=== PATIENT | female | born 1935 | race Caucasian/White ===

== ENCOUNTER 2017-01-17 13:27 | Inpatient (IN) | payer MEDICARE, BC ==
[2017-01-17] MEDS ORDERED: Levofloxacin/Dextrose 5%-Water 500 MG in Premix Bag 1 BAG IV SCH (14:00)
[2017-01-17] MEDS: Albuterol/Ipratropium 3.0-0.5 MG/3 ML Neb Soln NEB SCH ×2 (15:09→21:08)
--- NOTE | 2017-01-17 15:21 | CR ---
INDICATION: Cough. CHEST: PA and lateral views of the chest, 01/17/2017, compared with 07/24/2016 , revealed an appearance of infiltration at both lung bases, compatible with bibasilar pneumonia and left-sided pleuritis, since there is blunting of the left costophrenic angle and left posterior sulcus. These infiltrates appear new compared with the previous study. The heart is again noted to be enlarged with pacemaker leads unchanged in position from the right subclavian. Findings remain compatible with COPD, osteoporosis, and mild DJD lower thoracic spine with dextroconvex scoliosis again seen, slightly accentuated compared with the previous study. Lumpectomy and axillary node dissection noted on the left, as previously. IMPRESSION: 1. Bibasilar pneumonia and left pleuritis. 2. ASHD with cardiomegaly. No CHF. Pacemaker leads unchanged. 3. COPD. 4. Osteoporosis, scoliosis, DJD. 5. Left lumpectomy and axillary node dissection. MTDD
[2017-01-17] MEDS: Sodium Chloride 0.9% 10 ML Syringe FLUSH PRN (15:25)
[2017-01-17] MEDS: Sodium Chloride 0.9% 1,000 ML IV SCH (15:32)
[2017-01-17] MEDS ORDERED: Albuterol/Ipratropium 3.0-0.5 MG/3 ML Neb Soln NEB PRN (15:38)
--- NOTE | 2017-01-17 18:06 | PCM.HP ---
H&P History of Present Illness - General Date of Service: 01/17/17 Admit Problem/Dx: Admission Diagnosis/Problem Admission Diagnosis/Problem Pneumonia Source of Information: Patient History Limitations: Reports: No Limitations - History of Present Illness Initial Comments - Free Text/Narative: This is an 81-year-old female patient that has had cough for over a month. She' s been on several antibiotics. Including cephalexin and Omnicef. She had a chest x-ray a few weeks ago showed pneumonia. She is not getting better was seen today by Dr. Jones. He felt she should be admitted and she feels weak and has a cough that's mildly productive. She denies shortness of breath. She has some fevers and chills. No ear pain, nasal congestion or sore throat. History of asthma - Related Data Allergies/Adverse Reactions: Allergies Allergy/AdvReac Type Severity Reaction Status Date / Time ibuprofen Allergy Itching Verified 07/24/16 14:20 latex Allergy Itching Verified 07/24/16 14:20 Sulfa (Sulfonamide Allergy Stomach Verified 07/24/16 14:20 Antibiotics) Upset wheat Allergy Swelling Verified 07/24/16 14:20 codeine AdvReac Insomnia Verified 07/24/16 14:20 erythromycin base AdvReac Stomach Verified 07/24/16 14:20 Upset Home Medications: Home Meds ALPRAZolam [Xanax] 0.25 tab PO BID 06/25/14 [History] Acetaminophen 1,300 mg PO BID 06/25/14 [History] Doxepin [SINEquan] 25 mg PO BEDTIME 06/25/14 [History] FLUoxetine [PROzac] 10 mg PO DAILY 06/25/14 [History] FLUoxetine [PROzac] 20 mg PO DAILY 06/25/14 [History] Furosemide [Lasix] 20 mg PO DAILY 06/25/14 [History] Lisinopril [Prinivil] 5 mg PO BID 06/25/14 [History] Montelukast Sodium 10 mg PO DAILY 06/25/14 [History] Nitroglycerin [Nitrostat] 0.4 mg SL ASDIRECTED PRN 06/25/14 [History] Omeprazole 20 mg PO BIDAC 06/25/14 [History] Levothyroxine 75 mcg PO ACBRK 06/26/14 [History] Cyanocobalamin (Vitamin B-12) [Vitamin B-12] 500 mcg SL WITHDINNER 05/12/15 [ History] Acetaminophen [Pain Reliever] 1,000 mg PO WITHDINNER 03/10/16 [History] Clopidogrel [Plavix] 75 mg PO DAILY 03/10/16 [History] Dicyclomine [Bentyl] 20 mg PO WITHDINNER 03/10/16 [History] Fexofenadine HCl [Aller-Ease] 180 mg PO DAILY 03/10/16 [History] guaiFENesin [Mucinex] 600 mg PO BID PRN 03/10/16 [History] Albuterol [Proair HFA] 2 puff INH Q4HR PRN 03/24/16 [History] Fluticasone Propionate 2 spray JUSTEN DAILY 03/24/16 [History] Fluticasone/Salmeterol [Advair Diskus 500-50] 1 puff INH BID 03/24/16 [History] Potassium Chloride 20 meq PO BIDMEALS 03/24/16 [History] ALPRAZolam [Xanax] 0.25 mg PO DAILY PRN 07/24/16 [History] Digoxin 125 mcg PO DAILY 07/24/16 [History] Iron,Carbonyl/Ascorbic Acid [Vitron-C Tablet] 1 tab PO DAILY 07/25/16 [History] atorvaSTATin [Lipitor] 40 mg PO BEDTIME 07/25/16 [History] Ondansetron [Zofran ODT] 4 mg PO Q6H PRN #30 tab.dis 07/26/16 [Rx] Aspirin [Halfprin] 81 mg PO DAILY 01/17/17 [History] Calcium Carbonate/Vitamin D3 [Calcium 600 + Vit D Tablet] 1 tab PO WITHDINNER [History] Cholecalciferol (Vitamin D3) [Vitamin D3] 2,000 unit PO DAILY 01/17/17 [History] Dextromethorphan/guaiFENesin [Robitussin DM] 10 ml PO Q6H PRN 01/17/17 [History] Vit A/Vit C/Vit E/Selenium Yst [Antioxidant Formula Tablet] 1 tab PO BEDTIME 05/26 [History] Past Medical History HEENT History: Reports: Cataract Cardiovascular History: Reports: Automatic Implantable Cardioverter Defibrillators, Heart Failure, High Cholesterol, Hypertension, DC, SOB on Exertion, Stents Respiratory History: Reports: Asthma, SOB Gastrointestinal History: Reports: GERD 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: Musculoskeletal History: Reports: Other (See Below) Other Musculoskeletal History: chronic pain in both knees Psychiatric History: Reports: Anxiety, Depression Endocrine/Metabolic History: Reports: Hypothyroidism Oncologic (Cancer) History: Reports: Breast Dermatologic History: Reports: Eczema, Other (See Below) Other Dermatologic History: long ago - Infectious Disease History Infectious Disease History: Reports: Influenza, Measles, Mumps - Past Surgical History HEENT Surgical History: Reports: Cataract Surgery, Naso-Sinus Surgery, Other ( See Below) Cardiovascular Surgical History: Reports: Carotid Stents Female Surgical History: Reports: Mastectomy, Other (See Below) Social & Family History - Family History Family Medical History: Noncontributory - Tobacco Use Smoking Status *Q: Never Smoker Second Hand Smoke Exposure: No - Caffeine Use Caffeine Use: Reports: Coffee - Alcohol Use Days Per Week of Alcohol Use: 0 - Recreational Drug Use Recreational Drug Use: No H&P Review of Systems - Review of Systems: Review Of Systems: See Below General: Reports: Fever, Chills HEENT: Reports: No Symptoms Pulmonary: Reports: Cough, Sputum. Denies: Wheezing, Pleuritic Chest Pain, Hemoptysis Cardiovascular: Reports: No Symptoms Gastrointestinal: Reports: No Symptoms Genitourinary: Reports: No Symptoms Musculoskeletal: Reports: No Symptoms Skin: Reports: No Symptoms Psychiatric: Reports: No Symptoms Neurological: Reports: No Symptoms Hematologic/Lymphatic: Reports: No Symptoms Immunologic: Reports: No Symptoms Exam - Exam Exam: See Below - Vital Signs Vital Signs: Last Vital Signs Temp 97.9 F 01/17/17 15:45 Pulse 66 01/17/17 15:45 Resp 20 01/17/17 15:45 BP 119/51 L 01/17/17 15:45 Pulse Ox 96 01/17/17 15:45 Weight: 104 lb 1.6 oz - Exam General: Alert, Oriented, Cooperative HEENT: Mucosa Moist & [place], TMs Clear Neck: Supple, Trachea Midline Lungs: Clear to Auscultation, Normal Respiratory Effort. No: Crackles, Rales, Rhonchi, Rub Cardiovascular: Regular Rate, Regular Rhythm, Normal S1, Normal S2 Abdomen: Normal Bowel Sounds, Soft. No: Peritoneal Signs, Distention, Guarding Rectal (Female) Exam: Other Extremities: Normal Inspection Skin: Warm, Dry Neuro Extensive - Mental Status: Alert, Oriented x3, Normal Mood/Affect, Normal Cognition, Memory Intact Neuro Extensive - Motor, Sensory, Reflexes: Normal Gait Psychiatric: Alert, Normal Affect, Normal Mood - Patient Data Lab Results Last 24 hrs: Laboratory Results - last 24 hr 01/17/17 01/17/17 Range/Units 14:30 14:30 WBC 11.0 (4.5-12.0) X10-3/uL RBC 3.09 L (3.23-5.20) x10(6)uL Hgb 9.8 L (11.5-15.5) g/dL Hct 29.4 L (30.0-51.3) % MCV 95.1 (80-96) fL MCH 31.6 (27.7-33.6) pg MCHC 33.2 (32.2-35.4) g/dL RDW 12.3 (11.5-15.5) % Plt Count 308 (125-369) X10(3)uL MPV 7.6 (7.4-10.4) fL Add Manual Diff Yes Neutrophils % (Manual) 71 (46-82) % Band Neutrophils % 5 (0-6) % Lymphocytes % (Manual) 14 (13-37) % Monocytes % (Manual) 9 (4-12) % Eosinophils % (Manual) 1 (0-5) % Sodium 133 L (135-145) mmol/L Potassium 5.4 H D (3.5-5.3) mmol/L Chloride 106 D (100-110) mmol/L Carbon Dioxide 17 L (23-29) mmol/L BUN 28 H (8-23) mg/dL Creatinine 1.1 (0.6-1.3) mg/dL Est Cr Clr Drug Dosing 30.58 mL/min Estimated GFR (MDRD) 48 L (>60) BUN/Creatinine Ratio 25.5 H (9-20) Glucose 101 (80-116) mg/dL Calcium 9.5 (8.6-10.2) mg/dL Total Bilirubin 0.5 (0.1-1.3) mg/dL AST 21 D (5-27) IU/L ALT 24 D (14-26) IU/L Alkaline Phosphatase 52 L (56-112) IU/L Total Protein 7.6 (6.0-8.0) g/dL Albumin 3.2 (3.2-4.6) g/dL Globulin 4.4 g/dL Albumin/Globulin Ratio 0.7 Result Diagrams: 01/17/17 14:30 01/17/17 14:30 *Q Meaningful Use (ADM) - VTE *Q VTE Criteria *Q: - Stroke *Q Stroke Criteria *Q: - AMI *Q AMI Criteria *Q: - Problem List (1) Pneumonia of both lower lobes SNOMED Code(s): 502370791, 621640431 ICD Code: J18.9 - PNEUMONIA, UNSPECIFIED ORGANISM Status: Acute Current Visit: Yes Problem List Initiated/Reviewed/Updated: Yes Orders Last 24hrs: Active Orders 24 hr Category Date Time Status Patient Status [ADT] Routine ADT 01/17/17 13:38 Active Height and Weight [RC] DAILY Care 01/17/17 13:38 Active IS (RT) [RT Incentive Spirometry] [RC] ASDIRECTED Care 01/17/17 15:13 Active Intake and Output [RC] 06,14,22 Care 01/17/17 13:39 Active Oxygen Therapy [RC] PRN Care 01/17/17 13:38 Active RT Aerosol Therapy [RC] ASDIRECTED Care 01/17/17 13:40 Active Up With Assistance [RC] ASDIRECTED Care 01/17/17 13:38 Active VTE/DVT Education [RC] Per Unit Routine Care 01/17/17 13:38 Active Vital Signs [RC] 00,04,08,12,16,20 Care 01/17/17 13:38 Active Regular Diet [DIET] Diet 01/17/17 Breakfast Ordered CULTURE BLOOD [BC] Urgent Lab 01/17/17 14:30 Received CULTURE BLOOD [BC] Urgent Lab 01/17/17 14:35 Received CULTURE SPUTUM + SMEAR [RM] Stat Lab 01/17/17 16:00 Received Albuterol/Ipratropium [DuoNeb 3.0-0.5 MG/3 ML] Med 01/17/17 15:38 Active 3 ml NEB ASDIRECTED PRN Albuterol/Ipratropium [DuoNeb 3.0-0.5 MG/3 ML] Med 01/17/17 16:00 Active 3 ml NEB QIDRT Levofloxacin/Dextrose 5%-Water [Levaquin in D5W 250 MG/ Med 01/18/17 16:00 Active 50 ML] 250 mg Premix Bag 1 bag IV Q24H Piperacillin/Tazobactam [Zosyn] 2.25 gm Med 01/17/17 17:00 Active Sodium Chloride 0.9% [Normal Saline] 50 ml IV Q6H Sodium Chloride 0.9% [Normal Saline] 1,000 ml Med 01/17/17 13:45 Active IV ASDIRECTED Sodium Chloride 0.9% [Saline Flush] Med 01/17/17 13:38 Active 10 ml FLUSH ASDIRECTED PRN Blood Culture x2 Reflex Set [OM.PC] Urgent Oth 01/17/17 13:38 Ordered Peripheral IV Insertion Adult [OM.PC] Routine Oth 01/17/17 13:38 Ordered Resuscitation Status Routine Resus Stat 01/17/17 13:38 Ordered Medication Orders Albuterol/Ipratropium (Duoneb 3.0-0.5 Mg/3 Ml) 3 ml NEB QIDRT AMEE Last Admin: 01/17/17 15:09 Dose: 3 ml Albuterol/Ipratropium (Duoneb 3.0-0.5 Mg/3 Ml) 3 ml NEB ASDIRECTED PRN PRN Reason: SHORTNESS OF BREATH Piperacillin Sod/Tazobactam (Sod 2.25 gm/ Sodium Chloride) 50 mls @ 100 mls/hr IV Q6H AMEE Sodium Chloride (Normal Saline) 1,000 mls @ 100 mls/hr IV ASDIRECTED AMEE Last Admin: 01/17/17 15:32 Dose: 100 mls/hr Levofloxacin/Dextrose 250 mg/ (Premix) 50 mls @ 50 mls/hr IV Q24H AMEE Sodium Chloride (Saline Flush) 10 ml FLUSH ASDIRECTED PRN PRN Reason: Keep Vein Open Last Admin: 01/17/17 15:25 Dose: 10 ml Assessment/Plan Comment:: 1. Admit for pneumonia. 2. Antibodies ordered. See orders. 3. Regular diet. 4. Up ad krystal. 5. Patient wants to be a DNR. 6. Tessalon for cough. Nebulizers for cough when necessary.
[2017-01-17] MEDS ORDERED: GUAIFENESIN 100 MG/5 ML PO PRN (18:34)
[2017-01-17] MEDS ORDERED: Ondansetron 4 MG Tab.DIS PO PRN (18:40)
[2017-01-17] MEDS ORDERED: ALPRAZolam 0.25 MG Tab PO PRN (18:40)
[2017-01-17] MEDS ORDERED: guaiFENesin 600 MG Tab.ER PO PRN (18:40)
[2017-01-17] MEDS ORDERED: Nitroglycerin 0.4 MG Tab.SL SL PRN (18:40)
[2017-01-17] MEDS ORDERED: Albuterol 8 GM Inhaler INH PRN (18:40)
[2017-01-17] MEDS: Piperacillin/Tazobactam 2.25 GM in Sodium Chloride 0.9% 50 ML IV SCH ×3 (18:45)
[2017-01-17] MEDS: Levothyroxine 75 MCG Tab PO SCH (19:51)
[2017-01-17] MEDS: guaiFENesin/Dextromethorphan 100-10 MG/5 ML Soln 5 ML Cup PO PRN (19:53)
[2017-01-17] MEDS ORDERED: Acetaminophen 325 MG Tab PO SCH (21:00)
[2017-01-17] MEDS: Lisinopril 5 MG Tab PO SCH (21:09)
[2017-01-17] MEDS: Formoterol/Mometasone 200-5 MCG 8.8 GM Inhaler IH SCH (21:09)
[2017-01-17] MEDS: ALPRAZolam 0.25 MG Tab PO SCH (21:09)
[2017-01-17] MEDS: atorvaSTATin 40 MG Tab PO SCH (21:10)
[2017-01-17] MEDS: Doxepin 25 MG Cap PO SCH (21:10)
[2017-01-18] MEDS: Sodium Chloride 0.9% 1,000 ML IV SCH ×2 (03:43→14:43)
[2017-01-18] MEDS: Piperacillin/Tazobactam 2.25 GM in Sodium Chloride 0.9% 50 ML IV SCH ×4 (05:09→22:52)
[2017-01-18] MEDS: Formoterol/Mometasone 200-5 MCG 8.8 GM Inhaler IH SCH ×2 (07:04→20:05)
[2017-01-18] MEDS: Albuterol/Ipratropium 3.0-0.5 MG/3 ML Neb Soln NEB SCH ×4 (07:06→20:06)
[2017-01-18] MEDS ORDERED: Potassium Chloride 10 MEQ Tab.ER PO SCH (08:00)
[2017-01-18] MEDS ORDERED: Fluticasone Propionate Nasal Spray 16 GM Bottle NAS SCH (09:00)
[2017-01-18] MEDS: Potassium Chloride 20 MEQ Tab.ER PO SCH ×2 (09:21→18:05)
[2017-01-18] MEDS: Omeprazole 20 MG Cap.CR PO SCH ×2 (09:21→16:48)
[2017-01-18] MEDS: Levothyroxine 75 MCG Tab PO SCH (09:21)
[2017-01-18] MEDS: Aspirin 81 MG Tab.EC PO SCH (09:24)
[2017-01-18] MEDS: Furosemide 20 MG Tab PO SCH (09:24)
[2017-01-18] MEDS: Clopidogrel 75 MG Tab PO SCH (09:25)
--- NOTE | 2017-01-18 09:25 | PCM.PN ---
- General Info Date of Service: 01/18/17 Admission Dx/Problem (Free Text): Patient states she had a rough night. She normally takes Gas-X 3 times a day and did not have it so she did not sleep well. She has a little bit of cough which denies shortness of breath. She had a little fever but no chills. No nasal congestion, ear pain. - Patient Data Vitals - most recent: Last Vital Signs Temp 99.1 F 01/18/17 03:50 Pulse 74 01/18/17 07:10 Resp 20 01/18/17 03:50 BP 119/45 L 01/18/17 00:05 Pulse Ox 97 01/18/17 07:10 Weight - most recent: 104 lb 1.6 oz I&O - last 24 hours: Intake & Output 01/17/17 01/18/17 01/18/17 22:59 06:59 14:59 Intake Total 814 673 Output Total 200 850 Balance 614 -177 Lab Results last 24 hrs: Laboratory Results - last 24 hr 01/17/17 01/17/17 Range/Units 14:30 14:30 WBC 11.0 (4.5-12.0) X10-3/uL RBC 3.09 L (3.23-5.20) x10(6)uL Hgb 9.8 L (11.5-15.5) g/dL Hct 29.4 L (30.0-51.3) % MCV 95.1 (80-96) fL MCH 31.6 (27.7-33.6) pg MCHC 33.2 (32.2-35.4) g/dL RDW 12.3 (11.5-15.5) % Plt Count 308 (125-369) X10(3)uL MPV 7.6 (7.4-10.4) fL Add Manual Diff Yes Neutrophils % (Manual) 71 (46-82) % Band Neutrophils % 5 (0-6) % Lymphocytes % (Manual) 14 (13-37) % Monocytes % (Manual) 9 (4-12) % Eosinophils % (Manual) 1 (0-5) % Sodium 133 L (135-145) mmol/L Potassium 5.4 H D (3.5-5.3) mmol/L Chloride 106 D (100-110) mmol/L Carbon Dioxide 17 L (23-29) mmol/L BUN 28 H (8-23) mg/dL Creatinine 1.1 (0.6-1.3) mg/dL Est Cr Clr Drug Dosing 30.58 mL/min Estimated GFR (MDRD) 48 L (>60) BUN/Creatinine Ratio 25.5 H (9-20) Glucose 101 (80-116) mg/dL Calcium 9.5 (8.6-10.2) mg/dL Total Bilirubin 0.5 (0.1-1.3) mg/dL AST 21 D (5-27) IU/L ALT 24 D (14-26) IU/L Alkaline Phosphatase 52 L (56-112) IU/L Total Protein 7.6 (6.0-8.0) g/dL Albumin 3.2 (3.2-4.6) g/dL Globulin 4.4 g/dL Albumin/Globulin Ratio 0.7 Med Orders - Current: Current Medications Acetamin[facility] ([facility] Acetaminophen (Tylenol Arthritis Pain) 1,300 mg PO BID [facility] Albuterol (Ventolin Hfa) 0 gm INH Q4H PRN PRN Reason: Dyspnea Albuterol/Ipratropium (Duoneb 3.0-0.5 Mg/3 Ml) 3 ml NEB QIDRT [facility] Last Admin: 01/18/17 07:06 Dose: 3 ml Albuterol/Ipratropium (Duoneb 3.0-0.5 Mg/3 Ml) 3 ml NEB ASDIRECTED PRN PRN Reason: SHORTNESS OF BREATH Alprazolam (Xanax) 0.25 mg PO DAILY PRN PRN Reason: Anxiety Alprazolam (Xanax) 0.25 mg PO BID [facility] Last Admin: 01/17/17 21:09 Dose: 0.25 mg Aspirin (Halfprin) 81 mg PO DAILY [facility] Atorvastatin Calcium (Lipitor) 40 mg PO BEDTIME [facility] Last Admin: 01/17/17 21:10 Dose: 40 mg Calcium Carbonate (Calcium Carbonate/Vitamin D 1250 Mg-200 Unit) [facility] Cholecalciferol (Vitamin D3) 2,000 units PO DAILY [facility] Clopidogrel Bisulfate (Plavix) 75 mg PO DAILY [facility] Cyanocobalamin (Vitamin B12) [facility] Dicyclomine HCl (Bentyl) 20 mg PO WITHDINNER [facility] Digoxin (Lanoxin) 125 mcg PO DAILY [facility] Doxepin HCl (Sinequan) 25 mg PO BEDTIME [facility] Last Admin: 01/17/17 21:10 Dose: 25 mg Fexofenadine HCl (Chantal) 180 mg PO DAILY [facility] Fluoxetine HCl (Prozac) 10 mg PO DAILY [facility] Fluoxetine HCl (Prozac) 20 mg PO DAILY [facility] Fluticasone Propionate (Flonase) 0 gm NASBOTH BEDTIME [facility] Furosemide (Lasix) 20 mg PO DAILY [facility] Guaifenesin (Robitussin) 100 mg PO Q4H PRN PRN Reason: Cough Guaifenesin (Mucinex) 600 mg PO BID PRN PRN Reason: Cough Guaifenesin/Phenylephrine HCl (Robitussin Dm) 10 ml PO Q6H PRN PRN Reason: Cough Last Admin: 01/17/17 19:53 Dose: 10 ml Piperacillin Sod/Tazobactam (Sod 2.25 gm/ Sodium Chloride) 50 mls @ 100 mls/hr IV Q6H [facility] Last Admin: 01/18/17 05:09 Dose: 100 mls/hr Sodium Chloride (Normal Saline) 1,000 mls @ 100 mls/hr IV ASDIRECTED [facility] Last Admin: 01/18/17 03:43 Dose: 100 mls/hr Levofloxacin/Dextrose 250 mg/ (Premix) 50 mls @ 50 mls/hr IV Q24H [facility] Levothyroxine Sodium (Levothyroxine) 75 mcg PO ACBRK [facility] Last Admin: 01/18/17 09:21 Dose: 75 mcg Lisinopril (Prinivil) 5 mg PO BID [facility] Last Admin: 01/17/17 21:09 Dose: 5 mg Mometasone Furoate/Formoterol Fumar (Dulera 200-5 Mcg) 2 puff IH BIDRT [facility] Montelukast Sodium (Singulair) 10 mg PO DAILY [facility] Nitroglycerin (Nitrostat) 0.4 mg SL ASDIRECTED PRN PRN Reason: Chest Pain Non-Formulary Medication (Vit A/Vit C/Vit E/Selenium Yst [Antioxidant Formula Tablet]) 1 tab PO BEDTIME [facility] Non-Formulary Medication (Iron,Carbonyl/Ascorbic Acid [Vitron-C Tablet]) 1 tab PO DAILY [facility] Omeprazole (Omeprazole) 20 mg PO BIDAC [facility] Last Admin: 01/18/17 09:21 Dose: 20 mg Ondansetron HCl (Zofran Odt) 4 mg PO Q6H PRN PRN Reason: Nausea Potassium Chloride (Klor-Con M20) 20 meq PO BIDMEALS [facility] Last Admin: 01/18/17 09:21 Dose: 20 meq Simethicone (Simethicone) 80 mg PO TID PRN PRN Reason: Gas Sodium Chloride (Saline Flush) 10 ml FLUSH ASDIRECTED PRN PRN Reason: Keep Vein Open Last Admin: 01/17/17 15:25 Dose: 10 ml Discontinued Medications Acetaminophen (Tylenol) 1,300 mg PO BID [facility] Last Admin: 01/17/17 21:09 Dose: 1,300 mg Fluticasone Propionate (Flonase) 0 gm JUSTEN DAILY [facility] Levofloxacin/Dextrose 500 mg/ (Premix) 100 mls @ 100 mls/hr IV Q24H [facility] Stop: 01/17/17 17:00 Last Admin: 01/17/17 15:32 Dose: 100 mls/hr Mometasone Furoate/Formoterol Fumar (Dulera 200-5 Mcg) 2 puff IH BIDRT [facility] Last Admin: 01/18/17 07:04 Dose: 2 puff Potassium Chloride (Klor-Con 10) 20 meq PO BIDMEALS [facility] - Exam General: alert, oriented Neck: supple Lungs: Clear to auscultation, Normal respiratory effort. No: Crackles, Rales, Rhonchi, Rub Cardiovascular: Regular Rate, Regular Rhythm, No Murmurs - Problem List & Annotations (1) Pneumonia of both lower lobes SNOMED Code(s): 253902891, [id number] Code(s): J18.9 - PNEUMONIA, UNSPECIFIED ORGANISM Status: Acute Current Visit: Yes - Problem List Review Problem List Initiated/Reviewed/Updated: Yes - My Orders Last 24 Hours: My Active Orders 01/17/17 15:13 IS (RT) [RT Incentive Spirometry] [RC] ASDIRECTED 01/17/17 18:34 guaiFENesin [Robitussin] 100 mg PO Q4H PRN 01/17/17 18:40 ALPRAZolam [Xanax] 0.25 mg PO DAILY PRN Albuterol [Ventolin HFA] 0 gm INH Q4H PRN Dextromethorphan/guaiFENesin [Robitussin DM] 10 ml PO Q6H PRN Nitroglycerin [Nitrostat] 0.4 mg SL ASDIRECTED PRN Ondansetron [Zofran ODT] 4 mg PO Q6H PRN guaiFENesin [Mucinex] 600 mg PO BID PRN 01/17/17 18:45 Levothyroxine 75 mcg PO ACBRK 01/17/17 21:00 ALPRAZolam [Xanax] 0.25 mg PO BID Doxepin [SINEquan] 25 mg PO BEDTIME Lisinopril [Prinivil] 5 mg PO BID Vit A/Vit C/Vit E/Selenium Yst [Antioxidant Formula Tablet] 1 tab PO BEDTIME atorvaSTATin [Lipitor] 40 mg PO BEDTIME 01/18/17 07:30 Omeprazole 20 mg PO BIDAC 01/18/17 08:00 Potassium Chloride [Klor-Con M20] 20 meq PO BIDMEALS 01/18/17 08:55 Simethicone 80 mg PO TID PRN 01/18/17 09:00 Acetaminophen [Tylenol Arthritis Pain] 1,300 mg PO BID Aspirin [Halfprin] 81 mg PO DAILY Cholecalciferol (Vitamin D3) [Vitamin D3] 2,000 units PO DAILY Clopidogrel [Plavix] 75 mg PO DAILY Digoxin [Lanoxin] 125 mcg PO DAILY FLUoxetine [PROzac] 10 mg PO DAILY FLUoxetine [PROzac] 20 mg PO DAILY Fexofenadine [Chantal] 180 mg PO DAILY Furosemide [Lasix] 20 mg PO DAILY Iron,Carbonyl/Ascorbic Acid [Vitron-C Tablet] 1 tab PO DAILY Montelukast [Singulair] 10 mg PO DAILY 01/18/17 16:00 Levofloxacin/Dextrose 5%-Water [Levaquin in D5W 250 MG/50 ML] 250 mg Premix Bag 1 bag IV Q24H 01/18/17 18:00 Acetaminophen [Tylenol Extra Strength] 1,000 mg PO WITHDINNER Calcium Carbonate/Vitamin D3 [Calcium Carbonate/Vitamin D 1250 MG-200 Unit] 1 tab PO WITHDINNER Cyanocobalamin (Vitamin B12) [Vitamin B12] 500 mcg PO WITHDINNER Dicyclomine [Bentyl] 20 mg PO WITHDINNER 01/18/17 21:00 Fluticasone Propionate [Flonase] 0 gm NASBOTH BEDTIME Mometasone/Formoterol [Dulera 200-5 MCG] 2 puff IH BIDRT - Plan Plan:: 1. The head nurse called her daughter was pharmacist to find out what kind of gastric minutes and she was on. It was Gas-X 3 times a day. Will restart that. 2. Continue current care.
[2017-01-18] MEDS: Digoxin 125 MCG Tab PO SCH (09:28)
[2017-01-18] MEDS: Lisinopril 5 MG Tab PO SCH ×2 (09:28→20:07)
[2017-01-18] MEDS: Cholecalciferol (Vitamin D3) 1,000 Unit Tab PO SCH (09:29)
[2017-01-18] MEDS: FLUoxetine 10 MG Cap PO SCH (09:29)
[2017-01-18] MEDS: Montelukast 10 MG Tab PO SCH (09:29)
[2017-01-18] MEDS: FLUoxetine 20 MG Cap PO SCH (09:29)
[2017-01-18] MEDS: Acetaminophen 650 MG Tab.ER PO SCH ×2 (09:29→20:11)
[2017-01-18] MEDS: ALPRAZolam 0.25 MG Tab PO SCH ×2 (09:41→20:11)
[2017-01-18] MEDS: guaiFENesin/Dextromethorphan 100-10 MG/5 ML Soln 5 ML Cup PO PRN ×2 (09:46→15:44)
[2017-01-18] MEDS: Ferrous Sulfate 325 MG Tab PO SCH (11:09)
[2017-01-18] MEDS: Ascorbic Acid 500 MG Tab PO SCH (11:10)
[2017-01-18] MEDS: Fluticasone Propionate Nasal Spray 16 GM Bottle NASBOTH SCH ×2 (11:32→20:06)
[2017-01-18] MEDS: Trolamine Salicylate/Aloe Vera 10% Crm 85 GM Tube TOP PRN ×2 (15:55→22:58)
[2017-01-18] MEDS: Levofloxacin/Dextrose 5%-Water 250 MG in Premix Bag 1 BAG IV SCH (16:00)
[2017-01-18] MEDS: Dicyclomine 10 MG Cap PO SCH (18:04)
[2017-01-18] MEDS: Calcium Carbonate/Vitamin D3 1250 MG-200 Unit Tab PO SCH (18:04)
[2017-01-18] MEDS: Acetaminophen 500 MG Tab PO SCH (18:05)
[2017-01-18] MEDS: Cyanocobalamin (Vitamin B12) 500 MCG Tab PO SCH (18:05)
[2017-01-18] MEDS: atorvaSTATin 40 MG Tab PO SCH (20:06)
[2017-01-18] MEDS: Doxepin 25 MG Cap PO SCH (20:10)
[2017-01-18] MEDS: Benzonatate 100 MG Cap PO SCH (20:10)
[2017-01-18] MEDS: Multivitamins, Therapeutic with Minerals Tab PO SCH (20:11)
[2017-01-18] MEDS ORDERED: Fluticasone Propionate Nasal Spray 16 GM Bottle NASBOTH SCH (21:00)
[2017-01-18] MEDS: Simethicone 80 MG Tab.Chew PO PRN (23:56)
[2017-01-19] MEDS: guaiFENesin/Dextromethorphan 100-10 MG/5 ML Soln 5 ML Cup PO PRN ×3 (00:10→21:41)
[2017-01-19] MEDS: Piperacillin/Tazobactam 2.25 GM in Sodium Chloride 0.9% 50 ML IV SCH ×3 (04:55→17:04)
[2017-01-19] MEDS: Levothyroxine 75 MCG Tab PO SCH (06:45)
[2017-01-19] MEDS: Omeprazole 20 MG Cap.CR PO SCH ×2 (06:45→17:10)
[2017-01-19] MEDS: Formoterol/Mometasone 200-5 MCG 8.8 GM Inhaler IH SCH ×2 (06:45→20:51)
[2017-01-19] MEDS: Albuterol/Ipratropium 3.0-0.5 MG/3 ML Neb Soln NEB SCH ×4 (07:06→20:51)
--- NOTE | 2017-01-19 09:22 | PCM.PN ---
- General Info Date of Service: 01/19/17 Admission Dx/Problem (Free Text): Patient has less cough today. She states she's been using some Robitussin which is helping. She's also Tesnadiraon Temitope currently. She denies fevers, chills, shortness of breath. Still has some weakness and fatigue. - Patient Data Vitals - most recent: Last Vital Signs Temp 99.4 F 01/19/17 04:55 Pulse 78 01/19/17 07:10 Resp 18 01/19/17 04:55 BP 114/47 L 01/19/17 04:55 Pulse Ox 96 01/19/17 07:10 Weight - most recent: 104 lb 1.6 oz I&O - last 24 hours: Intake & Output 01/18/17 01/19/17 01/19/17 22:59 06:59 14:59 Intake Total 395 125 Output Total 600 1100 Balance -205 125 -1100 Charlie Results last 24 hrs: Microbiology 01/17/17 16:00 Gram Stain - Final Sputum - Expectorated Sputum Culture - Preliminary Gram Negative Rods 01/17/17 14:35 Aerobic Blood Culture - Preliminary Blood - Venous - Lab Draw NO GROWTH AFTER 1 DAY Anaerobic Blood Culture - Preliminary NO GROWTH AFTER 1 DAY 01/17/17 14:30 Aerobic Blood Culture - Preliminary Blood - Venous NO GROWTH AFTER 1 DAY Anaerobic Blood Culture - Preliminary NO GROWTH AFTER 1 DAY Med Orders - Current: Current Medications Acetaminophen (Tylenol Extra Strength) 1,000 mg PO WITHDINNER [facility] Last Admin: 01/18/17 18:05 Dose: 1,000 mg Acetaminophen (Tylenol Arthritis Pain) 1,300 mg PO BID [facility] Last Admin: 01/18/17 20:11 Dose: 1,300 mg Albuterol (Ventolin Hfa) 0 gm INH Q4H PRN PRN Reason: Dyspnea Albuterol/Ipratropium (Duoneb 3.0-0.5 Mg/3 Ml) 3 ml NEB QIDRT [facility] Last Admin: 01/19/17 07:06 Dose: 3 ml Albuterol/Ipratropium (Duoneb 3.0-0.5 Mg/3 Ml) 3 ml NEB ASDIRECTED PRN PRN Reason: SHORTNESS OF BREATH Alprazolam (Xanax) 0.25 mg PO DAILY PRN PRN Reason: Anxiety Alprazolam (Xanax) 0.25 mg PO BID [facility] Last Admin: 01/18/17 20:11 Dose: 0.25 mg Ascorbic Acid (Vitamin C) 500 mg PO DAILY [facility] Last Admin: 01/18/17 11:10 Dose: 500 mg Aspirin (Halfprin) 81 mg PO DAILY [facility] Last Admin: 01/18/17 09:24 Dose: 81 mg Atorvastatin Calcium (Lipitor) 40 mg PO BEDTIME [facility] Last Admin: 01/18/17 20:06 Dose: 40 mg Benzonatate (Tessalon Perles) 100 mg PO TID [facility] Last Admin: 01/18/17 20:10 Dose: 100 mg Calcium Carbonate (Calcium Carbonate/Vitamin D 1250 Mg-200 Unit) 1 tab PO WITHDINNER [facility] Last Admin: 01/18/17 18:04 Dose: 1 tab Cholecalciferol (Vitamin D3) 2,000 units PO DAILY [facility] Last Admin: 01/18/17 09:29 Dose: 2,000 units Clopidogrel Bisulfate (Plavix) 75 mg PO DAILY [facility] Last Admin: 01/18/17 09:25 Dose: 75 mg Cyanocobalamin (Vitamin B12) 500 mcg PO WITHDINNER [facility] Last Admin: 01/18/17 18:05 Dose: 500 mcg Dicyclomine HCl (Bentyl) 20 mg PO WITHDINNER [facility] Last Admin: 01/18/17 18:04 Dose: 20 mg Digoxin (Lanoxin) 125 mcg PO DAILY [facility] Last Admin: 01/18/17 09:28 Dose: 125 mcg Doxepin HCl (Sinequan) 25 mg PO BEDTIME [facility] Last Admin: 01/18/17 20:10 Dose: 25 mg Ferrous Sulfate (Ferrous Sulfate) 325 mg PO DAILY [facility] Last Admin: 01/18/17 11:09 Dose: 325 mg Fexofenadine HCl (Chantal) 180 mg PO DAILY [facility] Last Admin: 01/18/17 09:24 Dose: 180 mg Fluoxetine HCl (Prozac) 10 mg PO DAILY [facility] Last Admin: 01/18/17 09:29 Dose: 10 mg Fluoxetine HCl (Prozac) 20 mg PO DAILY [facility] Last Admin: 01/18/17 09:29 Dose: 20 mg Fluticasone Propionate (Flonase) 0 gm NASBOTH BID [facility] Last Admin: 01/18/17 20:06 Dose: 1 spray Furosemide (Lasix) 20 mg PO DAILY [facility] Last Admin: 01/18/17 09:24 Dose: 20 mg Guaifenesin (Robitussin) 100 mg PO Q4H PRN PRN Reason: Cough Guaifenesin/Phenylephrine HCl (Robitussin Dm) 10 ml PO Q6H PRN PRN Reason: Cough Last Admin: 01/19/17 00:10 Dose: 10 ml Piperacillin Sod/Tazobactam (Sod 2.25 gm/ Sodium Chloride) 50 mls @ 100 mls/hr IV Q6H [facility] Last Admin: 01/19/17 04:55 Dose: 100 mls/hr Levofloxacin/Dextrose 250 mg/ (Premix) 50 mls @ 50 mls/hr IV Q24H [facility] Last Admin: 01/18/17 16:00 Dose: 50 mls/hr Levothyroxine Sodium (Levothyroxine) 75 mcg PO ACBRK [facility] Last Admin: 01/19/17 06:45 Dose: 75 mcg Lisinopril (Prinivil) 5 mg PO BID [facility] Last Admin: 01/18/17 20:07 Dose: 5 mg Mometasone Furoate/Formoterol Fumar (Dulera 200-5 Mcg) 2 puff IH BIDRT [facility] Last Admin: 01/19/17 06:45 Dose: 2 puff Montelukast Sodium (Singulair) 10 mg PO DAILY [facility] Last Admin: 01/18/17 09:29 Dose: 10 mg Multivitamins/Minerals (Vitamins And Minerals) 1 tab PO BEDTIME [facility] Last Admin: 01/18/17 20:11 Dose: 1 tab Nitroglycerin (Nitrostat) 0.4 mg SL ASDIRECTED PRN PRN Reason: Chest Pain Omeprazole (Omeprazole) 20 mg PO BIDAC [facility] Last Admin: 01/19/17 06:45 Dose: 20 mg Ondansetron HCl (Zofran Odt) 4 mg PO Q6H PRN PRN Reason: Nausea Potassium Chloride (Klor-Con M20) 20 meq PO BIDMEALS [facility] Last Admin: 01/18/17 18:05 Dose: 20 meq Simethicone (Simethicone) 80 mg PO TID PRN PRN Reason: Gas Last Admin: 01/18/17 23:56 Dose: 80 mg Trolamine Salicylate (Aspercreme 10%) 1 gm TOP Q4H PRN PRN Reason: Pain Last Admin: 01/18/17 22:58 Dose: 1 applic Discontinued Medications Acetaminophen (Tylenol) 1,300 mg PO BID [facility] Last Admin: 01/17/17 21:09 Dose: 1,300 mg Fluticasone Propionate (Flonase) 0 gm JUSTEN DAILY [facility] Guaifenesin (Mucinex) 600 mg PO BID PRN PRN Reason: Cough Levofloxacin/Dextrose 500 mg/ (Premix) 100 mls @ 100 mls/hr IV Q24H [facility] Stop: 01/17/17 17:00 Last Admin: 01/17/17 15:32 Dose: 100 mls/hr Sodium Chloride (Normal Saline) 1,000 mls @ 100 mls/hr IV ASDIRECTED [facility] Last Admin: 01/18/17 14:43 Dose: 100 mls/hr Mometasone Furoate/Formoterol Fumar (Dulera 200-5 Mcg) 2 puff IH BIDRT [facility] Last Admin: 01/18/17 07:04 Dose: 2 puff Potassium Chloride (Klor-Con 10) 20 meq PO BIDMEALS [facility] Sodium Chloride (Saline Flush) 10 ml FLUSH ASDIRECTED PRN PRN Reason: Keep Vein Open Last Admin: 01/17/17 15:25 Dose: 10 ml - Exam General: alert, cooperative, moderate distress Lungs: Clear to auscultation, Normal respiratory effort. No: Crackles, Rales, Rhonchi Cardiovascular: Regular Rate, No Murmurs Extremities: no edema - Problem List & Annotations (1) Pneumonia of both lower lobes SNOMED Code(s): 551831962, 621057127 Code(s): J18.9 - PNEUMONIA, UNSPECIFIED ORGANISM Status: Acute Current Visit: Yes - Problem List Review Problem List Initiated/Reviewed/Updated: Yes - My Orders Last 24 Hours: My Active Orders 01/18/17 08:55 Simethicone 80 mg PO TID PRN 01/18/17 09:00 Acetaminophen [Tylenol Arthritis Pain] 1,300 mg PO BID Aspirin [Halfprin] 81 mg PO DAILY Cholecalciferol (Vitamin D3) [Vitamin D3] 2,000 units PO DAILY Clopidogrel [Plavix] 75 mg PO DAILY Digoxin [Lanoxin] 125 mcg PO DAILY FLUoxetine [PROzac] 10 mg PO DAILY FLUoxetine [PROzac] 20 mg PO DAILY Fexofenadine [Chantal] 180 mg PO DAILY Furosemide [Lasix] 20 mg PO DAILY Montelukast [Singulair] 10 mg PO DAILY 01/18/17 10:00 Fluticasone Propionate [Flonase] 0 gm NASBOTH BID 01/18/17 10:15 Ascorbic Acid [Vitamin C] 500 mg PO DAILY Ferrous Sulfate 325 mg PO DAILY 01/18/17 13:29 Trolamine Salicylate/Aloe Vera [Aspercreme 10%] 1 gm TOP Q4H PRN 01/18/17 16:00 Levofloxacin/Dextrose 5%-Water [Levaquin in D5W 250 MG/50 ML] 250 mg Premix Bag 1 bag IV Q24H 01/18/17 17:52 Up ad Valentine [RC] ASDIRECTED Convert IV to Saline Lock [OM.PC] Routine 01/18/17 18:00 Acetaminophen [Tylenol Extra Strength] 1,000 mg PO WITHDINNER Calcium Carbonate/Vitamin D3 [Calcium Carbonate/Vitamin D 1250 MG-200 Unit] 1 tab PO WITHDINNER Cyanocobalamin (Vitamin B12) [Vitamin B12] 500 mcg PO WITHDINNER Dicyclomine [Bentyl] 20 mg PO WITHDINNER 01/18/17 21:00 Benzonatate [Tessalon Perles] 100 mg PO TID Mometasone/Formoterol [Dulera 200-5 MCG] 2 puff IH BIDRT Multivitamins/Minerals [Vitamins and Minerals] 1 tab PO BEDTIME - Plan Plan:: 1. Blood cultures are negative so far. 2. Sputum culture grew gram negative rods. Discussed this with microbiology. They think they'll get identification by this afternoon. 3. Continue to ambulate the patient. Up in chair.
[2017-01-19] MEDS: Potassium Chloride 20 MEQ Tab.ER PO SCH ×2 (09:25→18:49)
[2017-01-19] MEDS: Ferrous Sulfate 325 MG Tab PO SCH (09:25)
[2017-01-19] MEDS: Fluticasone Propionate Nasal Spray 16 GM Bottle NASBOTH SCH ×2 (09:25→20:51)
[2017-01-19] MEDS: Digoxin 125 MCG Tab PO SCH (09:26)
[2017-01-19] MEDS: Aspirin 81 MG Tab.EC PO SCH (09:26)
[2017-01-19] MEDS: Furosemide 20 MG Tab PO SCH (09:26)
[2017-01-19] MEDS: Benzonatate 100 MG Cap PO SCH ×3 (09:27→21:26)
[2017-01-19] MEDS: Clopidogrel 75 MG Tab PO SCH (09:27)
[2017-01-19] MEDS: FLUoxetine 10 MG Cap PO SCH (09:27)
[2017-01-19] MEDS: Lisinopril 5 MG Tab PO SCH ×2 (09:27→21:23)
[2017-01-19] MEDS: Montelukast 10 MG Tab PO SCH (09:27)
[2017-01-19] MEDS: FLUoxetine 20 MG Cap PO SCH (09:27)
[2017-01-19] MEDS: Acetaminophen 650 MG Tab.ER PO SCH ×2 (09:28→21:27)
[2017-01-19] MEDS: ALPRAZolam 0.25 MG Tab PO SCH ×2 (09:28→21:41)
[2017-01-19] MEDS: Ascorbic Acid 500 MG Tab PO SCH (09:28)
[2017-01-19] MEDS: Cholecalciferol (Vitamin D3) 1,000 Unit Tab PO SCH (09:28)
[2017-01-19] MEDS: Simethicone 80 MG Tab.Chew PO PRN ×2 (12:55→21:41)
[2017-01-19] MEDS: Docusate Sodium 100 MG Cap PO SCH (12:55)
[2017-01-19] MEDS: Sodium Chloride 0.9% 10 ML Syringe FLUSH PRN (13:00)
[2017-01-19] MEDS ORDERED: Sodium Chloride 0.9% 250 ML IV SCH (16:00)
[2017-01-19] MEDS: Levofloxacin/Dextrose 5%-Water 250 MG in Premix Bag 1 BAG IV SCH (16:06)
--- NOTE | 2017-01-19 18:14 | PCM.SN ---
- Free Text/Narrative Note: Patient grew out pseudomonas aeruginosa sensitive to Cipro and Levaquin. Stop Zosyn and Levaquin. Start Cipro 500 mg twice a day by mouth.
[2017-01-19] MEDS: Acetaminophen 500 MG Tab PO SCH (18:49)
[2017-01-19] MEDS: Calcium Carbonate/Vitamin D3 1250 MG-200 Unit Tab PO SCH (18:49)
[2017-01-19] MEDS: Cyanocobalamin (Vitamin B12) 500 MCG Tab PO SCH (18:49)
[2017-01-19] MEDS: Dicyclomine 10 MG Cap PO SCH (18:49)
[2017-01-19] MEDS: Ciprofloxacin 500 MG Tab PO SCH (19:01)
[2017-01-19] MEDS: atorvaSTATin 40 MG Tab PO SCH (21:23)
[2017-01-19] MEDS: Doxepin 25 MG Cap PO SCH (21:26)
[2017-01-19] MEDS: Multivitamins, Therapeutic with Minerals Tab PO SCH (21:27)
[2017-01-20] MEDS: Formoterol/Mometasone 200-5 MCG 8.8 GM Inhaler IH SCH (06:35)
[2017-01-20] MEDS: Levothyroxine 75 MCG Tab PO SCH (06:36)
[2017-01-20] MEDS: Omeprazole 20 MG Cap.CR PO SCH (06:36)
[2017-01-20] MEDS: Albuterol/Ipratropium 3.0-0.5 MG/3 ML Neb Soln NEB SCH ×2 (07:24→11:20)
[2017-01-20] MEDS: Potassium Chloride 20 MEQ Tab.ER PO SCH (09:04)
[2017-01-20] MEDS: Cholecalciferol (Vitamin D3) 1,000 Unit Tab PO SCH (09:05)
[2017-01-20] MEDS: Ascorbic Acid 500 MG Tab PO SCH (09:05)
--- NOTE | 2017-01-20 09:05 | DISCH ---
DISCHARGE DATE: 01/20/2017 REASON FOR ADMISSION: 1. Community-acquired pneumonia. 2. History of congestive heart failure. 3. Generalized weakness. 4. Coronary artery disease. 5. Anxiety. DISCHARGE DIAGNOSES: 1. Community-acquired pneumonia. 2. History of congestive heart failure. 3. Generalized weakness. 4. Coronary artery disease. 5. Anxiety.. CONSULTATIONS: None. BRIEF HISTORY AND HOSPITAL COURSE: An 81-year-old female, admitted from the clinic by myself. She presented with chronic cough for more than four weeks after oral antibiotics failed. She was feeling weak, she was admitted, and treated with Zosyn/Levaquin initially. She improved progressively, was less short of breath by the 14th, and sputum grew Pseudomonas aeruginosa. She feels ready to go home and will be discharged on Levaquin. The rest of her home medications will be continued. >35 min FOLLOWUP: She will see Dr. Fuentes within 1 week of discharge. /[id number] ISHMAEL/JOVANI DELONG
[2017-01-20] MEDS: Docusate Sodium 100 MG Cap PO SCH (09:06)
[2017-01-20] MEDS: Ferrous Sulfate 325 MG Tab PO SCH (09:06)
[2017-01-20] MEDS: Furosemide 20 MG Tab PO SCH (09:07)
[2017-01-20] MEDS: Digoxin 125 MCG Tab PO SCH (09:07)
[2017-01-20] MEDS: Aspirin 81 MG Tab.EC PO SCH (09:07)
[2017-01-20] MEDS: Fluticasone Propionate Nasal Spray 16 GM Bottle NASBOTH SCH (09:07)
[2017-01-20] MEDS: FLUoxetine 20 MG Cap PO SCH (09:08)
[2017-01-20] MEDS: Montelukast 10 MG Tab PO SCH (09:08)
[2017-01-20] MEDS: Clopidogrel 75 MG Tab PO SCH (09:08)
[2017-01-20] MEDS: Lisinopril 5 MG Tab PO SCH (09:08)
[2017-01-20] MEDS: FLUoxetine 10 MG Cap PO SCH (09:08)
[2017-01-20] MEDS: Benzonatate 100 MG Cap PO SCH (09:08)
[2017-01-20 09:09] VITALS: BP 119/56
[2017-01-20] MEDS: Acetaminophen 650 MG Tab.ER PO SCH (09:09)
[2017-01-20] MEDS: Ciprofloxacin 500 MG Tab PO SCH (09:10)
[2017-01-20] MEDS: ALPRAZolam 0.25 MG Tab PO SCH (09:11)
--- NOTE | 2017-01-20 10:52 | PN ---
DATE SEEN: 01/20/2017 CHIEF COMPLAINT: Pneumonia. HISTORY OF PRESENT ILLNESS: This is an 81-year-old female, admitted a few days ago with pneumonia. She slept well. She feels better in terms of strength. No cough, wheezing, or fever. She is ready to go home today. PAST MEDICAL HISTORY: She has a long-standing history of anxiety, CHF, hypertension, and CAD. REVIEW OF SYSTEMS: All other systems negative. PHYSICAL EXAMINATION: VITAL SIGNS: Today her blood pressure is normal, pulse is 82, and temperature 97.7. EARS, NOSE, AND THROAT: Negative. HEAD: Normal size. CHEST: Clear. CARDIOVASCULAR: S1, S2 normal. EXTREMITIES: No edema. LABORATORY DATA: Microbiology showed Pseudomonas aeruginosa in the sputum. Blood cultures were negative. IMPRESSION: 1. Community-acquired pneumonia. 2. Congestive heart failure, stable. PLAN: To discharge her home today on Levaquin based on the sensitivity on the culture results. /[id number] ISHMAEL/JOVANI
== END 2017-01-20 11:30 | disposition home health service (06) | DRG 195 ==
LOC: FB.MS 14:26
PROVIDERS: ADMIT Family Medicine; ATTEND Family Medicine
DX: J18.9 Pneumonia, unspecified organism (principal); R53.1 Weakness; I11.0 Hypertensive heart disease with heart failure; I50.9 Heart failure, unspecified; I25.10 Atherosclerotic heart disease of native coronary artery without angina pectoris; G89.29 Other chronic pain; M25.562 Pain in left knee; M25.561 Pain in right knee; E03.9 Hypothyroidism, unspecified; F41.9 Anxiety disorder, unspecified; F32.9 Major depressive disorder, single episode, unspecified; K21.9 Gastro-esophageal reflux disease without esophagitis; I25.2 Old myocardial infarction; Z85.3 Personal history of malignant neoplasm of breast; Z88.6 Allergy status to analgesic agent; Z79.82 Long term (current) use of aspirin; Z88.1 Allergy status to other antibiotic agents; Z91.040 Latex allergy status; Z88.5 Allergy status to narcotic agent; Z88.2 Allergy status to sulfonamides; Z91.018 Allergy to other foods
CPT/HCPCS: 36415; 71020; 80053; 85025; 87040; 87070; 87077; 87186; 87205; 94150; 94640-76; 94664; A9270; A9270-GY; J1956; J2543; J7040; J7050; J7620

== ENCOUNTER 2017-03-02 19:25 | Observation (INO) | payer MEDICARE, BC ==
--- NOTE | 2017-03-02 20:07 | EDM.PDOC ---
ED HPI GENERAL MEDICAL PROBLEM - General Chief Complaint: Neurological Problem Stated Complaint: FALL Time Seen by Provider: 03/02/17 19:28 Source of Information: Reports: Patient, Family History Limitations: Reports: Physical Impairment - History of Present Illness INITIAL COMMENTS - FREE TEXT/NARRATIVE: 81 y.o.w.f. with h/o Pneumonia had a small dinner, walked to the bathroom passed out in the bathroom, not able to get up and ambulate due to feeling week. . Pt was brought to the ed with family by PC. She had chills while here in the ed. . Pt is a poor historian. No N/V/D. BP was 185/87 pulse was 66 Pt stated she was feeling "sick" a few days prior to that event today. She was able to elevate both upper and lower extremities for 5 sec. and had equal muscle strength. However, her tongue was deviated to the right (new. Old?) Onset: Today Onset Date: 03/02/17 Onset Time: 17:00 Duration: Minutes:, Intermittent Location: Reports: Generalized Severity: Moderate Improves with: Reports: Immobilization, Rest Worsens with: Reports: Movement Associated Symptoms: Reports: Fever/Chills - Related Data Allergies Allergy/AdvReac Type Severity Reaction Status Date / Time ibuprofen Allergy Itching Verified 03/02/17 19:45 latex Allergy Itching Verified 03/02/17 19:45 Sulfa (Sulfonamide Allergy Stomach Verified 03/02/17 19:45 Antibiotics) Upset codeine AdvReac Insomnia Verified 03/02/17 19:45 erythromycin base AdvReac Stomach Verified 03/02/17 19:45 Upset Home Meds: Home Meds ALPRAZolam [Xanax] 0.25 tab PO BID 06/25/14 [History] Doxepin [SINEquan] 25 mg PO BEDTIME 06/25/14 [History] FLUoxetine [PROzac] 10 mg PO DAILY 06/25/14 [History] FLUoxetine [PROzac] 20 mg PO DAILY 06/25/14 [History] Furosemide [Lasix] 20 mg PO DAILY 06/25/14 [History] Lisinopril [Prinivil] 5 mg PO BID 06/25/14 [History] Montelukast Sodium 10 mg PO DAILY 06/25/14 [History] Nitroglycerin [Nitrostat] 0.4 mg SL ASDIRECTED PRN 06/25/14 [History] Omeprazole 20 mg PO BIDAC 06/25/14 [History] Levothyroxine 75 mcg PO ACBRK 06/26/14 [History] Cyanocobalamin (Vitamin B-12) [Vitamin B-12] 500 mcg SL WITHDINNER 05/12/15 [ History] Acetaminophen [Pain Reliever] 1,000 mg PO WITHDINNER 03/10/16 [History] Clopidogrel [Plavix] 75 mg PO DAILY 03/10/16 [History] Dicyclomine [Bentyl] 20 mg PO WITHDINNER 03/10/16 [History] Fexofenadine HCl [Aller-Ease] 180 mg PO DAILY 03/10/16 [History] Albuterol [Proair HFA] 2 puff INH Q4HR PRN 03/24/16 [History] Fluticasone Propionate 1 spray JUSTEN BID 03/24/16 [History] Fluticasone/Salmeterol [Advair Diskus 500-50] 1 puff INH BID 03/24/16 [History] Potassium Chloride 20 meq PO BIDMEALS 03/24/16 [History] ALPRAZolam [Xanax] 0.25 mg PO DAILY PRN 07/24/16 [History] Digoxin 125 mcg PO DAILY 07/24/16 [History] Iron,Carbonyl/Ascorbic Acid [Vitron-C Tablet] 1 tab PO DAILY 07/25/16 [History] atorvaSTATin [Lipitor] 40 mg PO BEDTIME 07/25/16 [History] Ondansetron [Zofran ODT] 4 mg PO Q6H PRN #30 tab.dis 07/26/16 [Rx] Aspirin [Halfprin] 81 mg PO DAILY 01/17/17 [History] Calcium Carbonate/Vitamin D3 [Calcium 600 + Vit D Tablet] 1 tab PO WITHDINNER [History] Cholecalciferol (Vitamin D3) [Vitamin D3] 2,000 unit PO DAILY 01/17/17 [History] Vit A/Vit C/Vit E/Selenium Yst [Antioxidant Formula Tablet] 1 tab PO BEDTIME 05/26 [History] Acetaminophen [Tylenol Arthritis Pain] 1,300 mg PO BID 01/18/17 [History] Past Medical History HEENT History: Reports: Cataract Cardiovascular History: Reports: Automatic Implantable Cardioverter Defibrillators, Heart Failure, High Cholesterol, Hypertension, CO, SOB on Exertion, Stents Respiratory History: Reports: Asthma, SOB Gastrointestinal History: Reports: G[employer] History: Reports: Musculoskeletal History: Reports: Other (See Below) Other Musculoskeletal History: chronic pain in both knees Psychiatric History: Reports: Anxiety, Depression Endocrine/Metabolic History: Reports: Hypothyroidism Oncologic (Cancer) History: Reports: Breast Dermatologic History: Reports: Eczema, Other (See Below) Other Dermatologic History: long ago - Infectious Disease History Infectious Disease History: Reports: Influenza, Measles, Mumps - Past Surgical History HEENT Surgical History: Reports: Cataract Surgery, Naso-Sinus Surgery, Other ( See Below) Cardiovascular Surgical History: Reports: Carotid Stents Female Surgical History: Reports: Mastectomy, Other (See Below) Social & Family History - Family History Family Medical History: Noncontributory - Tobacco Use Smoking Status *Q: Never Smoker Second Hand Smoke Exposure: No - Caffeine Use Caffeine Use: Reports: Coffee - Alcohol Use Days Per Week of Alcohol Use: 0 - Recreational Drug Use Recreational Drug Use: No ED ROS GENERAL - Review of Systems Review Of Systems: Unable To Obtain ED EXAM, NEURO - Physical Exam Exam: See Below Exam Limited By: Physical Impairment General Appearance: Alert, Mild Distress, Thin Eye Exam: Bilateral Eye: Normal Inspection Ears: Normal External Exam, Normal Canal Nose: Normal Inspection, Normal Mucosa Throat/Mouth: Normal Lips, Normal Gums, Normal Oropharynx, Normal Voice, No Airway Compromise, Other (dry mucosal membrane) Head Exam: Normocephalic, Facial Tenderness (from a prev injury) Neck: Normal Inspection, Supple Respiratory/Chest: No Respiratory Distress, Normal Breath Sounds, No Accessory Muscle Use Cardiovascular: Normal Peripheral Pulses, Regular Rate, Rhythm, No Edema GI/Abdominal: Normal Bowel Sounds, Soft, Non-Tender, No Organomegaly (Female) Exam: Deferred Rectal (Female) Exam: Deferred Neurological: Alert, Normal Mood/Affect, Oriented x 3, Abnormal Gait, Ataxia, Abnormal Finger to Nose, Difficulty Walking Back Exam: Normal Inspection, Full Range of Motion Extremities: Normal Inspection, Normal Range of Motion, Non-Tender Psychiatric: Normal Affect, Normal Mood Skin Exam: Warm, Dry, Intact, Normal Color, No Rash EKG INTERPRETATION EKG Date: 03/02/17 Time: 21:15 Rhythm: NSR Rate (Beats/Min): 79 [place]: Normal P-Wave: Present QRS: Normal ST-T: Normal QT: Normal Comparison: NA - No Prior EKG Course - Vital Signs Text/Narrative:: . 81 y.o.w.f. with h/o Pneumonia had a small dinner, walked to the bathroom passed out in the bathroom, not able to get up and ambulate due to "feeling week ". . Pt was brought to the ed with family by PC. She had chills while here in the ed. . Pt is a poor historian. No N/V/D. BP was 185/87 pulse was 66 Pt stated she was feeling "sick" a few days prior to that event today. She was able to elevate both upper and lower extremities for 5 sec. and had equal muscle strength. However, her tongue was deviated to the right (new. Old?) PE: unsteady gate, Pos FNT, Tongue deviated to the right, unable to ambulate. Bilat MS 5/5, Labs: WBC nl Na 133, K nl, BUN/Cr ration is elevated UA pos for UTI Imaging: CT head and Neck: NAD, CXR: defibrilator, NAD. MRI of brain and neck were ordered, results are pending Impression: Syncopal episode with collapse (vasovagal) , UTI, Dehydration, H/O Pneumonia, CVA vs TIA (tongue deviation to the right (new, old?), Ataxia, unsteady gate, Hypotension. Tx: NS. [place] Plan: Admit to tele. Last Recorded V/S: Last Vital Signs Temp 36.9 C 03/03/17 00:00 Pulse 78 03/03/17 05:15 Resp 16 03/03/17 05:15 BP 103/39 L 03/03/17 05:15 Pulse Ox 99 03/03/17 05:15 - Orders/Labs/Meds Orders: Active Orders 24 hr Category Date Time Status Patient Status [ADT] Routine ADT 03/02/17 22:24 Active Cardiac Monitoring [RC] CONTINUOUS Care 03/02/17 22:26 Active Oxygen Therapy [RC] 00,08,16 Care 03/02/17 22:24 Active Up With Assistance [RC] ASDIRECTED Care 03/02/17 22:23 Active Vital Signs [RC] 00,04,08,12,16,20 Care 03/02/17 22:24 Active Full Liquid Diet [DIET] Diet 03/02/17 Breakfast Active CXR [Chest 1V Frontal] [CR] Stat Exams 03/02/17 21:48 Taken Cervical Spine wo Cont [CT] Stat Exams 03/02/17 20:02 Taken Head wo Cont [CT] Stat Exams 03/02/17 20:02 Ordered CULTURE BLOOD [BC] Urgent Lab 03/02/17 21:55 Received CULTURE BLOOD [BC] Urgent Lab 03/02/17 22:01 Received Levofloxacin/Dextrose 5%-Water [Levaquin in D5W 750 MG/ Med 03/02/17 22:00 Active 150 ML] 750 mg Premix Bag 1 bag IV Q24H Ondansetron [Zofran] Med 03/02/17 22:23 Active 4 mg IV Q4H PRN Sodium Chloride 0.9% [Saline Flush] Med 03/02/17 22:23 Active 10 ml FLUSH ASDIRECTED PRN Blood Culture x2 Reflex Set [OM.PC] Urgent Oth 03/02/17 21:45 Ordered Peripheral IV Insertion Adult [OM.PC] Routine Oth 03/02/17 22:23 Ordered EKG 12 Lead [EK] Routine Ther 03/02/17 20:21 Ordered Medication Orders Acetaminophen (Tylenol Arthritis Pain) 1,300 mg PO BID AMEE Albuterol (Ventolin Hfa) 0 gm INH Q2H PRN PRN Reason: Shortness of Breath Last Admin: 03/03/17 01:35 Dose: 2 puff Alprazolam (Xanax) 0.25 mg PO BID AMEE Last Admin: 03/03/17 01:36 Dose: 0.25 mg Levofloxacin/Dextrose 750 mg/ (Premix) 150 mls @ 100 mls/hr IV Q24H AMEE Last Admin: 03/02/17 22:52 Dose: 100 mls/hr Sodium Chloride (Normal Saline) 250 mls @ 100 mls/hr IV ASDIRECTED AMEE Last Admin: 03/02/17 22:50 Dose: 100 mls/hr Ondansetron HCl (Zofran) 4 mg IV Q4H PRN PRN Reason: Nausea/Vomiting Last Admin: 03/03/17 01:40 Dose: 4 mg Advair 500/50 Inhaler Own Med* * 1 each INH BID AMEE Last Admin: 03/03/17 01:36 Dose: 1 each Sodium Chloride (Saline Flush) 10 ml FLUSH ASDIRECTED PRN PRN Reason: Keep Vein Open Labs: Laboratory Tests 03/02/17 03/02/17 03/02/17 Range/Units 20:35 20:35 20:35 WBC 11.5 (4.5-12.0) X10-3/uL RBC 3.38 (3.23-5.20) x10(6)uL Hgb 10.8 L (11.5-15.5) g/dL Hct 32.4 (30.0-51.3) % MCV 95.8 (80-96) fL MCH 31.9 (27.7-33.6) pg MCHC 33.3 (32.2-35.4) g/dL RDW 13.3 (11.5-15.5) % Plt Count 247 (125-369) X10(3)uL MPV 7.5 (7.4-10.4) fL Neut % (Auto) 82.0 (46-82) % Lymph % (Auto) 9.8 L (13-37) % [place] % (Auto) 5.4 (4-12) % Eos % (Auto) 2 (1.0-5.0) % Baso % (Auto) 1 (0-2) % Neut # (Auto) 9.5 H (1.6-8.3) # Lymph # (Auto) 1.1 (0.6-5.0) # [place] # (Auto) 0.6 (0.0-1.3) # Eos # (Auto) 0.2 (0.0-0.8) # Baso # (Auto) 0.1 (0.0-0.2) # PT 9.8 (8.7-11.1) INR 0.97 (0.89-1.13) Sodium 133 L (135-145) mmol/L Potassium 4.5 (3.5-5.3) mmol/L Chloride 103 (100-110) mmol/L Carbon Dioxide 20 L (23-29) mmol/L BUN 28 H (8-23) mg/dL Creatinine 1.0 (0.6-1.3) mg/dL Est Cr Clr Drug Dosing 40.38 mL/min Estimated GFR (MDRD) 53 L (>60) BUN/Creatinine Ratio 28.0 H (9-20) Glucose 122 H (80-116) mg/dL Lactic Acid (0.5-2.2) mmol/L Calcium 9.6 (8.6-10.2) mg/dL C-Reactive Protein (0.0-1.0) mg/dL B-Natriuretic Peptide (0-100) pg/mL Urine Color (YELLOW) Urine Appearance (CLEAR) Urine pH (5.0-6.5) Ur Specific [place] (1.010-1.025) Urine Protein (NEGATIVE) mg/dL Urine Glucose (UA) (NEGATIVE) mg/dL Urine Ketones (NEGATIVE) mg/dL Urine Occult Blood (NEGATIVE) Urine Nitrite (NEGATIVE) Urine Bilirubin (NEGATIVE) Urine Urobilinogen (NEGATIVE) mg/dL Ur Leukocyte Esterase (NEGATIVE) Urine RBC (0) Urine WBC (0) Ur Squamous Epith Cells (NS,R,O) Urine Bacteria (NS) 03/02/17 03/02/17 03/02/17 Range/Units 20:35 20:35 20:35 WBC (4.5-12.0) X10-3/uL RBC (3.23-5.20) x10(6)uL Hgb (11.5-15.5) g/dL Hct (30.0-51.3) % MCV (80-96) fL MCH (27.7-33.6) pg MCHC (32.2-35.4) g/dL RDW (11.5-15.5) % Plt Count (125-369) X10(3)uL MPV (7.4-10.4) fL Neut % (Auto) (46-82) % Lymph % (Auto) (13-37) % [place] % (Auto) (4-12) % Eos % (Auto) (1.0-5.0) % Baso % (Auto) (0-2) % Neut # (Auto) (1.6-8.3) # Lymph # (Auto) (0.6-5.0) # [place] # (Auto) (0.0-1.3) # Eos # (Auto) (0.0-0.8) # Baso # (Auto) (0.0-0.2) # PT (8.7-11.1) INR (0.89-1.13) Sodium (135-145) mmol/L Potassium (3.5-5.3) mmol/L Chloride (100-110) mmol/L Carbon Dioxide (23-29) mmol/L BUN (8-23) mg/dL Creatinine (0.6-1.3) mg/dL Est Cr Clr Drug Dosing mL/min Estimated GFR (MDRD) (>60) BUN/Creatinine Ratio (9-20) Glucose (80-116) mg/dL Lactic Acid 2.7 H (0.5-2.2) mmol/L Calcium (8.6-10.2) mg/dL C-Reactive Protein 0.7 (0.0-1.0) mg/dL B-Natriuretic Peptide 132 H (0-100) pg/mL Urine Color (YELLOW) Urine Appearance (CLEAR) Urine pH (5.0-6.5) Ur Specific [place] (1.010-1.025) Urine Protein (NEGATIVE) mg/dL Urine Glucose (UA) (NEGATIVE) mg/dL Urine Ketones (NEGATIVE) mg/dL Urine Occult Blood (NEGATIVE) Urine Nitrite (NEGATIVE) Urine Bilirubin (NEGATIVE) Urine Urobilinogen (NEGATIVE) mg/dL Ur Leukocyte Esterase (NEGATIVE) Urine RBC (0) Urine WBC (0) Ur Squamous Epith Cells (NS,R,O) Urine Bacteria (NS) 03/02/17 Range/Units 20:45 WBC (4.5-12.0) X10-3/uL RBC (3.23-5.20) x10(6)uL Hgb (11.5-15.5) g/dL Hct (30.0-51.3) % MCV (80-96) fL MCH (27.7-33.6) pg MCHC (32.2-35.4) g/dL RDW (11.5-15.5) % Plt Count (125-369) X10(3)uL MPV (7.4-10.4) fL Neut % (Auto) (46-82) % Lymph % (Auto) (13-37) % [place] % (Auto) (4-12) % Eos % (Auto) (1.0-5.0) % Baso % (Auto) (0-2) % Neut # (Auto) (1.6-8.3) # Lymph # (Auto) (0.6-5.0) # [place] # (Auto) (0.0-1.3) # Eos # (Auto) (0.0-0.8) # Baso # (Auto) (0.0-0.2) # PT (8.7-11.1) INR (0.89-1.13) Sodium (135-145) mmol/L Potassium (3.5-5.3) mmol/L Chloride (100-110) mmol/L Carbon Dioxide (23-29) mmol/L BUN (8-23) mg/dL Creatinine (0.6-1.3) mg/dL Est Cr Clr Drug Dosing mL/min Estimated GFR (MDRD) (>60) BUN/Creatinine Ratio (9-20) Glucose (80-116) mg/dL Lactic Acid (0.5-2.2) mmol/L Calcium (8.6-10.2) mg/dL C-Reactive Protein (0.0-1.0) mg/dL B-Natriuretic Peptide (0-100) pg/mL Urine Color Yellow (YELLOW) Urine Appearance Clear (CLEAR) Urine pH 5.0 (5.0-6.5) Ur Specific [place] 1.015 (1.010-1.025) Urine Protein Negative (NEGATIVE) mg/dL Urine Glucose (UA) Normal (NEGATIVE) mg/dL Urine Ketones Negative (NEGATIVE) mg/dL Urine Occult Blood Negative (NEGATIVE) Urine Nitrite Negative (NEGATIVE) Urine Bilirubin Negative (NEGATIVE) Urine Urobilinogen Normal (NEGATIVE) mg/dL Ur Leukocyte Esterase Small H (NEGATIVE) Urine RBC 0-5 (0) Urine WBC 0-5 (0) Ur Squamous Epith Cells Moderate H (NS,R,O) Urine Bacteria Few H (NS) Meds: Medications Generic Name Dose Route Start Last Admin Trade Name Freq PRN Reason Stop Dose Admin Acetaminophen 1,300 mg 03/03/17 01:00 Tylenol Arthritis Pain PO BID AMEE Albuterol 0 gm 03/03/17 01:05 03/03/17 01:35 Ventolin Hfa INH 2 puff Q2H PRN Administration Shortness of Breath Alprazolam 0.25 mg 03/03/17 01:00 03/03/17 01:36 Xanax PO 0.25 mg BID AMEE Administration Levofloxacin/Dextrose 750 mg/ 150 mls @ 100 mls/hr 03/02/17 22:00 03/02/17 22 :52 Premix IV 100 mls/hr Q24H AMEE Administration Sodium Chloride 250 mls @ 100 mls/hr 03/02/17 22:45 03/02/17 22:50 Normal Saline IV 100 mls/hr ASDIRECTED AMEE Administration Ondansetron HCl 4 mg 03/02/17 22:23 03/03/17 01:40 Zofran IV 4 mg Q4H PRN Administration Nausea/Vomiting Advair 500/50 1 each 03/03/17 01:00 03/03/17 01:36 Inhaler Own Med* INH 1 each * BID AMEE Administration Sodium Chloride 10 ml 03/02/17 22:23 Saline Flush FLUSH ASDIRECTED PRN Keep Vein Open Discontinued Medications Generic Name Dose Route Start Last Admin Trade Name Freq PRN Reason Stop Dose Admin Acetaminophen 1,300 mg 03/03/17 01:00 03/03/17 01:35 Tylenol Arthritis Pain PO 03/03/17 01:01 1,300 mg ONETIME ONE Administration Departure - Departure Time of Disposition: 22:29 Disposition: Refer to Observation Condition: Fair Clinical Impression: Syncope and collapse, Dehydration UTI (urinary tract infection) Qualifiers: Urinary tract infection type: acute cystitis - Discharge Information - My Orders Last 24 Hours: My Active Orders 03/02/17 20:02 Cervical Spine wo Cont [CT] Stat Head wo Cont [CT] Stat 03/02/17 20:21 EKG 12 Lead [EK] Routine 03/02/17 21:45 Blood Culture x2 Reflex Set [OM.PC] Urgent 03/02/17 21:48 CXR [Chest 1V Frontal] [CR] Stat 03/02/17 21:55 CULTURE BLOOD [BC] Urgent 03/02/17 22:00 Levofloxacin/Dextrose 5%-Water [Levaquin in D5W 750 MG/150 ML] 750 mg Premix Bag 1 bag IV Q24H 03/02/17 22:01 CULTURE BLOOD [BC] Urgent 03/02/17 22:23 Up With Assistance [RC] ASDIRECTED Ondansetron [Zofran] 4 mg IV Q4H PRN Sodium Chloride 0.9% [Saline Flush] 10 ml FLUSH ASDIRECTED PRN Peripheral IV Insertion Adult [OM.PC] Routine 03/02/17 22:24 Patient Status [ADT] Routine Oxygen Therapy [RC] 00,08,16 Vital Signs [RC] 00,04,08,12,16,20 03/02/17 22:26 Cardiac Monitoring [RC] CONTINUOUS 03/02/17 Breakfast Full Liquid Diet [DIET] - Assessment/Plan Last 24 Hours: My Active Orders 03/02/17 20:02 Cervical Spine wo Cont [CT] Stat Head wo Cont [CT] Stat 03/02/17 20:21 EKG 12 Lead [EK] Routine 03/02/17 21:45 Blood Culture x2 Reflex Set [OM.PC] Urgent 03/02/17 21:48 CXR [Chest 1V Frontal] [CR] Stat 03/02/17 21:55 CULTURE BLOOD [BC] Urgent 03/02/17 22:00 Levofloxacin/Dextrose 5%-Water [Levaquin in D5W 750 MG/150 ML] 750 mg Premix Bag 1 bag IV Q24H 03/02/17 22:01 CULTURE BLOOD [BC] Urgent 03/02/17 22:23 Up With Assistance [RC] ASDIRECTED Ondansetron [Zofran] 4 mg IV Q4H PRN Sodium Chloride 0.9% [Saline Flush] 10 ml FLUSH ASDIRECTED PRN Peripheral IV Insertion Adult [OM.PC] Routine 03/02/17 22:24 Patient Status [ADT] Routine Oxygen Therapy [RC] 00,08,16 Vital Signs [RC] 00,04,08,12,16,20 03/02/17 22:26 Cardiac Monitoring [RC] CONTINUOUS 03/02/17 Breakfast Full Liquid Diet [DIET]
[2017-03-02] MEDS ORDERED: Levofloxacin/Dextrose 5%-Water 750 MG in Premix Bag 1 BAG IV SCH (22:00)
[2017-03-02] MEDS ORDERED: Sodium Chloride 0.9% 10 ML Syringe FLUSH PRN (22:23)
[2017-03-02] MEDS ORDERED: Ondansetron 4 MG/2 ML SDV IV PRN (22:23)
[2017-03-02] MEDS ORDERED: Sodium Chloride 0.9% 250 ML IV SCH (22:45)
[2017-03-03] MEDS ORDERED: Acetaminophen 650 MG Tab.ER PO SCH (01:00)
[2017-03-03] MEDS ORDERED: ADVAIR INH SCH ×2 (01:00→09:00)
[2017-03-03] MEDS ORDERED: Acetaminophen 650 MG Tab.ER PO ONE (01:00)
[2017-03-03] MEDS ORDERED: Albuterol Inhaler **OWN MED INH PRN (01:05)
[2017-03-03] MEDS: ALPRAZolam 0.25 MG Tab PO SCH ×2 (01:36→10:32)
[2017-03-03] MEDS ORDERED: Nitroglycerin 0.4 MG Tab.SL SL PRN (08:26)
[2017-03-03] MEDS ORDERED: Albuterol 8 GM Inhaler *PTOM INH PRN (08:26)
[2017-03-03] MEDS ORDERED: Ondansetron 4 MG Tab.DIS *PTOM PO PRN (08:26)
--- NOTE | 2017-03-03 08:38 | PCM.HP ---
H&P History of Present Illness - General Date of Service: 03/03/17 Admit Problem/Dx: Admission Diagnosis/Problem Admission Diagnosis/Problem Syncope and collapse Source of Information: Patient, Old Records History Limitations: Reports: No Limitations - History of Present Illness Initial Comments - Free Text/Narative: 81-year-old female brought in yesterday after fall. She had had dinner and the later was found on bathroom floor,having possibly fainted. She feels weak and unable to ambulate independently. She lives in an independent living facility. She denies headache fever or chills but has been feeling sick for a few days.No urinary symptoms or cough.She is chronically short short of breath due to history of CHF and history of pneumonia shows of a history of COPD that has been stable. - Related Data Allergies/Adverse Reactions: Allergies Allergy/AdvReac Type Severity Reaction Status Date / Time ibuprofen Allergy Itching Verified 03/02/17 19:45 latex Allergy Itching Verified 03/02/17 19:45 Sulfa (Sulfonamide Allergy Stomach Verified 03/02/17 19:45 Antibiotics) Upset codeine AdvReac Insomnia Verified 03/02/17 19:45 erythromycin base AdvReac Stomach Verified 03/02/17 19:45 Upset Home Medications: Home Meds ALPRAZolam [Xanax] 0.25 tab PO BID 06/25/14 [History] Doxepin [SINEquan] 25 mg PO BEDTIME 06/25/14 [History] FLUoxetine [PROzac] 10 mg PO DAILY 06/25/14 [History] FLUoxetine [PROzac] 20 mg PO DAILY 06/25/14 [History] Furosemide [Lasix] 20 mg PO DAILY 06/25/14 [History] Lisinopril [Prinivil] 5 mg PO BID 06/25/14 [History] Montelukast Sodium 10 mg PO DAILY 06/25/14 [History] Nitroglycerin [Nitrostat] 0.4 mg SL ASDIRECTED PRN 06/25/14 [History] Omeprazole 20 mg PO BIDAC 06/25/14 [History] Levothyroxine 75 mcg PO ACBRK 06/26/14 [History] Cyanocobalamin (Vitamin B-12) [Vitamin B-12] 500 mcg SL WITHDINNER 05/12/15 [ History] Acetaminophen [Pain Reliever] 1,000 mg PO WITHDINNER 03/10/16 [History] Clopidogrel [Plavix] 75 mg PO DAILY 03/10/16 [History] Dicyclomine [Bentyl] 20 mg PO WITHDINNER 03/10/16 [History] Fexofenadine HCl [Aller-Ease] 180 mg PO DAILY 03/10/16 [History] Albuterol [Proair HFA] 2 puff INH Q4HR PRN 03/24/16 [History] Fluticasone Propionate 1 spray JUSTEN BID 03/24/16 [History] Fluticasone/Salmeterol [Advair Diskus 500-50] 1 puff INH BID 03/24/16 [History] Potassium Chloride 20 meq PO BIDMEALS 03/24/16 [History] ALPRAZolam [Xanax] 0.25 mg PO DAILY PRN 07/24/16 [History] Digoxin 125 mcg PO DAILY 07/24/16 [History] Iron,Carbonyl/Ascorbic Acid [Vitron-C Tablet] 1 tab PO DAILY 07/25/16 [History] atorvaSTATin [Lipitor] 40 mg PO BEDTIME 07/25/16 [History] Ondansetron [Zofran ODT] 4 mg PO Q6H PRN #30 tab.dis 07/26/16 [Rx] Aspirin [Halfprin] 81 mg PO DAILY 01/17/17 [History] Calcium Carbonate/Vitamin D3 [Calcium 600 + Vit D Tablet] 1 tab PO WITHDINNER [History] Cholecalciferol (Vitamin D3) [Vitamin D3] 2,000 unit PO DAILY 01/17/17 [History] Vit A/Vit C/Vit E/Selenium Yst [Antioxidant Formula Tablet] 1 tab PO BEDTIME 05/26 [History] Acetaminophen [Tylenol Arthritis Pain] 1,300 mg PO BID 01/18/17 [History] Past Medical History HEENT History: Reports: Cataract Other HEENT History: Experiences sinus headaches. Cardiovascular History: Reports: Automatic Implantable Cardioverter Defibrillators, Heart Failure, High Cholesterol, Hypertension, ID, SOB on Exertion, Stents Respiratory History: Reports: Asthma, SOB Gastrointestinal History: Reports: [employer] History: Reports: Musculoskeletal History: Reports: Other (See Below) Other Musculoskeletal History: chronic pain in both knees Psychiatric History: Reports: Anxiety, Depression Endocrine/Metabolic History: Reports: Hypothyroidism Oncologic (Cancer) History: Reports: Breast Other Oncologic History: Left breast. Dermatologic History: Reports: Eczema, Other (See Below) Other Dermatologic History: long ago - Infectious Disease History Infectious Disease History: Reports: Influenza, Measles, Mumps - Past Surgical History HEENT Surgical History: Reports: Cataract Surgery, Naso-Sinus Surgery, Other ( See Below) Cardiovascular Surgical History: Reports: Carotid Stents Female Surgical History: Reports: Mastectomy, Other (See Below) Social & Family History - Family History Family Medical History: Noncontributory - Tobacco Use Smoking Status *Q: Never Smoker Second Hand Smoke Exposure: No - Caffeine Use Caffeine Use: Reports: Coffee Other Caffeine Use: Drinks decaf coffee and green tea. - Alcohol Use Days Per Week of Alcohol Use: 0 Number of Drinks Per Day: 1 Total Drinks Per Week: 0 - Recreational Drug Use Recreational Drug Use: No H&P Review of Systems - Review of Systems: Review Of Systems: ROS reveals no pertinent complaints other than HPI. Exam - Exam Exam: See Below - Vital Signs Vital Signs: Last Vital Signs Temp 98.5 F 03/03/17 00:00 Pulse 78 03/03/17 05:15 Resp 16 03/03/17 05:15 BP 103/39 L 03/03/17 05:15 Pulse Ox 99 03/03/17 05:15 Weight: 49.759 kg - Exam Quality Assessment: Supplemental Oxygen General: Alert, Oriented, 4 HEENT: PERRLA, Hearing Intact, Mucosa Moist & [place], Nares Patent, Normal Nasal Septum, Posterior Pharynx Clear, Conjunctiva Clear, EOMI, EACs Clear, TMs Clear Neck: Supple, Trachea Midline, 2 Lungs: Clear to Auscultation, Normal Respiratory Effort Cardiovascular: Regular Rate, Regular Rhythm GI/Abdominal Exam: Normal Bowel Sounds, Soft, Non-Tender, No Organomegaly, No Distention, No Abnormal Bruit, No Mass, Pelvis Stable (Female) Exam: Deferred Rectal (Female) Exam: Deferred Back Exam: Normal Inspection, Full Range of Motion, NT Extremities: Normal Inspection, Normal Range of Motion, Non-Tender, No Pedal Edema, Normal Capillary Refill Skin: Warm, Dry, Intact Neurological: Cranial Nerves Intact, Reflexes Equal Bilateral Neuro Extensive - Mental Status: Alert, Oriented x3, Normal Mood/Affect, Normal Cognition Neuro Extensive - Motor, Sensory, Reflexes: CN II-XII Intact, Normal Gait, Normal Reflexes Psychiatric: Alert, Normal Affect, Normal Mood - Patient Data Result Diagrams: 03/02/17 20:35 03/02/17 20:35 EKG INTERPRETATION Rhythm: NSR *Q Meaningful Use (ADM) - VTE *Q VTE Criteria *Q: - Stroke *Q Stroke Criteria *Q: - AMI *Q AMI Criteria *Q: - Problem List (1) CHF (congestive heart failure) SNOMED Code(s): 06548848 ICD Code: I50.9 - HEART FAILURE, UNSPECIFIED Status: Chronic Current Visit: Yes Qualifiers: Congestive heart failure type: unspecified congestive heart failure type Congestive heart failure chronicity: chronic Qualified Code(s): I50.9 - Heart failure, unspecified (2) CAD (coronary artery disease) SNOMED Code(s): 62416522 ICD Code: I25.10 - ATHSCL HEART DISEASE OF [place] CORONARY ARTERY W/O ANG PCTRS Status: Chronic Priority: Low Current Visit: Yes Qualifiers: Coronary Disease-Associated Artery/Lesion type: [place] artery (3) Weakness SNOMED Code(s): 39489223 ICD Code: R53.1 - WEAKNESS Status: Acute Current Visit: Yes (4) Syncope and collapse SNOMED Code(s): 779350337 ICD Code: R55 - SYNCOPE AND COLLAPSE Status: Acute Current Visit: Yes Problem List Initiated/Reviewed/Updated: Yes Orders Last 24hrs: Active Orders 24 hr Category Date Time Status Discontinue Telemetry Monitoring [Cardiac Monitoring Care 03/03/17 08:33 Ordered Discontinue] [RC] Click to Edit RT Post Treatment Assessment [RC] Click to Edit Care 03/03/17 01:06 Active OT Evaluation and Treatment [CONS] Routine Cons 03/03/17 08:26 Ordered PT Evaluation and Treatment [CONS] Routine Cons 03/03/17 08:26 Ordered Ang Neck w wo Cont [MR] Routine Exams 03/03/17 07:00 Ordered Brain w Cont [MR] Routine Exams 03/03/17 07:00 Ordered DIGOXIN [CHEM] Routine Lab 03/03/17 08:31 Ordered TSH ULTRASENSITIVE [CHEM] Routine Lab 03/03/17 08:31 Ordered ALPRAZolam [Xanax] Med 03/03/17 01:00 Active 0.25 mg PO BID Acetaminophen [Tylenol Arthritis Pain] Med 03/03/17 01:00 Pending 1,300 mg PO BID Acetaminophen [Tylenol Arthritis Pain] Med 03/03/17 09:00 Ordered 1,300 mg PO BID Acetaminophen [Tylenol Extra Strength] Med 03/03/17 18:00 Ordered 1,000 mg PO WITHDINNER Albuterol [Ventolin HFA] Med 03/03/17 01:05 Active 0 gm INH Q2H PRN Albuterol [Ventolin HFA] Med 03/03/17 08:26 Ordered 2 puff INH Q4HR PRN Aspirin [Halfprin] Med 03/03/17 09:00 Ordered 81 mg PO DAILY Calcium Carbonate/Vitamin D3 [Calcium 600 + Vit D Med 03/03/17 18:00 Ordered Tablet] 1 tab PO WITHDINNER Cholecalciferol (Vitamin D3) [Vitamin D3] Med 03/03/17 09:00 Ordered 2,000 unit PO DAILY Clopidogrel [Plavix] Med 03/03/17 09:00 Ordered 75 mg PO DAILY Cyanocobalamin (Vitamin B-12) [Vitamin B-12] Med 03/03/17 18:00 Ordered 500 mcg SL WITHDINNER Dicyclomine [Bentyl] Med 03/03/17 18:00 Ordered 20 mg PO WITHDINNER Digoxin [Lanoxin] Med 03/03/17 09:00 Ordered 125 mcg PO DAILY Doxepin [SINEquan] Med 03/03/17 21:00 Ordered 25 mg PO BEDTIME FLUoxetine [PROzac] Med 03/03/17 09:00 Ordered 10 mg PO DAILY FLUoxetine [PROzac] Med 03/03/17 09:00 Ordered 20 mg PO DAILY Fexofenadine [Chantal] Med 03/03/17 09:00 Ordered 180 mg PO DAILY Fluticasone Propionate [Flonase] Med 03/03/17 09:00 Ordered 1 spray JUSTEN BID Fluticasone/Salmeterol [Advair Diskus 500-50] Med 03/03/17 09:00 Ordered 1 puff INH BID Furosemide [Lasix] Med 03/03/17 09:00 Ordered 20 mg PO DAILY Iron,Carbonyl/Ascorbic Acid [Vitron-C Tablet] Med 03/03/17 09:00 Ordered 1 tab PO DAILY Levothyroxine Med 03/04/17 07:30 Ordered 75 mcg PO ACBRK Montelukast [Singulair] Med 03/03/17 09:00 Ordered 10 mg PO DAILY Nitroglycerin [Nitrostat] Med 03/03/17 08:26 Ordered 0.4 mg SL ASDIRECTED PRN Omeprazole Med 03/03/17 17:30 Ordered 20 mg PO BIDAC Ondansetron [Zofran ODT] Med 03/03/17 08:26 Ordered 4 mg PO Q6H PRN Patient's Own Medication [Ptom] Med 03/03/17 01:00 Active 1 each INH BID Potassium Chloride [Klor-Con 10] Med 03/03/17 18:00 Ordered 20 meq PO BIDMEALS Sodium Chloride 0.9% [Normal Saline] 250 ml Med 03/02/17 22:45 Active IV ASDIRECTED Vit A/Vit C/Vit E/Selenium Yst [Antioxidant Formula Med 03/03/17 21:00 Ordered Tablet] 1 tab PO BEDTIME atorvaSTATin [Lipitor] Med 03/03/17 21:00 Ordered 40 mg PO BEDTIME Code Status [Resuscitation Status] Stat Resus Stat 03/02/17 22:36 Ordered Medication Orders Acetaminophen (Tylenol Arthritis Pain) 1,300 mg PO BID [facility] Acetaminophen (Tylenol Extra Strength) 1,000 mg PO WITHDINNER [facility] Acetaminophen (Tylenol Arthritis Pain) 1,300 mg PO BID [facility] Albuterol (Ventolin Hfa) 0 gm INH Q2H PRN PRN Reason: Shortness of Breath Last Admin: 03/03/17 01:35 Dose: 2 puff Albuterol (Ventolin Hfa) gm INH Q4HR PRN PRN Reason: Dyspnea Alprazolam (Xanax) 0.25 mg PO BID [facility] Last Admin: 03/03/17 01:36 Dose: 0.25 mg Aspirin (Halfprin) 81 mg PO DAILY [facility] Atorvastatin Calcium (Lipitor) 40 mg PO BEDTIME [facility] Clopidogrel Bisulfate (Plavix) 75 mg PO DAILY [facility] Digoxin (Lanoxin) 125 mcg PO DAILY [facility] Doxepin HCl (Sinequan) 25 mg PO BEDTIME [facility] Fexofenadine HCl (Chantal) 180 mg PO DAILY [facility] Fluoxetine HCl (Prozac) 20 mg PO DAILY [facility] Fluticasone Propionate (Flonase) gm JUSTEN BID [facility] Furosemide (Lasix) 20 mg PO DAILY [facility] Sodium Chloride (Normal Saline) 250 mls @ 100 mls/hr IV ASDIRECTED [facility] Last Admin: 03/02/17 22:50 Dose: 100 mls/hr Levothyroxine Sodium (Levothyroxine) 75 mcg PO ACBRK [facility] Montelukast Sodium (Singulair) 10 mg PO DAILY [facility] Nitroglycerin (Nitrostat) 0.4 mg SL ASDIRECTED PRN PRN Reason: Chest Pain Non-Formulary Medication (Calcium Carbonate/Vitamin D3 [Calcium 600 + Vit D Tablet]) 1 tab PO WITHDINNER [facility] Non-Formulary Medication (Cholecalciferol (Vitamin D3) [Vitamin D3]) 2,000 unit PO DAILY [facility] Non-Formulary Medication (Cyanocobalamin (Vitamin B-12) [Vitamin B-12]) 500 mcg SL WITHDINNER [facility] Non-Formulary Medication (Dicyclomine [Bentyl]) 20 mg PO WITHDINNER [facility] Non-Formulary Medication (Fluoxetine [Prozac]) 10 mg PO DAILY [facility] Non-Formulary Medication (Fluticasone/Salmeterol [Advair Diskus 500-50]) 1 puff INH BID [facility] Non-Formulary Medication (Iron,Carbonyl/Ascorbic Acid [Vitron-C Tablet]) 1 tab PO DAILY [facility] Non-Formulary Medication (Vit A/Vit C/Vit E/Selenium Yst [Antioxidant Formula Tablet]) 1 tab PO BEDTIME [facility] Omeprazole (Omeprazole) 20 mg PO BIDAC [facility] Ondansetron HCl (Zofran) 4 mg IV Q4H PRN PRN Reason: Nausea/Vomiting Last Admin: 03/03/17 01:40 Dose: 4 mg Ondansetron HCl (Zofran Odt) 4 mg PO Q6H PRN PRN Reason: Nausea Advair 500/50 Inhaler Own Med* * 1 each INH BID [facility] Last Admin: 03/03/17 01:36 Dose: 1 each Potassium Chloride (Klor-Con 10) 20 meq PO BIDMEALS [facility] Sodium Chloride (Saline Flush) 10 ml FLUSH ASDIRECTED PRN PRN Reason: Keep Vein Open Assessment/Plan Comment:: I have personally reviewed the chest x-ray and did not find anything acute. Also reviewed EKG that was negative for any ST changes or arrhythmias. She has been on the monitor overnight with no arrhythmias. She still feels weak and unable to ambulate independently. I've suggested physical and occupational therapy. I would discontinue Levaquin because I did not find any evidence of a unit tract infection a then the urine or in the symptomatology. I'll resume her home medications,keep her on observation care with anticipation of discharge tomorrow or later today.
[2017-03-03] MEDS ORDERED: Digoxin 125 MCG Tab *PTOM PO SCH (09:00)
[2017-03-03] MEDS ORDERED: FLUOXETINE 10 MG PO SCH (09:00)
[2017-03-03] MEDS ORDERED: Clopidogrel 75 MG Tab *PTOM PO SCH (09:00)
[2017-03-03] MEDS ORDERED: Aspirin 81 MG Tab.EC *PTOM PO SCH (09:00)
[2017-03-03] MEDS ORDERED: Fluticasone Propionate Nasal Spray 16 GM Bottle NAS SCH (09:00)
[2017-03-03] MEDS ORDERED: Acetaminophen 650 MG Tab.ER *PTOM PO SCH (09:00)
[2017-03-03] MEDS ORDERED: FEXOFENADINE 180 MG PO SCH (09:00)
[2017-03-03] MEDS ORDERED: FLUoxetine 20 MG Cap *PTOM PO SCH (09:00)
[2017-03-03] MEDS ORDERED: Non-Formulary Medication 1 Each (Cholecalciferol (Vitamin D3) [Vitamin D3] 2,000 UNIT) PO SCH (09:00)
--- NOTE | 2017-03-03 10:48 | CR ---
INDICATION: Chills. CHEST: A single AP upright view of the chest was obtained 03/02/2017 and compared with 01/17/2017 and 07/24/2016, again revealing the heart to be enlarged with pacemaker leads unchanged in position. The infiltration seen in the right lower lobe has resolved without a definite new acute process identified. There remain heavy markings, however, at the left lung base, which may represent residual pneumonia in that area. Findings of lumpectomy and axillary node dissection on the left again noted. Calcifications are noted in the arch of the aorta. IMPRESSION: 1. Resolving or resolved infiltrate at the right lung base with continued heavy markings, although less so, at the left lung base, which may represent residual pneumonia. Findings should be correlated clinically. 2. COPD. 3. ASHD with cardiomegaly and pacemaker leads unchanged in position. 4. Lumpectomy and axillary node dissection on the left. MTDD
[2017-03-03] MEDS ORDERED: Levothyroxine 75 MCG Tab *PTOM PO SCH (11:00)
[2017-03-03] MEDS ORDERED: Potassium Chloride 10 MEQ Tab.ER *PTOM PO SCH (11:00)
[2017-03-03] MEDS ORDERED: Montelukast 10 MG Tab *PTOM PO SCH (11:00)
[2017-03-03] MEDS ORDERED: Omeprazole 20 MG Cap.CR *PTOM PO SCH (11:00)
[2017-03-03] MEDS ORDERED: Furosemide 20 MG Tab *PTOM PO SCH (11:00)
[2017-03-03 15:31] VITALS: BP 116/46
[2017-03-03] MEDS ORDERED: CALCIUM PO SCH (18:00)
[2017-03-03] MEDS ORDERED: CYANOCOBALAMIN 500 MCG SL SCH (18:00)
[2017-03-03] MEDS ORDERED: VIT D PO SCH (18:00)
[2017-03-03] MEDS ORDERED: Acetaminophen 500 MG Tab *PTOM PO SCH (18:00)
[2017-03-03] MEDS ORDERED: DICYCLOMINE 20 MG PO SCH (18:00)
[2017-03-03] MEDS ORDERED: ANTIOXIDANT FORMULA PO SCH (21:00)
[2017-03-03] MEDS ORDERED: atorvaSTATin 40 MG Tab *PTOM PO SCH (21:00)
[2017-03-03] MEDS ORDERED: DOXEPIN 25 MG PO SCH (21:00)
== END 2017-03-03 12:50 | disposition home or self-care (01) ==
LOC: FB.ED 19:25 → FB.MS 22:24
PROVIDERS: ADMIT Emergency Medicine; ATTEND Family Medicine
DX: R55 Syncope and collapse (principal); I11.0 Hypertensive heart disease with heart failure; I50.9 Heart failure, unspecified; I25.10 Atherosclerotic heart disease of native coronary artery without angina pectoris; R53.1 Weakness; J44.9 Chronic obstructive pulmonary disease, unspecified; I25.2 Old myocardial infarction; E78.00 Pure hypercholesterolemia, unspecified; K21.9 Gastro-esophageal reflux disease without esophagitis; G89.29 Other chronic pain; M25.562 Pain in left knee; M25.561 Pain in right knee; F41.9 Anxiety disorder, unspecified; F32.9 Major depressive disorder, single episode, unspecified; E03.9 Hypothyroidism, unspecified; Z87.01 Personal history of pneumonia (recurrent); Z85.3 Personal history of malignant neoplasm of breast; Z88.1 Allergy status to other antibiotic agents; Z88.2 Allergy status to sulfonamides; Z88.5 Allergy status to narcotic agent; Z88.6 Allergy status to analgesic agent; Z91.040 Latex allergy status; Z79.02 Long term (current) use of antithrombotics/antiplatelets; Z79.82 Long term (current) use of aspirin; Z79.51 Long term (current) use of inhaled steroids; Z79.899 Other long term (current) drug therapy; Z95.810 Presence of automatic (implantable) cardiac defibrillator; Z90.10 Acquired absence of unspecified breast and nipple; Z98.890 Other specified postprocedural states
CPT/HCPCS: 36415; 70450; 71010; 72125; 80048; 80162; 81001; 83605; 83880; 84443; 85025; 85610; 86140; 87040; 93005; 96365; 96375; 97165; 99285; A9270; G0378; J1956; J2405; J7050; 99219

== ENCOUNTER 2017-07-23 11:00 | Observation (INO) | payer MEDICARE, BC ==
[2017-07-23] MEDS ORDERED: Sodium Chloride 0.9% 10 ML Syringe FLUSH PRN (14:57)
[2017-07-23] MEDS ORDERED: Morphine 2 MG/ML Syringe IVPUSH PRN (14:57)
[2017-07-23] MEDS ORDERED: Ondansetron 4 MG Tab.DIS PO PRN (14:57)
[2017-07-23] MEDS ORDERED: Nitroglycerin 0.3 MG Tab.SL SL PRN (15:07)
[2017-07-23] MEDS ORDERED: Albuterol 8 GM Inhaler INH PRN (15:37)
[2017-07-23] MEDS ORDERED: ALPRAZolam 0.25 MG Tab PO PRN (15:37)
--- NOTE | 2017-07-23 15:55 | PCM.HP ---
H&P History of Present Illness - General Date of Service: 07/23/17 Admit Problem/Dx: Admission Diagnosis/Problem Admission Diagnosis/Problem Chest pain History Limitations: Reports: No Limitations - History of Present Illness Initial Comments - Free Text/Narative: Patient is an 81-year-old female with an extensive history of coronary artery disease, myocardial infarctions in the remote past requiring stent placement, last stent patient believes in 2013, defibrillator placement for systolic congestive heart failure with ejection fraction less than 25%, who presents with an episode of atypical chest pain this morning. She was curling her hair at 9:30 this morning and getting dressed when she felt a sharp pain develop in the right shoulder radiating to the sternal area and into the left lower chest and abdomen. She also had pain in the left shoulder which then went down into her hand. She took a sublingual nitroglycerin and called her daughter who came and brought her to the emergency department. By the time her daughter arrived the pain had resolved. It lasted less than 15 minutes. She had no accompanying symptoms with it of sweatiness, dizziness, nausea, vomiting or diarrhea and had not had any breakfast this morning. She was not short of breath with the pain. She has had pain like this before when she took her pills about 2 weeks ago and had it "get stuck" in the esophagus. This caused a similar severe pain. She also had a bad coughing spell last night while drinking water which caused a similar severe pain. She's had no further chest pain but continues to have some discomfort in the epigastrium and abdomen. She's had nothing to eat since the episode this morning. Has been under increased stress the last week or 2 with significant anxiety because her has been ill. Past medical history: #1 coronary artery disease status post anterior wall myocardial infarction in 2003 treated with a drug-eluting stent. Cardiac catheter in 2008 unchanged with patent stent. In May 2015 patient had chest pain, was diverted to [facility], and angiogram there showed proximal LAD stenosis with stent placed in left main LAD. Had chronic total occlusion of distal circumflex and nonobstructive right coronary plaques. At that time ejection fraction was 35%. Patient was hospitalized again in January 2016 with NSTEMI at [facility] and was also found to have a new onset arrhythmia with junctional AV disassociation and frequent premature ventricular beats. Patient had a pacemaker and decreased EF ultimately led to defibrillator placement. Echo on 03/30/16 showed trans- esophageal ejection fraction 25%, moderate mitral regurgitation, significant left atrial dilation. [facility] at that time [facility] and has been following with cardiology there. Those records are not available at this time. 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 She is also continued on 81 mg aspirin daily. This change was made for improved stroke prevention given her low ejection fraction, atrial fibrillation history, and age increased risk of stroke. #2 history of breast cancer in the remote past. Treated with lumpectomy, lymph node biopsy, chemotherapy and radiation. She believes this was 2001. #3 asthma, currently well controlled. #4 hypothyroidism. #5 anxiety and depression currently well-controlled. #6 history of cholecystectomy #7 history of irritable bowel syndrome. Social history: The patient lives at [facility] with her . She is a nonsmoker, 1 drink every 2 weeks. 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 [place] Daughter is here with her today. Family history: Noncontributory. - Related Data Allergies/Adverse Reactions: Allergies Allergy/AdvReac Type Severity Reaction Status Date / Time ibuprofen Allergy Itching Verified 07/23/17 11:16 latex Allergy Itching Verified 07/23/17 11:16 Sulfa (Sulfonamide Allergy Stomach Verified 07/23/17 11:16 Antibiotics) Upset codeine AdvReac Insomnia Verified 07/23/17 11:16 erythromycin base AdvReac Stomach Verified 07/23/17 11:16 Upset Home Medications: Home Meds ALPRAZolam [Xanax] 0.25 tab PO BID 06/25/14 [History] Doxepin [SINEquan] 25 mg PO BEDTIME 06/25/14 [History] FLUoxetine [PROzac] 10 mg PO DAILY 06/25/14 [History] FLUoxetine [PROzac] 20 mg PO DAILY 06/25/14 [History] Furosemide [Lasix] 20 mg PO DAILY 06/25/14 [History] Lisinopril [Prinivil] 5 mg PO BID 06/25/14 [History] Montelukast Sodium 10 mg PO DAILY 06/25/14 [History] Nitroglycerin [Nitrostat] 0.4 mg SL ASDIRECTED PRN 06/25/14 [History] Omeprazole 20 mg PO BIDAC 06/25/14 [History] Levothyroxine 75 mcg PO ACBRK 06/26/14 [History] Cyanocobalamin (Vitamin B-12) [Vitamin B-12] 500 mcg SL WITHDINNER 05/12/15 [ History] Acetaminophen [Pain Reliever] 1,000 mg PO WITHDINNER 03/10/16 [History] Dicyclomine [Bentyl] 20 mg PO WITHDINNER 03/10/16 [History] Fexofenadine HCl [Aller-Ease] 180 mg PO DAILY 03/10/16 [History] Fluticasone Propionate 2 spray JUSTEN BID 03/24/16 [History] Fluticasone/Salmeterol [Advair Diskus 500-50] 1 puff INH BID 03/24/16 [History] Potassium Chloride 20 meq PO BIDMEALS 03/24/16 [History] ALPRAZolam [Xanax] 0.25 mg PO DAILY PRN 07/24/16 [History] Digoxin 125 mcg PO DAILY 07/24/16 [History] Iron,Carbonyl/Ascorbic Acid [Vitron-C Tablet] 1 tab PO DAILY 07/25/16 [History] atorvaSTATin [Lipitor] 40 mg PO BEDTIME 07/25/16 [History] Aspirin [Halfprin] 81 mg PO DAILY 01/17/17 [History] Calcium Carbonate/Vitamin D3 [Calcium 600 + Vit D Tablet] 1 tab PO 18,21 [History] Cholecalciferol (Vitamin D3) [Vitamin D3] 2,000 unit PO DAILY 01/17/17 [History] Vit A/Vit C/Vit E/Selenium Yst [Antioxidant Formula Tablet] 1 tab PO BEDTIME 05/26 [History] Acetaminophen [Tylenol Arthritis Pain] 1,300 mg PO BID 01/18/17 [History] Metolazone 2.5 mg PO ASDIRECTED PRN 03/03/17 [History] Albuterol [Ventolin HFA] 2 puff INH Q2H PRN 07/23/17 [History] Apixaban [Eliquis] 2.5 mg PO BID 07/23/17 [History] Multivitamin [Multi-Vitamin Daily] 1 tab PO WITHDINNER 07/23/17 [History] Past Medical History HEENT History: Reports: Cataract Other HEENT History: Experiences sinus headaches. Cardiovascular History: Reports: Automatic Implantable Cardioverter Defibrillators, Heart Failure, High Cholesterol, Hypertension, MS, SOB on Exertion, Stents Other Cardiovascular History: 3 stents Respiratory History: Reports: Asthma, SOB Gastrointestinal History: Reports: GERD, Hiatal Hernia INSPECTOR History: Reports: Musculoskeletal History: Reports: Fracture, Other (See Below) Other Musculoskeletal History: chronic pain in both knees; fx of below right hip Psychiatric History: Reports: Anxiety, Depression Endocrine/Metabolic History: Reports: Hypothyroidism Oncologic (Cancer) History: Reports: Breast Other Oncologic History: Left breast, lumpectomy and node removal Dermatologic History: Reports: Eczema, Other (See Below) Other Dermatologic History: long ago; itching rash - Infectious Disease History Infectious Disease History: Reports: Chicken Pox, Measles, Mumps - Past Surgical History HEENT Surgical History: Reports: Cataract Surgery, Naso-Sinus Surgery, Other ( See Below) Cardiovascular Surgical History: Reports: Carotid Stents Respiratory Surgical History: Reports: None GI Surgical History: Reports: Appendectomy, Cholecystectomy Female Surgical History: Reports: Hysterectomy, Mastectomy, Other (See Below) Social & Family History - Family History Family Medical History: Noncontributory - Tobacco Use Smoking Status *Q: Never Smoker Second Hand Smoke Exposure: No - Caffeine Use Caffeine Use: Reports: Tea Other Caffeine Use: Drinks decaf coffee and green tea. - Alcohol Use Days Per Week of Alcohol Use: 0 Number of Drinks Per Day: 1 Total Drinks Per Week: 0 - Recreational Drug Use Recreational Drug Use: No H&P Review of Systems - Review of Systems: Review Of Systems: See Below General: Reports: No Symptoms HEENT: Reports: No Symptoms Pulmonary: Reports: Other (Occasional cough with eating or drinking although it sounds more like feeling a sensation of pills getting stuck. She doesn't eat certain foods because they tend to get stuck.) Cardiovascular: Reports: No Symptoms (Currently symptom free. Otherwise as above.) Gastrointestinal: Reports: No Symptoms Genitourinary: Reports: No Symptoms Musculoskeletal: Reports: No Symptoms Skin: Reports: No Symptoms Psychiatric: Reports: No Symptoms Exam - Exam Exam: See Below - Vital Signs Vital Signs: Last Vital Signs Temp 36.4 C 07/23/17 11:07 Pulse 82 07/23/17 11:07 Resp 18 07/23/17 11:07 BP 140/75 07/23/17 11:07 Pulse Ox 100 07/23/17 11:07 Weight: 50.802 kg - Exam General: Alert, Oriented, Cooperative HEENT: PERRLA, Conjunctiva Clear, Mucosa Moist & Ballplay, Posterior Pharynx Clear Neck: Supple, Trachea Midline, Full Range of Motion Lungs: Clear to Auscultation, Normal Respiratory Effort Cardiovascular: Regular Rate, Regular Rhythm, Normal S1, Normal S2 GI/Abdominal Exam: Normal Bowel Sounds, Soft, No Organomegaly, No Distention, No Mass, Tender (Abdomen is tender in the epigastrium, the left lower quadrant, and periumbilically. Normal bowel sounds.) (Female) Exam: Deferred Rectal (Female) Exam: Deferred Back Exam: Normal Inspection Extremities: Normal Inspection, No Pedal Edema - Patient Data Result Diagrams: 07/23/17 11:55 07/23/17 11:55 Imaging Impressions Last 24 hrs: Chest x-ray to my reading shows no signs of fluid overload. No pulmonary congestion, no effusions. EKG INTERPRETATION EKG Date: 07/23/17 (NSR with rate 70s, no ST elevation or depression, no T wave inversion, no change from prior 05/12/15.) Rhythm: NSR *Q Meaningful Use (ADM) - VTE *Q VTE Criteria *Q: - Stroke *Q Stroke Criteria *Q: - AMI *Q AMI Criteria *Q: - Problem List (1) Atypical chest pain SNOMED Code(s): 435991635 ICD Code: R07.89 - OTHER CHEST PAIN Status: Acute Current Visit: No Problem Details: Initial troponin was 0.317, follow-up troponin 0.312. We will do another troponin in 8 hours and again in the morning. If this trend up significantly, could consider transferring the patient tomorrow for cardiac catheterization. As long as she remains stable clinically, we could also consider this as an outpatient. Continue Eliquis and aspirin. Repeat echo in a.m. Oxygen saturations drop below 90%, nitroglycerin and morphine if pain recurs. (2) Systolic congestive heart failure SNOMED Code(s): 287581061 ICD Code: I50.20 - UNSPECIFIED SYSTOLIC (CONGESTIVE) HEART FAILURE Status: Acute Current Visit: Yes Problem Details: Currently appears stable but ejection fraction at last check was 25% which was over a year ago. We'll repeat echocardiogram at this time. Continue home medications. (3) Atrial fibrillation with controlled ventricular rate SNOMED Code(s): 95730224 ICD Code: I48.91 - UNSPECIFIED ATRIAL FIBRILLATION Status: Acute Current Visit: Yes Problem Details: I spoke with cardiology at [facility] regarding the patient's current medications. Dr. Boyce did not feel there would be any advantage to restarting Plavix as an antiplatelet agent. He felt Eliquis for stroke prevention gives enough blood thinner benefit that the Plavix would only increase her risk of bleeding at this point as compared to eliquis and aspirin therapy. I ran the patient's stroke risk through [employer] and her risk based on her current factors is 10% per year without anticoagulation, 5.6% with aspirin and plavix alone, and 2.6% with eliquis. Unable to calculate benefit with eliquis and aspirin as not an option. (4) Anxiety with depression SNOMED Code(s): 294487191 ICD Code: F41.8 - OTHER SPECIFIED ANXIETY DISORDERS Status: Acute Current Visit: Yes Problem Details: Continue home medications. (5) Asthma SNOMED Code(s): 986556400 ICD Code: J45.909 - UNSPECIFIED ASTHMA, UNCOMPLICATED Status: Acute Current Visit: Yes Problem Details: Continue home medications. (6) Hypothyroidism SNOMED Code(s): 35071906 ICD Code: E03.9 - HYPOTHYROIDISM, UNSPECIFIED Status: Acute Current Visit : Yes Problem Details: Continue home medications. (7) CKD (chronic kidney disease), stage III SNOMED Code(s): 058131172 ICD Code: N18.3 - CHRONIC KIDNEY DISEASE, STAGE 3 (MODERATE) Status: Acute Current Visit: Yes Problem Details: Monitor renal function. Avoid renal toxic drugs. Problem List Initiated/Reviewed/Updated: Yes Orders Last 24hrs: Active Orders 24 hr Category Date Time Status Cardiac Monitoring [RC] CONTINUOUS Care 07/23/17 14:59 Active Intake and Output [RC] QSHIFT Care 07/23/17 14:58 Active Oxygen Therapy [RC] PRN Care 07/23/17 14:57 Active Up With Assistance [RC] ASDIRECTED Care 07/23/17 14:57 Active VTE/DVT Education [RC] Per Unit Routine Care 07/23/17 14:57 Active Vital Signs [RC] Q4H Care 07/23/17 14:57 Active 2 Gram Sodium Diet [DIET] Diet 07/23/17 Lunch Ordered BASIC METABOLIC PANEL,BMP [CHEM] AM Lab 07/24/17 05:11 Ordered CBC WITH AUTO DIFF [HEME] AM Lab 07/24/17 05:11 Ordered TROPONIN I [CHEM] Q8H Lab 07/23/17 20:00 Ordered TROPONIN I [CHEM] Q8H Lab 07/24/17 04:00 Ordered ALPRAZolam [Xanax] Med 07/23/17 15:37 Ordered 0.25 mg PO DAILY PRN ALPRAZolam [Xanax] Med 07/23/17 21:00 Ordered 0.25 tab PO BID Acetaminophen [Tylenol] Med 07/23/17 14:57 Active 650 mg PO Q4H PRN Albuterol [Ventolin HFA] Med 07/23/17 15:37 Ordered 2 puff INH Q2H PRN Apixaban [Eliquis] Med 07/23/17 21:00 Ordered 2.5 mg PO BID Aspirin [Halfprin] Med 07/24/17 09:00 Ordered 81 mg PO DAILY Dicyclomine [Bentyl] Med 07/23/17 18:00 Ordered 20 mg PO WITHDINNER Digoxin [Lanoxin] Med 07/24/17 09:00 Ordered 125 mcg PO DAILY Doxepin [SINEquan] Med 07/23/17 21:00 Ordered 25 mg PO BEDTIME FLUoxetine [PROzac] Med 07/24/17 09:00 Ordered 10 mg PO DAILY FLUoxetine [PROzac] Med 07/24/17 09:00 Ordered 20 mg PO DAILY Fexofenadine [Chantal] Med 07/24/17 09:00 Ordered 180 mg PO DAILY Fluticasone Propionate [Fluticasone Propionate] Med 07/23/17 21:00 Ordered 2 spray JUSTEN BID Fluticasone/Salmeterol [Advair Diskus 500-50] Med 07/23/17 21:00 Ordered 1 puff INH BID Furosemide [Lasix] Med 07/24/17 09:00 Ordered 20 mg PO DAILY Levothyroxine Med 07/24/17 07:30 Ordered 75 mcg PO ACBRK Lisinopril [Prinivil] Med 07/23/17 21:00 Ordered 5 mg PO BID Montelukast [Singulair] Med 07/24/17 09:00 Ordered 10 mg PO DAILY Morphine Med 07/23/17 14:57 Active 2 mg IVPUSH Q2H PRN Nitroglycerin [Nitrostat] Med 07/23/17 15:07 Active 0.3 mg SL Q5M PRN Omeprazole [Omeprazole] Med 07/23/17 17:30 Ordered 20 mg PO BIDAC Ondansetron [Zofran ODT] Med 07/23/17 14:57 Active 4 mg PO Q4H PRN Potassium Chloride [Klor-Con 10] Med 07/23/17 18:00 Ordered 20 meq PO BIDMEALS Sodium Chloride 0.9% [Saline Flush] Med 07/23/17 14:57 Active 10 ml FLUSH ASDIRECTED PRN atorvaSTATin [Lipitor] Med 07/23/17 21:00 Ordered 40 mg PO BEDTIME Peripheral IV Insertion Adult [OM.PC] Routine Oth 07/23/17 14:57 Ordered Sequential Compression Device [OM.PC] Per Unit Routine Oth 07/23/17 14:59 Ordered Resuscitation Status Routine Resus Stat 07/23/17 14:57 Ordered Medication Orders Acetaminophen (Tylenol) 650 mg PO Q4H PRN PRN Reason: Pain (Mild 1-3)/fever Albuterol (Ventolin Hfa) gm INH Q2H PRN PRN Reason: Shortness of Breath Alprazolam (Xanax) 0.25 mg PO DAILY PRN PRN Reason: Anxiety Alprazolam (Xanax) mg PO BID [facility] Apixaban (Eliquis) 2.5 mg PO BID [facility] Aspirin (Halfprin) 81 mg PO DAILY [facility] Atorvastatin Calcium (Lipitor) 40 mg PO BEDTIME [facility] Digoxin (Lanoxin) 125 mcg PO DAILY [facility] Doxepin HCl (Sinequan) 25 mg PO BEDTIME [facility] Fexofenadine HCl (Chantal) 180 mg PO DAILY [facility] Fluoxetine HCl (Prozac) 20 mg PO DAILY [facility] Furosemide (Lasix) 20 mg PO DAILY [facility] Levothyroxine Sodium (Levothyroxine) 75 mcg PO ACBRK [facility] Lisinopril (Prinivil) 5 mg PO BID [facility] Montelukast Sodium (Singulair) 10 mg PO DAILY [facility] Morphine Sulfate (Morphine) 2 mg IVPUSH Q2H PRN PRN Reason: Pain (severe 7-10) Nitroglycerin (Nitrostat) 0.3 mg SL Q5M PRN PRN Reason: Chest Pain Non-Formulary Medication (Dicyclomine [Bentyl]) 20 mg PO WITHDINNER [facility]EE Non-Formulary Medication (Fluoxetine [Prozac]) 10 mg PO DAILY [facility] Non-Formulary Medication (Fluticasone Propionate [Fluticasone Propionate]) 2 spray JUSTEN BID [facility]EE Non-Formulary Medication (Fluticasone/Salmeterol [Advair Diskus 500-50]) 1 puff INH BID [facility]EE Non-Formulary Medication (Omeprazole [Omeprazole]) 20 mg PO BIDAC [facility]EE Ondansetron HCl (Zofran Odt) 4 mg PO Q4H PRN PRN Reason: nausea, able to take PO Potassium Chloride (Klor-Con 10) 20 meq PO BIDMEALS [facility]EE Sodium Chloride (Saline Flush) 10 ml FLUSH ASDIRECTED PRN PRN Reason: Keep Vein Open Assessment/Plan Comment:: CODE STATUS discussed with the patient and her daughter. Patient is a DNR/DNI. Would not want heroics to try to bring her back to life if she were to pass away. Would not want to be put on a breathing machine if we thought her breathing was so bad that she might if we didn't intervene. She would want to be allowed to pass peacefully. She is aware that the defibrillator will defibrillate her heart without CPR.
[2017-07-23] MEDS ORDERED: Aspirin 81 MG Tab.Chew PO STA (17:04)
[2017-07-23] MEDS: Potassium Chloride 10 MEQ Tab.ER ** OWN MED PO SCH (17:56)
[2017-07-23] MEDS: OMEPRAZOLE 20 MG PO SCH (17:56)
[2017-07-23] MEDS ORDERED: DICYCLOMINE 20 MG PO SCH (18:00)
[2017-07-23] MEDS ORDERED: ALBUTEROL INH PRN (18:10)
[2017-07-23] MEDS ORDERED: FLUTICASONE PROPIONATE NAS SCH (21:00)
[2017-07-23] MEDS ORDERED: ATORVASTATIN 40 MG PO SCH (21:00)
[2017-07-23] MEDS ORDERED: DOXEPIN 25 MG PO SCH (21:00)
[2017-07-23] MEDS: APIXABAN 2.5 MG PO SCH (22:07)
[2017-07-23] MEDS: SALMETEROL INH SCH (22:09)
[2017-07-23] MEDS: FLUTICASONE INH SCH (22:09)
[2017-07-23] MEDS: LISINOPRIL 5 MG PO SCH (22:09)
[2017-07-23] MEDS: Acetaminophen 325 MG Tab PO PRN (22:10)
[2017-07-23] MEDS: ALPRAZolam 0.25 MG Tab PO SCH (22:10)
[2017-07-23] MEDS ORDERED: Sodium Chloride 0.65% Nasal Spray 45 ML Bottle NAS PRN (22:19)
[2017-07-24] MEDS ORDERED: Aluminum Hydroxide/Magnesium Hydroxide Susp 30 ML Cup PO PRN (01:19)
[2017-07-24] MEDS: Acetaminophen 325 MG Tab PO PRN (04:20)
[2017-07-24] MEDS ORDERED: Levothyroxine 75 MCG Tab *PTOM PO SCH (07:30)
[2017-07-24] MEDS: OMEPRAZOLE 20 MG PO SCH (08:40)
[2017-07-24] MEDS ORDERED: Furosemide 20 MG Tab ** OWN MED PO SCH (09:00)
[2017-07-24] MEDS ORDERED: Aspirin 81 MG Tab.EC *PTOM PO SCH (09:00)
[2017-07-24] MEDS ORDERED: FLUoxetine 10 MG Cap *PTOM PO SCH (09:00)
[2017-07-24] MEDS ORDERED: Digoxin 125 MCG Tab *PTOM PO SCH (09:00)
[2017-07-24] MEDS ORDERED: FEXOFENADINE 180 MG PO SCH (09:00)
[2017-07-24] MEDS ORDERED: Montelukast 10 MG Tab *PTOM PO SCH (09:00)
[2017-07-24] MEDS ORDERED: FLUoxetine 20 MG Cap *PTOM PO SCH (09:00)
--- NOTE | 2017-07-24 09:10 | PCM.DCSUM1 ---
Discharge Summary - Hospital Course Free Text/Narrative:: Date of admission: 07/23/2017 Date of discharge: 07/24/2017 Admission diagnosis: Atypical chest pain. Rule out myocardial infarction. Discharge diagnosis: Atypical chest pain. No evidence of acute myocardial infarction. Patient has chronic troponin leak per registered physical therapist and records at [facility]. Consults: None. Did visit with cardiology at [place] regarding whether or not the patient would benefit more from being on Plavix versus Eliquis and Dr. Padilla's opinion was Eliquis was a better choice. Discussed the patient's care with Dr. Bailey Guardado at the [facility] who is the patient's registered physical therapist and she recommended no new heart catheterization at this time, instead routine care. Procedures: None History of present illness: Patient is an 81-year-old female with extensive known coronary disease and heart history with pacemaker/defibrillator in place who presented with atypical chest pain lasting less than 15 minutes. Troponin 2 hours after the onset of pain was 0.317. Subsequent troponins were 0.312, 0.353, 0.343. Patient had no further pain. She was admitted for monitoring and did well throughout hospitalization. - Discharge Data Discharge Date: 07/24/17 Discharge Disposition: Home, Self-Care 01 Condition: Good - Discharge Diagnosis/Problem(s) (1) Atypical chest pain SNOMED Code(s): 397642404 ICD Code: R07.89 - OTHER CHEST PAIN Status: Acute Current Visit: No Problem Details: Troponin peaked at 0.353. I visited with the patient's registered physical therapist from the [facility], Dr. Bailey Guardado, who in reviewing the patient's previous numbers at their facility said this was probably baseline numbers for her. She felt the patient could continue to follow -up per previously agreed schedule but she and her nurse will be reaching out to the patient later this week to make sure things are still going well. The patient can continue her same medications and see her primary care provider on Monday for follow-up. (2) Systolic congestive heart failure SNOMED Code(s): 968723856 ICD Code: I50.20 - UNSPECIFIED SYSTOLIC (CONGESTIVE) HEART FAILURE Status: Acute Current Visit: Yes Problem Details: Echocardiogram not available till tomorrow. This could be scheduled as an outpatient. Follow-up with primary care provider on Monday. (3) Atrial fibrillation with controlled ventricular rate SNOMED Code(s): 97999737 ICD Code: I48.91 - UNSPECIFIED ATRIAL FIBRILLATION Status: Acute Current Visit: Yes Problem Details: Continue on current medications. (4) Anxiety with depression SNOMED Code(s): 702081984 ICD Code: F41.8 - OTHER SPECIFIED ANXIETY DISORDERS Status: Acute Current Visit: Yes Problem Details: Continue home medications. (5) Asthma SNOMED Code(s): 765875129 ICD Code: J45.909 - UNSPECIFIED ASTHMA, UNCOMPLICATED Status: Acute Current Visit: Yes Problem Details: Continue home medications. (6) Hypothyroidism SNOMED Code(s): 92464514 ICD Code: E03.9 - HYPOTHYROIDISM, UNSPECIFIED Status: Acute Current Visit : Yes Problem Details: Continue home medications. (7) CKD (chronic kidney disease), stage III SNOMED Code(s): 048088644 ICD Code: N18.3 - CHRONIC KIDNEY DISEASE, STAGE 3 (MODERATE) Status: Acute Current Visit: Yes Problem Details: Monitor renal function. Avoid renal toxic drugs. (8) Leukocytosis SNOMED Code(s): 909156631 ICD Code: D72.829 - ELEVATED WHITE BLOOD CELL COUNT, UNSPECIFIED Status: Acute Current Visit: Yes Problem Details: Unclear etiology, may be stress response. Follow-up with primary care provider on Monday. If any symptoms of infection develop, recheck sooner. - Patient Instructions Diet: Heart Healthy Diet, Low Sodium Activity: As Tolerated - Discharge Plan Home Medications: Home Meds ALPRAZolam [Xanax] 0.25 tab PO BID 06/25/14 [History] Doxepin [SINEquan] 25 mg PO BEDTIME 06/25/14 [History] FLUoxetine [PROzac] 10 mg PO DAILY 06/25/14 [History] FLUoxetine [PROzac] 20 mg PO DAILY 06/25/14 [History] Furosemide [Lasix] 20 mg PO DAILY 06/25/14 [History] Lisinopril [Prinivil] 5 mg PO BID 06/25/14 [History] Montelukast Sodium 10 mg PO DAILY 06/25/14 [History] Nitroglycerin [Nitrostat] 0.4 mg SL ASDIRECTED PRN 06/25/14 [History] Omeprazole 20 mg PO BIDAC 06/25/14 [History] Levothyroxine 75 mcg PO ACBRK 06/26/14 [History] Cyanocobalamin (Vitamin B-12) [Vitamin B-12] 500 mcg SL WITHDINNER 05/12/15 [ History] Acetaminophen [Pain Reliever] 1,000 mg PO WITHDINNER 03/10/16 [History] Dicyclomine [Bentyl] 20 mg PO WITHDINNER 03/10/16 [History] Fexofenadine HCl [Aller-Ease] 180 mg PO DAILY 03/10/16 [History] Fluticasone Propionate 2 spray JUSTEN BID 03/24/16 [History] Fluticasone/Salmeterol [Advair Diskus 500-50] 1 puff INH BID 03/24/16 [History] Potassium Chloride 20 meq PO BIDMEALS 03/24/16 [History] ALPRAZolam [Xanax] 0.25 mg PO DAILY PRN 07/24/16 [History] Iron,Carbonyl/Ascorbic Acid [Vitron-C Tablet] 1 tab PO DAILY 07/25/16 [History] atorvaSTATin [Lipitor] 40 mg PO BEDTIME 07/25/16 [History] Aspirin [Halfprin] 81 mg PO DAILY 01/17/17 [History] Calcium Carbonate/Vitamin D3 [Calcium 600 + Vit D Tablet] 1 tab PO , [History] Cholecalciferol (Vitamin D3) [Vitamin D3] 2,000 unit PO DAILY 01/17/17 [History] Vit A/Vit C/Vit E/Selenium Yst [Antioxidant Formula Tablet] 1 tab PO BEDTIME 05/26 [History] Acetaminophen [Tylenol Arthritis Pain] 1,300 mg PO BID 01/18/17 [History] Metolazone 2.5 mg PO ASDIRECTED PRN 03/03/17 [History] Albuterol [Ventolin HFA] 2 puff INH Q2H PRN 07/23/17 [History] Apixaban [Eliquis] 2.5 mg PO BID 07/23/17 [History] Multivitamin [Multi-Vitamin Daily] 1 tab PO WITHDINNER 07/23/17 [History] Digoxin [Digox] 125 mcg PO DAILY 07/24/17 [History] Patient Handouts: Sequential Compression Device, Deep Vein Thrombosis Forms: ED Department Discharge Referrals: Brandon Ramsey MD [Primary Care Provider] - - Discharge Summary/Plan Comment DC Time >30 min.: Yes - General Info Date of Service: 07/24/17 Subjective Update: Patient did not sleep well because of being in the hospital but otherwise is feeling well this morning. No chest pain. No shortness of breath. Did have indigestion after eating spaghetti for supper which resolved with Mylanta. Feels ready to go home. - Patient Data Vitals - Most Recent: Last Vital Signs Temp 36.5 C 07/24/17 04:00 Pulse 76 07/24/17 04:00 Resp 18 07/24/17 04:00 BP 107/50 L 07/24/17 04:00 Pulse Ox 99 07/24/17 07:00 Weight - Most Recent: 45.019 kg I&O - Last 24 hours: Intake & Output 07/23/17 07/24/17 07/24/17 22:59 06:59 14:59 Intake Total 120 Output Total 1225 100 Balance -1105 -100 Lab Results - Last 24 hrs: Laboratory Results - last 24 hr 07/23/17 07/24/17 07/24/17 Range/Units 20:05 04:00 04:00 WBC 13.6 H (4.5-12.0) X10-3/uL RBC 3.41 (3.23-5.20) x10(6)uL Hgb 10.4 L (11.5-15.5) g/dL Hct 32.0 (30.0-51.3) % MCV 93.9 (80-96) fL MCH 30.4 (27.7-33.6) pg MCHC 32.4 (32.2-35.4) g/dL RDW 13.3 (11.5-15.5) % Plt Count 264 (125-369) X10(3)uL MPV 7.3 L (7.4-10.4) fL Add Manual Diff Yes Neutrophils % (Manual) 78 (46-82) % Band Neutrophils % 1 (0-6) % Lymphocytes % (Manual) 18 (13-37) % Monocytes % (Manual) 2 L (4-12) % Eosinophils % (Manual) 1 (0-5) % Sodium (135-145) mmol/L Potassium (3.5-5.3) mmol/L Chloride (100-110) mmol/L Carbon Dioxide (21-32) mmol/L BUN (7-18) mg/dL Creatinine (0.55-1.02) mg/dL Est Cr Clr Drug Dosing mL/min Estimated GFR (MDRD) (>60) BUN/Creatinine Ratio (9-20) Glucose (80-116) mg/dL Calcium (8.6-10.2) mg/dL Troponin I 0.353 H* 0.343 H* (<0.017-0.056) ng/mL 07/24/17 Range/Units 04:00 WBC (4.5-12.0) X10-3/uL RBC (3.23-5.20) x10(6)uL Hgb (11.5-15.5) g/dL Hct (30.0-51.3) % MCV (80-96) fL MCH (27.7-33.6) pg MCHC (32.2-35.4) g/dL RDW (11.5-15.5) % Plt Count (125-369) X10(3)uL MPV (7.4-10.4) fL Add Manual Diff Neutrophils % (Manual) (46-82) % Band Neutrophils % (0-6) % Lymphocytes % (Manual) (13-37) % Monocytes % (Manual) (4-12) % Eosinophils % (Manual) (0-5) % Sodium 136 (135-145) mmol/L Potassium 4.4 (3.5-5.3) mmol/L Chloride 101 (100-110) mmol/L Carbon Dioxide 28 (21-32) mmol/L BUN 25 H (7-18) mg/dL Creatinine 1.1 H (0.55-1.02) mg/dL Est Cr Clr Drug Dosing 28.99 mL/min Estimated GFR (MDRD) 48 L (>60) BUN/Creatinine Ratio 22.7 H (9-20) Glucose 120 H (80-116) mg/dL Calcium 9.4 (8.6-10.2) mg/dL Troponin I (<0.017-0.056) ng/mL Med Orders - Current: Current Medications Acetaminophen (Tylenol) 650 mg PO Q4H PRN PRN Reason: Pain (Mild 1-3)/fever Last Admin: 07/24/17 04:20 Dose: 650 mg Al Hydroxide/Mg Hydroxide (Mag-Al Susp) 30 ml PO Q4H PRN PRN Reason: Heartburn Last Admin: 07/24/17 01:34 Dose: 30 ml Albuterol (Ventolin Hfa) 0 gm INH Q2H PRN PRN Reason: Shortness of Breath Last Admin: 07/23/17 18:31 Dose: 2 puff Alprazolam (Xanax) 0.25 mg PO DAILY PRN PRN Reason: Anxiety Alprazolam (Xanax) 0.25 mg PO BID [facility] Last Admin: 07/23/17 22:10 Dose: 0.25 mg Apixaban (Eliquis) 2.5 mg PO BID [facility] Last Admin: 07/23/17 22:07 Dose: 2.5 mg Aspirin (Halfprin) 81 mg PO DAILY [facility] Atorvastatin Calcium (Lipitor) 40 mg PO BEDTIME [facility] Last Admin: 07/23/17 22:09 Dose: 40 mg Digoxin (Lanoxin) 125 mcg PO DAILY [facility] Doxepin HCl (Sinequan) 25 mg PO BEDTIME [facility] Last Admin: 07/23/17 22:10 Dose: 25 mg Fexofenadine HCl (Chantal) 180 mg PO DAILY [facility] Fluoxetine HCl (Prozac) 20 mg PO DAILY [facility] Fluoxetine HCl (Prozac) 10 mg PO DAILY [facility] Furosemide (Lasix) 20 mg PO DAILY [facility] Levothyroxine Sodium (Levothyroxine) 75 mcg PO ACBRK [facility] Last Admin: 07/24/17 08:40 Dose: 75 mcg Lisinopril (Prinivil) 5 mg PO BID [facility] Last Admin: 07/23/17 22:09 Dose: 5 mg Montelukast Sodium (Singulair) 10 mg PO DAILY [facility] Morphine Sulfate (Morphine) 2 mg IVPUSH Q2H PRN PRN Reason: Pain (severe 7-10) Nitroglycerin (Nitrostat) 0.3 mg SL Q5M PRN PRN Reason: Chest Pain Dicyclomine [Bentyl] (20mg Own Med ) 20 mg PO WITHDINNER [facility] Last Admin: 07/23/17 17:57 Dose: 20 mg Non-Formulary Medication (Fluticasone Propionate [Fluticasone Propionate]) 2 spray JUSTEN BID [facility] Fluticasone/Salmeterol [Advair Diskus 500-50] Inhaler Own Med * * 1 puff INH BID [facility] Last Admin: 07/23/17 22:09 Dose: Not Given Omeprazole 20mg (Own Med ) 20 mg PO BIDAC [facility] Last Admin: 07/24/17 08:40 Dose: 20 mg Ondansetron HCl (Zofran Odt) 4 mg PO Q4H PRN PRN Reason: nausea, able to take PO Potassium Chloride (Klor-Con 10) 20 meq PO BIDMEALS [facility] Last Admin: 07/23/17 17:56 Dose: 20 meq Sodium Chloride (Saline Flush) 10 ml FLUSH ASDIRECTED PRN PRN Reason: Keep Vein Open Sodium Chloride (Clare Nasal [place]) 0 ml JUSTEN Q2H PRN PRN Reason: Dryness Last Admin: 07/24/17 00:56 Dose: 2 sprays Discontinued Medications Albuterol (Ventolin Hfa) gm INH Q2H PRN PRN Reason: Shortness of Breath Aspirin (Aspirin) 324 mg PO NOW STA Stop: 07/23/17 17:05 Last Admin: 07/23/17 17:09 Dose: 324 mg - Exam General: Reports: Alert, Oriented, Cooperative HEENT: Reports: Pupils Equal, Pupils Reactive Neck: Reports: Supple Lungs: Reports: Clear to Auscultation, Normal Respiratory Effort Cardiovascular: Reports: Regular Rate, Regular Rhythm (Distant heart sounds.) GI/Abdominal Exam: Normal Bowel Sounds, Soft, Non-Tender Extremities: No Pedal Edema Skin: Reports: Warm, Dry *Q Meaningful Use (DIS) - VTE *Q VTE Criteria *Q: - Stroke *Q Stroke Criteria *Q: - AMI *Q AMI Criteria *Q:
[2017-07-24 09:18] VITALS: BP 112/46
[2017-07-24] MEDS: FLUTICASONE INH SCH (10:11)
[2017-07-24] MEDS: SALMETEROL INH SCH (10:11)
[2017-07-24] MEDS: APIXABAN 2.5 MG PO SCH (10:11)
[2017-07-24] MEDS: LISINOPRIL 5 MG PO SCH (10:13)
[2017-07-24] MEDS: ALPRAZolam 0.25 MG Tab PO SCH (10:21)
[2017-07-24] MEDS: Potassium Chloride 10 MEQ Tab.ER ** OWN MED PO SCH (10:23)
--- NOTE | 2017-07-24 11:10 | CR ---
INDICATION: Chest pain. CHEST: Portable AP upright view of the chest 07/23/2017, compared with 2016 and 01/17/2017, revealed post lumpectomy and axillary node dissection on the left, as previously. The heart appears enlarged or perhaps slightly increased in size, compared with the previous study. Pacemaker leads are unchanged in position. Calcification is again noted in the arch of the aorta. Findings suggesting COPD are noted. An active infiltrate or effusion was not identified. IMPRESSION: 1. Possible slight increase in heart size with ASHD and mild cardiomegaly. 2. Pacemaker leads unchanged. 3. Probable COPD. MTDD
--- NOTE | 2017-07-25 10:17 | ER ---
DATE SEEN: 07/23/2017 TIME SEEN: The patient was seen at 1115 hours on Monday. CHIEF COMPLAINT: At 0900 hours, onset of 9/10 chest pain, associated sore hand left side. HISTORY OF PRESENT ILLNESS: The pain started in the right, veers to the midline and to the left chest and then down the left arm. No associated fevers, chills, dyspnea, palpitations, syncope, diaphoresis, or near syncope. She did have a mild cough for the last 3 days. PAST MEDICAL HISTORY: Significant for congestive heart failure, PR x1, three stents, atrial flutter. She was recently changed to Eliquis at the [facility] to decrease the risk of CVA, instead of using any other anticoagulant. Hypertension-treated, hiatus hernia, hypothyroidism-treated, optic nerve atrophy, etiology indeterminate, asthma since youth, which she treats with Advair inhaler and albuterol MDI, GERD, depression, anxiety. The patient denies diabetes. SOCIAL HISTORY: The patient denies smoking, use of alcohol-rarely. She is , lives in [facility] [place]. REVIEW OF SYSTEMS: Negative, except for left hallux pain, 3+ days. It has been going on and off for several weeks. Plans to be seen by a physician to have that managed. There is a turning and twisting of her nail in her foot, it is thickened more than the other foot (onychogryphosis). Remainder of the review of systems is otherwise negative. PHYSICAL EXAMINATION: VITAL SIGNS: Blood pressure 140/75, heart rate 82, respirations 18, oxygen saturation 100%, and temperature is 36.4 degrees centigrade. Weight is 50.8 kilos. BMI 20.5 kg/sq m. ALLERGIES: Ibuprofen, latex, sulfa, codeine, and erythromycin. CURRENT MEDICATIONS: 1. Apixaban 2.5 mg b.i.d. 2. Bentyl 20 mg with dinner. 3. Albuterol and Advair. 4. Calcium carbonate with vitamin D. 5. Tylenol p.r.n. 6. Vitamin A-antioxidant formula. 7. Vitamin B12. 8. Potassium chloride. 9. Metolazone 2.5 mg p.r.n. 10.Omeprazole 20 b.i.d. 11.Nitroglycerin 0.4 mg. 12.Iron. 13.Digoxin 125 mcg daily. 14.Atorvastatin 40 at bedtime-dyslipidemia. 15.Doxepin 25 at bedtime, anxiety depression. 16.Lisinopril 5 b.i.d. 17.Levothyroxine 75 mcg daily. 18.Fluticasone propionate (allergic rhinitis). 19.Fexofenadine 180 daily. 20.Lasix 20 mg daily (congestive heart failure). 21.Montelukast 10 mg daily (asthma). 22.Aspirin 81 mg. 23.Prozac 20 mg daily. 24.Xanax 0.25 mg for anxiety b.i.d. PHYSICAL EXAMINATION: CONSTITUTIONAL: Alert, slightly anxious woman. She has intermittent tremors that move her chin, and she acknowledges she is anxious. Impressive slight thinning of her skin on her forehead resulting in slight prominence of venous structures. HEENT: PERRLA intact. Hearing is good. TMs normal. Pharynx without abnormality. NECK: Supple. No bruits in neck. HEART: S1 and S2. S2 is slightly louder than S1. No irregularities and no murmur noted. CHEST: No chest wall tenderness. ABDOMEN: Soft. No guarding and no abdominal discomfort. EXTREMITIES: Without edema. NEURO: Deep tendon reflexes in upper and lower extremities intact. Cranial nerves 2 through 12 intact. Oriented x3. Gait appropriate. Romberg negative. No past pointing. No pronator drift. Muscle strength in the lower extremities normal. LABORATORY FINDINGS: Hemoglobin low at 10.5, white count 8,600, PMNs 78, lymphocytes 15, monos 5, platelets 267,000. INR 1.03. D-dimer 558. Complete metabolic panel is normal, except for BUN 22, creatinine 1.1, GFR 48. Troponin 0.317, repeat 2 hours later 0.312. BNP 1,674. EKG normal sinus rhythm at 76, left axis low amplitude, poor R-wave progression across the anterior precordial leads, suggests old anterior septal myocardial infarction (not noted by the computer read out). ASSESSMENT: 1. Myocardial infarction. The patient does not want to go to [place], wants to stay here. The patient will be treated conservatively. This is associated with the following underlying cardiac history: a. History of PVCs, atrial flutter, congestive heart failure, three stents, recent [facility] change of medicine to [facility] from previous anticoagulant. 2. Hiatus hernia. 3. Hypothyroidism. 4. Optic atrophy. 5. Asthma since childhood. 6. Gastroesophageal reflux disease. 7. Depression and anxiety. 8. Left hallux pain, onychogryphosis, thickened induration with mechanical pressure pulling nail away from the subungual surface. 9. Treated hypothyroidism. 10.The patient has ICD in place, right chest. 11.Osteoporosis. 12.Chest x-ray with moderate cardiomegaly. No infiltrate noted. Trace increased cephalization of vessels consistent with the patient's congestive heart failure. The patient is status post consult with Dr. Lyles, and patient will be admitted for observation. The patient did not want to go to [place] for further cardiovascular intervention. /[id number] HUMBERTO/JOVANI
== END 2017-07-24 11:15 | disposition home or self-care (01) ==
LOC: FB.ED 11:00 → FB.MS 14:50
PROVIDERS: ADMIT Family Medicine; ATTEND Family Medicine
DX: R07.89 Other chest pain (principal); I50.20 Unspecified systolic (congestive) heart failure; I48.91 Unspecified atrial fibrillation; F41.8 Other specified anxiety disorders; J45.909 Unspecified asthma, uncomplicated; E03.9 Hypothyroidism, unspecified; N18.3 Chronic kidney disease, stage 3 (moderate); D72.829 Elevated white blood cell count, unspecified; K21.9 Gastro-esophageal reflux disease without esophagitis; Z79.82 Long term (current) use of aspirin; Z79.899 Other long term (current) drug therapy; Z88.1 Allergy status to other antibiotic agents; Z88.2 Allergy status to sulfonamides; Z91.040 Latex allergy status; Z88.8 Allergy status to other drugs, medicaments and biological substances
CPT/HCPCS: 36415; 71045; 80048; 80053; 81001; 83880; 84443; 84484; 85025; 85379; 85610; 93005; 99285; A9270; G0378

== ENCOUNTER 2017-11-16 18:43 | Observation (INO) | payer MEDICARE, BC ==
[2017-11-16] MEDS ORDERED: Aluminum Hydroxide/Magnesium Hydroxide Susp 30 ML Cup PO ONE (20:00)
--- NOTE | 2017-11-16 20:10 | EDM.PDOC ---
ED HPI GENERAL MEDICAL PROBLEM - General Chief Complaint: Abdominal Pain Stated Complaint: STOMACH PAIN Time Seen by Provider: 11/16/17 19:00 Source of Information: Reports: Patient, Family History Limitations: Reports: No Limitations - History of Present Illness INITIAL COMMENTS - FREE TEXT/NARRATIVE: c/o confusion when asked why she was here, pt launched into a long discussion about her dyspepsia, which is chronic daughter however said that she brought pt here because she had inc'd confusion tamara, another daughter and her member had gone to worm picker pt from [facility] and she was confused, dizzy. They were concerned that pt would not be able to walk back to her apt. Pt lives in [facility] in [place], has lunch and supper, did not remember what she ate for supper, is O x 3 here, pt did not seem to know what her dtr was talking about re the confusion pt on O2 at night for yrs, never smoked, no clear pul dx, did seem to sleep better with O2 at night after being in the hospital 3-4y ago. Pt says she sleeps poorly, to bed at 10:30p last night, slept until 4a today, then could not sleep more. This is a usual pattern for her. 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, has an ACID mid upper abdominal pain Pain Score (Numeric/FACES): 6 - Related Data Allergies Allergy/AdvReac Type Severity Reaction Status Date / Time ibuprofen Allergy Itching Verified 11/16/17 19:16 latex Allergy Itching Verified 11/16/17 19:16 Sulfa (Sulfonamide Allergy Stomach Verified 11/16/17 19:16 Antibiotics) Upset codeine AdvReac Insomnia Verified 11/16/17 19:16 erythromycin base AdvReac Stomach Verified 11/16/17 19:16 Upset Home Meds: Home Meds ALPRAZolam [Xanax] 0.25 tab PO BID 06/25/14 [History] Doxepin [SINEquan] 25 mg PO BEDTIME 06/25/14 [History] FLUoxetine [PROzac] 40 mg PO DAILY 06/25/14 [History] Furosemide [Lasix] 20 mg PO DAILY 06/25/14 [History] Lisinopril [Prinivil] 5 mg PO BID 06/25/14 [History] Montelukast Sodium 10 mg PO DAILY 06/25/14 [History] Omeprazole 20 mg PO BIDAC 06/25/14 [History] Levothyroxine 75 mcg PO ACBRK 06/26/14 [History] Cyanocobalamin (Vitamin B-12) [Vitamin B-12] 500 mcg SL WITHDINNER 05/12/15 [ History] Acetaminophen [Pain Reliever] 1,000 mg PO WITHDINNER 03/10/16 [History] Dicyclomine [Bentyl] 20 mg PO WITHDINNER 03/10/16 [History] Fexofenadine HCl [Aller-Ease] 180 mg PO DAILY 03/10/16 [History] Fluticasone Propionate 2 spray JUSTEN BID 03/24/16 [History] Fluticasone/Salmeterol [Advair Diskus 500-50] 1 puff INH BID 03/24/16 [History] Potassium Chloride 20 meq PO BIDMEALS 03/24/16 [History] ALPRAZolam [Xanax] 0.25 mg PO DAILY PRN 07/24/16 [History] Iron,Carbonyl/Ascorbic Acid [Vitron-C Tablet] 1 tab PO DAILY 07/25/16 [History] atorvaSTATin [Lipitor] 40 mg PO BEDTIME 07/25/16 [History] Aspirin [Halfprin] 81 mg PO DAILY 01/17/17 [History] Calcium Carbonate/Vitamin D3 [Calcium 600 + Vit D Tablet] 1 tab PO 18, [History] Cholecalciferol (Vitamin D3) [Vitamin D3] 2,000 unit PO DAILY 01/17/17 [History] Vit A/Vit C/Vit E/Selenium Yst [Antioxidant Formula Tablet] 1 tab PO BEDTIME 05/26 [History] Acetaminophen [Tylenol Arthritis Pain] 1,300 mg PO BID 01/18/17 [History] Metolazone 2.5 mg PO ASDIRECTED PRN 03/03/17 [History] Albuterol [Ventolin HFA] 2 puff INH Q2H PRN 07/23/17 [History] Apixaban [Eliquis] 2.5 mg PO BID 07/23/17 [History] Multivitamin [Multi-Vitamin Daily] 1 tab PO WITHDINNER 07/23/17 [History] Digoxin [Digox] 125 mcg PO DAILY 07/24/17 [History] Olopatadine [Pataday 0.2% Ophth Soln] 1 drop EYEBOTH DAILY 11/16/17 [History] Ranitidine HCl [Zantac] 150 mg PO BID 11/16/17 [History] Past Medical History HEENT History: Reports: Cataract Other HEENT History: Experiences sinus headaches. 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: Musculoskeletal History: Reports: Fracture, Other (See Below) Other Musculoskeletal History: chronic pain in both knees; fx of below right hip Psychiatric History: Reports: Anxiety, Depression Endocrine/Metabolic History: Reports: Hypothyroidism Oncologic (Cancer) History: Reports: Breast Other Oncologic History: Left breast, lumpectomy and node removal Dermatologic History: Reports: Eczema, Other (See Below) Other Dermatologic History: long ago; itching rash - Infectious Disease History Infectious Disease History: Reports: Chicken Pox, Measles, Mumps - Past Surgical History HEENT Surgical History: Reports: Cataract Surgery, Naso-Sinus Surgery, Other ( See Below) Cardiovascular Surgical History: Reports: Carotid Stents Respiratory Surgical History: Reports: None GI Surgical History: Reports: Appendectomy, Cholecystectomy Female Surgical History: Reports: Hysterectomy, Mastectomy, Other (See Below) Social & Family History - Family History Family Medical History: Noncontributory - Tobacco Use Smoking Status *Q: Never Smoker - Caffeine Use Caffeine Use: Reports: Coffee, Tea Other Caffeine Use: Drinks decaf coffee and green tea. - Recreational Drug Use Recreational Drug Use: No ED ROS GENERAL - Review of Systems Review Of Systems: See Below Constitutional: Reports: No Symptoms, Weakness, Fatigue. Denies: Fever, Chills , Malaise HEENT: Reports: No Symptoms Respiratory: Reports: No Symptoms. Denies: Shortness of Breath Cardiovascular: Reports: No Symptoms. Denies: Chest Pain Endocrine: Reports: No Symptoms GI/Abdominal: Reports: Abdominal Pain. Denies: Nausea, Vomiting : Reports: No Symptoms Musculoskeletal: Reports: No Symptoms Skin: Reports: No Symptoms Neurological: Reports: No Symptoms Psychiatric: Reports: No Symptoms Hematologic/Lymphatic: Reports: No Symptoms Immunologic: Reports: No Symptoms ED EXAM, GENERAL - Physical Exam Exam: See Below Exam Limited By: No Limitations General Appearance: Alert, WD/WN, No Apparent Distress, Thin, Other (neatly addressed, alert, pleasant, little insight into family's concerns, interactive altho seemed somewhat apathetic, nl speech pattern, would think awhile before answering simple questions) Eye Exam: Bilateral Eye: Normal Inspection, PERRL Ears: Normal External Exam, Hearing Grossly Normal Nose: Normal Inspection, Normal Mucosa, No Blood Throat/Mouth: Normal Inspection, Normal Lips, Normal Gums, Normal Oropharynx, Normal Voice, No Airway Compromise Head: Atraumatic, Normocephalic Neck: Normal Inspection, Supple, Non-Tender, Full Range of Motion. No: Lymphadenopathy (R), Lymphadenopathy (L), Thyromegaly Respiratory/Chest: No Respiratory Distress, Lungs Clear, Normal Breath Sounds, No Accessory Muscle Use, Chest Non-Tender Cardiovascular: No Edema, No Gallop, No Rub, Other (irreg irreg, 2/6 GRABIEL at LSB , quiet precordium). No: Gallop/S3, Gallop/S4 GI/Abdominal: Normal Bowel Sounds, Soft, No Organomegaly, No Distention, No Mass , Other (1+ epigastric tender) Back Exam: Normal Inspection, Full Range of Motion, NT Extremities: Normal Inspection, Normal Range of Motion, Non-Tender, No Pedal Edema Neurological: Alert, Oriented, CN II-XII Intact, No Motor/Sensory Deficits Psychiatric: Depressed Mood, Flat Affect Skin Exam: Warm, Dry, Intact, Normal Color, No Rash Lymphatic: No Adenopathy Course - Vital Signs Last Recorded V/S: Last Vital Signs Temp 36.3 C 11/16/17 19:15 Pulse 70 11/16/17 19:15 Resp 16 11/16/17 19:15 BP 124/59 L 11/16/17 19:15 Pulse Ox 100 11/16/17 19:15 Orthostatic Blood Pressure [ 141/55 Standing] Orthostatic Blood Pressure [ 124/74 Sitting] Orthostatic Blood Pressure [ 145/58 Supine] - Orders/Labs/Meds Orders: Active Orders 24 hr Category Date Time Status Admission Status [Patient Status] [ADT] Routine ADT 11/16/17 21:33 Ordered Orthostatic Vital Signs [RC] ASDIRECTED Care 11/16/17 19:59 Active Abdomen Series w Chest 1V [CR] Stat Exams 11/16/17 19:17 Taken Head wo Cont [CT] Stat Exams 11/16/17 19:57 Taken UA W/MICROSCOPIC [URIN] Stat Lab 11/16/17 20:40 Ordered EKG 12 Lead [EK] Routine Ther 11/16/17 19:57 Ordered Labs: Laboratory Tests 11/16/17 11/16/17 11/16/17 Range/Units 20:10 20:10 20:10 WBC 9.8 (4.5-12.0) X10-3/uL RBC 3.70 (3.23-5.20) x10(6)uL Hgb 11.7 (11.5-15.5) g/dL Hct 35.4 (30.0-51.3) % MCV 95.6 (80-96) fL MCH 31.7 (27.7-33.6) pg MCHC 33.2 (32.2-35.4) g/dL RDW 15.4 (11.5-15.5) % Plt Count 219 (125-369) X10(3)uL MPV 8.1 (7.4-10.4) fL Neut % (Auto) 80.3 (46-82) % Lymph % (Auto) 12.9 L (13-37) % [place] % (Auto) 4.8 (4-12) % Eos % (Auto) 2 (1.0-5.0) % Baso % (Auto) 0 (0-2) % Neut # (Auto) 7.8 (1.6-8.3) # Lymph # (Auto) 1.3 (0.6-5.0) # [place] # (Auto) 0.5 (0.0-1.3) # Eos # (Auto) 0.2 (0.0-0.8) # Baso # (Auto) 0.0 (0.0-0.2) # Sodium 136 (135-145) mmol/L Potassium 5.5 H D (3.5-5.3) mmol/L Chloride 101 (100-110) mmol/L Carbon Dioxide 26 (21-32) mmol/L BUN 22 H (7-18) mg/dL Creatinine 1.4 H (0.55-1.02) mg/dL Est Cr Clr Drug Dosing 24.93 mL/min Estimated GFR (MDRD) 36 L (>60) BUN/Creatinine Ratio 15.7 (9-20) Glucose 96 (80-116) mg/dL Calcium 9.9 (8.6-10.2) mg/dL Magnesium 1.5 L (1.8-2.5) mg/dL Total Bilirubin 0.5 (0.1-1.3) mg/dL AST 25 D (5-25) IU/L ALT 41 H D (12-36) U/L Alkaline Phosphatase 48 L (56-112) IU/L Troponin I 0.343 H* (<0.017-0.056) ng/mL C-Reactive Protein 2.9 H* (0.5-0.9) mg/dL NT-Pro-B Natriuret Pep 8236 H* (<=450) pg/mL Total Protein 7.4 (6.0-8.0) g/dL Albumin 3.5 (3.2-4.6) g/dL Globulin 3.9 g/dL Albumin/Globulin Ratio 0.9 TSH, Ultra Sensitive (0.36-3.74) IU/mL Urine Color (YELLOW) Urine Appearance (CLEAR) Urine pH (5.0-6.5) Ur Specific [place] (1.010-1.025) Urine Protein (NEGATIVE) mg/dL Urine Glucose (UA) (NEGATIVE) mg/dL Urine Ketones (NEGATIVE) mg/dL Urine Occult Blood (NEGATIVE) Urine Nitrite (NEGATIVE) Urine Bilirubin (NEGATIVE) Urine Urobilinogen (NEGATIVE) mg/dL Ur Leukocyte Esterase (NEGATIVE) Urine RBC (0) Urine WBC (0) Ur Squamous Epith Cells (NS,R,O) Urine Bacteria (NS) Digoxin (0.9-2.0) ng/mL 11/16/17 11/16/17 Range/Units 20:10 20:40 WBC (4.5-12.0) X10-3/uL RBC (3.23-5.20) x10(6)uL Hgb (11.5-15.5) g/dL Hct (30.0-51.3) % MCV (80-96) fL MCH (27.7-33.6) pg MCHC (32.2-35.4) g/dL RDW (11.5-15.5) % Plt Count (125-369) X10(3)uL MPV (7.4-10.4) fL Neut % (Auto) (46-82) % Lymph % (Auto) (13-37) % [place] % (Auto) (4-12) % Eos % (Auto) (1.0-5.0) % Baso % (Auto) (0-2) % Neut # (Auto) (1.6-8.3) # Lymph # (Auto) (0.6-5.0) # [place] # (Auto) (0.0-1.3) # Eos # (Auto) (0.0-0.8) # Baso # (Auto) (0.0-0.2) # Sodium (135-145) mmol/L Potassium (3.5-5.3) mmol/L Chloride (100-110) mmol/L Carbon Dioxide (21-32) mmol/L BUN (7-18) mg/dL Creatinine (0.55-1.02) mg/dL Est Cr Clr Drug Dosing mL/min Estimated GFR (MDRD) (>60) BUN/Creatinine Ratio (9-20) Glucose (80-116) mg/dL Calcium (8.6-10.2) mg/dL Magnesium (1.8-2.5) mg/dL Total Bilirubin (0.1-1.3) mg/dL AST (5-25) IU/L ALT (12-36) U/L Alkaline Phosphatase (56-112) IU/L Troponin I (<0.017-0.056) ng/mL C-Reactive Protein (0.5-0.9) mg/dL NT-Pro-B Natriuret Pep (<=450) pg/mL Total Protein (6.0-8.0) g/dL Albumin (3.2-4.6) g/dL Globulin g/dL Albumin/Globulin Ratio TSH, Ultra Sensitive 3.04 (0.36-3.74) IU/mL Urine Color Yellow (YELLOW) Urine Appearance Cloudy (CLEAR) Urine pH 5.0 (5.0-6.5) Ur Specific [place] 1.015 (1.010-1.025) Urine Protein Negative (NEGATIVE) mg/dL Urine Glucose (UA) Normal (NEGATIVE) mg/dL Urine Ketones Negative (NEGATIVE) mg/dL Urine Occult Blood Large H (NEGATIVE) Urine Nitrite Negative (NEGATIVE) Urine Bilirubin Negative (NEGATIVE) Urine Urobilinogen Normal (NEGATIVE) mg/dL Ur Leukocyte Esterase Large H (NEGATIVE) Urine RBC 5-10 (0) Urine WBC >100 H (0) Ur Squamous Epith Cells Few H (NS,R,O) Urine Bacteria Moderate H (NS) Digoxin 2.2 H (0.9-2.0) ng/mL Meds: Medications Discontinued Medications Generic Name Dose Route Start Last Admin Trade Name Freq PRN Reason Stop Dose Admin Al Hydroxide/Mg Hydroxide 30 ml 11/16/17 20:00 11/16/17 20:20 Mag-Al Susp PO 11/16/17 20:01 30 ml Q4H ONE Administration - Re-Assessments/Exams Free Text/Narrative Re-Assessment/Exam: 11/16/17 21:34 labs reviewed with pt head neg for acute change, does show extensive vascular disease KUB, 2v, no stool in vault, does have new small b/l pleural effusions with cephalization and peribronchial cuffing that is new c/w 07/27 HF worse with BNP 8236 now and up form 1674 froim 4m ago trop 0.343 now and unchanged from 4m ago, unclear if this is d/t chronic HF and where she may have some ongoing ischemia, of note is that WBC was inc'd 4m ago indicating possible adrenergic stress and is WNL now Mg a little low at 1.5 creat inc'd 1.1 to 1.4, c/w worsening HF not orthostatic with BP 145/58 and HR 42 supine, BP 141/55 and HR 80, daughter says pt's ACID/pacer is set to activate at 40 dig a little high at 2.2 altho may nomalize with mild diuresis pt does some depressed which is worrisome in the context of her worsening HF, daughters told that the heart may be failing because the pt is losing the will to live u/a does show UTI with > 100 wbc and moderate bacteria, UC pending will admit for r/o AL, IV antbxs, telemetry and possible adjustment of her cardiac meds prognosis is guarded pt does have marked cardiomegaly on CxR despite new pul edema she does not have peripheral edema inc'd CRP 2.9 is c/w UTI no prior positive UC in [facility] Departure - Departure Time of Disposition: 21:40 Disposition: Refer to Observation Condition: Fair Clinical Impression: Confusion, Acute exacerbation of congestive heart failure, Elevated troponin, Acute on chronic renal insufficiency, Hypomagnesemia, Depression Urinary tract infection Qualifiers: Urinary tract infection type: acute cystitis - Discharge Information Referrals: Florentin Jones MD [Primary Care Provider] - Forms: ED Department Discharge - My Orders Last 24 Hours: My Active Orders 11/16/17 19:17 Abdomen Series w Chest 1V [CR] Stat 11/16/17 19:57 Head wo Cont [CT] Stat EKG 12 Lead [EK] Routine 11/16/17 19:59 Orthostatic Vital Signs [RC] ASDIRECTED 11/16/17 20:40 UA W/MICROSCOPIC [URIN] Stat 11/16/17 21:33 Admission Status [Patient Status] [ADT] Routine - Assessment/Plan Last 24 Hours: My Active Orders 11/16/17 19:17 Abdomen Series w Chest 1V [CR] Stat 11/16/17 19:57 Head wo Cont [CT] Stat EKG 12 Lead [EK] Routine 11/16/17 19:59 Orthostatic Vital Signs [RC] ASDIRECTED 11/16/17 20:40 UA W/MICROSCOPIC [URIN] Stat 11/16/17 21:33 Admission Status [Patient Status] [ADT] Routine
[2017-11-16] MEDS ORDERED: cefTRIAXone 1,000 MG VIAL ONE (22:00)
[2017-11-16] MEDS ORDERED: cefTRIAXone 1,000 MG in Sodium Chloride 0.9% 50 ML IV SCH (22:00)
[2017-11-16] MEDS ORDERED: Magnesium Sulfate/Water 2 GM in Premix Bag 1 BAG IV ONE (22:30)
[2017-11-16] MEDS: cefTRIAXone 1,000 MG VIAL IV SCH (22:39)
[2017-11-16] MEDS: Sodium Chloride 0.9% 10 ML Syringe FLUSH PRN (22:40)
[2017-11-16] MEDS ORDERED: APIXABAN 2.5 MG PO ONE (23:00)
[2017-11-16] MEDS ORDERED: DOXEPIN 25 MG PO ONE (23:00)
[2017-11-16] MEDS ORDERED: ACETAMINOPHEN 650 MG PO ONE (23:00)
[2017-11-16] MEDS ORDERED: LISINOPRIL 5 MG PO ONE (23:00)
[2017-11-16] MEDS ORDERED: atorvaSTATin 40 MG Tab***OWN MED PO ONE (23:00)
[2017-11-16] MEDS ORDERED: RANITIDINE 150 MG PO ONE (23:00)
[2017-11-17] MEDS: Sodium Chloride 0.9% 10 ML Syringe FLUSH PRN ×2 (00:27→22:44)
[2017-11-17] MEDS: OMEPRAZOLE 20 MG PO SCH ×2 (06:48→17:37)
[2017-11-17] MEDS: Levothyroxine 75 MCG Tab***OWN MED PO SCH (06:48)
--- NOTE | 2017-11-17 08:44 | PCM.HP ---
H&P History of Present Illness - General Date of Service: 11/17/17 Admit Problem/Dx: Admission Diagnosis/Problem Admission Diagnosis/Problem Heart failure Source of Information: Patient, Family History Limitations: Reports: Altered Mental Status - History of Present Illness Initial Comments - Free Text/Narative: This is an 82-year-old female that is a resident of [facility]. Her daughters came to pick her up last night and found her to be weak, dizzy and confused. She states she lost her appetite about 2 days prior to being seen. She was brought to the ER and had a positive UTI. She denies dysuria, pyuria, hematuria, back pain or fevers. She's had a little bit of abdominal pain but no nausea, vomiting or diarrhea. She's been constipated mildly. She's had a cough for 3 weeks is nonproductive and that's improving. She denies shortness of breath or wheezing. She denies chest pain although she's had 3 heart attacks in the past. mid upper abdominal pain Pain Score (Numeric/FACES): 4 - Related Data Allergies/Adverse Reactions: Allergies Allergy/AdvReac Type Severity Reaction Status Date / Time ibuprofen Allergy Itching Verified 11/16/17 19:16 latex Allergy Itching Verified 11/16/17 19:16 Sulfa (Sulfonamide Allergy Stomach Verified 11/16/17 19:16 Antibiotics) Upset codeine AdvReac Insomnia Verified 11/16/17 19:16 erythromycin base AdvReac Stomach Verified 11/16/17 19:16 Upset Home Medications: Home Meds ALPRAZolam [Xanax] 0.25 tab PO BID 06/25/14 [History] Doxepin [SINEquan] 25 mg PO BEDTIME 06/25/14 [History] FLUoxetine [PROzac] 40 mg PO DAILY 06/25/14 [History] Furosemide [Lasix] 20 mg PO DAILY 06/25/14 [History] Lisinopril [Prinivil] 5 mg PO BID 06/25/14 [History] Montelukast Sodium 10 mg PO DAILY 06/25/14 [History] Omeprazole 20 mg PO BIDAC 06/25/14 [History] Levothyroxine 75 mcg PO ACBRK 06/26/14 [History] Cyanocobalamin (Vitamin B-12) [Vitamin B-12] 500 mcg SL WITHDINNER 05/12/15 [ History] Acetaminophen [Pain Reliever] 1,000 mg PO WITHDINNER 03/10/16 [History] Dicyclomine [Bentyl] 20 mg PO WITHDINNER 03/10/16 [History] Fexofenadine HCl [Aller-Ease] 180 mg PO DAILY 03/10/16 [History] Fluticasone Propionate 2 spray JUSTEN BID 03/24/16 [History] Fluticasone/Salmeterol [Advair Diskus 500-50] 1 puff INH BID 03/24/16 [History] Potassium Chloride 20 meq PO BIDMEALS 03/24/16 [History] ALPRAZolam [Xanax] 0.25 mg PO DAILY PRN 07/24/16 [History] Iron,Carbonyl/Ascorbic Acid [Vitron-C Tablet] 1 tab PO DAILY 07/25/16 [History] atorvaSTATin [Lipitor] 40 mg PO BEDTIME 07/25/16 [History] Aspirin [Halfprin] 81 mg PO DAILY 01/17/17 [History] Calcium Carbonate/Vitamin D3 [Calcium 600 + Vit D Tablet] 1 tab PO 18, [History] Cholecalciferol (Vitamin D3) [Vitamin D3] 2,000 unit PO DAILY 01/17/17 [History] Vit A/Vit C/Vit E/Selenium Yst [Antioxidant Formula Tablet] 1 tab PO BEDTIME 05/26 [History] Acetaminophen [Tylenol Arthritis Pain] 1,300 mg PO BID 01/18/17 [History] Metolazone 2.5 mg PO ASDIRECTED PRN 03/03/17 [History] Albuterol [Ventolin HFA] 2 puff INH Q2H PRN 07/23/17 [History] Apixaban [Eliquis] 2.5 mg PO BID 07/23/17 [History] Multivitamin [Multi-Vitamin Daily] 1 tab PO WITHDINNER 07/23/17 [History] Digoxin [Digox] 125 mcg PO DAILY 07/24/17 [History] Olopatadine [Pataday 0.2% Ophth Soln] 1 drop EYEBOTH DAILY 11/16/17 [History] Ranitidine HCl [Zantac] 150 mg PO BID 11/16/17 [History] Past Medical History HEENT History: Reports: Cataract Other HEENT History: Experiences sinus headaches. Cardiovascular History: Reports: Automatic Implantable Cardioverter Defibrillators, Heart Failure, High Cholesterol, Hypertension, [place], SOB on Exertion, Stents Other Cardiovascular History: 3 stents mitral valve failure Respiratory History: Reports: Asthma, SOB Gastrointestinal History: Reports: GERD, Hiatal Hernia Genitourinary History: Reports: UTI, Recurrent WALL MAN History: Reports: Musculoskeletal History: Reports: Fracture, Other (See Below) Other Musculoskeletal History: chronic pain in both knees; fx of below right hip Psychiatric History: Reports: Anxiety, Depression Endocrine/Metabolic History: Reports: Hypothyroidism Oncologic (Cancer) History: Reports: Breast Other Oncologic History: Left breast, lumpectomy and node removal Dermatologic History: Reports: Eczema, Other (See Below) Other Dermatologic History: long ago; itching rash - Infectious Disease History Infectious Disease History: Reports: Chicken Pox, Measles, Mumps - Past Surgical History HEENT Surgical History: Reports: Cataract Surgery, Naso-Sinus Surgery, Oral Surgery, Other (See Below) Cardiovascular Surgical History: Reports: Carotid Stents Respiratory Surgical History: Reports: None GI Surgical History: Reports: Appendectomy, Cholecystectomy, Colonoscopy Female Surgical History: Reports: Hysterectomy, Mastectomy, Other (See Below) Oncologic Surgical History: Reports: Mastectomy Social & Family History - Family History Family Medical History: Noncontributory - Tobacco Use Smoking Status *Q: Never Smoker Second Hand Smoke Exposure: No - Caffeine Use Caffeine Use: Reports: Tea Other Caffeine Use: Drinks decaf coffee and green tea. - Recreational Drug Use Recreational Drug Use: No H&P Review of Systems - Review of Systems: Review Of Systems: See Below General: Reports: Weakness HEENT: Reports: No Symptoms Pulmonary: Reports: Cough. Denies: Shortness of Breath, Wheezing Cardiovascular: Reports: No Symptoms Gastrointestinal: Reports: Abdominal Pain, Constipation Genitourinary: Reports: No Symptoms Musculoskeletal: Reports: No Symptoms Skin: Reports: No Symptoms Psychiatric: Reports: Confusion Neurological: Reports: Confusion, Dizziness Hematologic/Lymphatic: Reports: No Symptoms Immunologic: Reports: No Symptoms Exam - Exam Exam: See Below - Vital Signs Vital Signs: Last Vital Signs Temp 98.6 F 11/17/17 04:00 Pulse 76 11/17/17 04:00 Resp 18 11/17/17 04:00 BP 126/67 11/17/17 04:00 Pulse Ox 94 L 11/17/17 04:00 Orthostatic Blood Pressure [ 141/55 Standing] Orthostatic Blood Pressure [ 124/74 Sitting] Orthostatic Blood Pressure [ 145/58 Supine] Weight: 118 lb 4 oz - Exam General: Alert, Oriented, Cooperative, Other (This is after 12 hours of antibiotics) HEENT: PERRLA, Hearing Intact, Mucosa Moist & [place], Posterior Pharynx Clear, TMs Clear Neck: Supple, Trachea Midline, Other. No: Lymphadenopathy, JVD Lungs: Clear to Auscultation, Normal Respiratory Effort, Rub. No: Crackles, Rales, Rhonchi, Wheezing Cardiovascular: Regular Rate, Regular Rhythm. No: Systolic Murmur, Diastolic Murmur GI/Abdominal Exam: Normal Bowel Sounds, Soft, Non-Tender, No Organomegaly, No Distention, No Abnormal Bruit, No Mass Back Exam: Normal Inspection, Full Range of Motion Extremities: Normal Inspection, Normal Range of Motion, Non-Tender, No Pedal Edema Skin: Warm, Dry, Intact Neurological: Normal Speech, Normal Tone Neuro Extensive - Mental Status: Alert, Oriented x3, Normal Mood/Affect, Memory Intact. No: Normal Cognition Neuro Extensive - Motor, Sensory, Reflexes: Other (Not tested this a.m.) Psychiatric: Alert, Normal Affect, Normal Mood - Patient Data Lab Results Last 24 hrs: Laboratory Results - last 24 hr 11/16/17 11/16/17 11/16/17 Range/Units 20:10 20:10 20:10 WBC 9.8 (4.5-12.0) X10-3/uL RBC 3.70 (3.23-5.20) x10(6)uL Hgb 11.7 (11.5-15.5) g/dL Hct 35.4 (30.0-51.3) % MCV 95.6 (80-96) fL MCH 31.7 (27.7-33.6) pg MCHC 33.2 (32.2-35.4) g/dL RDW 15.4 (11.5-15.5) % Plt Count 219 (125-369) X10(3)uL MPV 8.1 (7.4-10.4) fL Neut % (Auto) 80.3 (46-82) % Lymph % (Auto) 12.9 L (13-37) % [place] % (Auto) 4.8 (4-12) % Eos % (Auto) 2 (1.0-5.0) % Baso % (Auto) 0 (0-2) % Neut # (Auto) 7.8 (1.6-8.3) # Lymph # (Auto) 1.3 (0.6-5.0) # [place] # (Auto) 0.5 (0.0-1.3) # Eos # (Auto) 0.2 (0.0-0.8) # Baso # (Auto) 0.0 (0.0-0.2) # Sodium 136 (135-145) mmol/L Potassium 5.5 H D (3.5-5.3) mmol/L Chloride 101 (100-110) mmol/L Carbon Dioxide 26 (21-32) mmol/L BUN 22 H (7-18) mg/dL Creatinine 1.4 H (0.55-1.02) mg/dL Est Cr Clr Drug Dosing 24.93 mL/min Estimated GFR (MDRD) 36 L (>60) BUN/Creatinine Ratio 15.7 (9-20) Glucose 96 (80-116) mg/dL Calcium 9.9 (8.6-10.2) mg/dL Magnesium 1.5 L (1.8-2.5) mg/dL Total Bilirubin 0.5 (0.1-1.3) mg/dL AST 25 D (5-25) IU/L ALT 41 H D (12-36) U/L Alkaline Phosphatase 48 L (56-112) IU/L Troponin I 0.343 H* (<0.017-0.056) ng/mL C-Reactive Protein 2.9 H* (0.5-0.9) mg/dL NT-Pro-B Natriuret Pep 8236 H* (<=450) pg/mL Total Protein 7.4 (6.0-8.0) g/dL Albumin 3.5 (3.2-4.6) g/dL Globulin 3.9 g/dL Albumin/Globulin Ratio 0.9 TSH, Ultra Sensitive (0.36-3.74) IU/mL Urine Color (YELLOW) Urine Appearance (CLEAR) Urine pH (5.0-6.5) Ur Specific [place] (1.010-1.025) Urine Protein (NEGATIVE) mg/dL Urine Glucose (UA) (NEGATIVE) mg/dL Urine Ketones (NEGATIVE) mg/dL Urine Occult Blood (NEGATIVE) Urine Nitrite (NEGATIVE) Urine Bilirubin (NEGATIVE) Urine Urobilinogen (NEGATIVE) mg/dL Ur Leukocyte Esterase (NEGATIVE) Urine RBC (0) Urine WBC (0) Ur Squamous Epith Cells (NS,R,O) Urine Bacteria (NS) Digoxin (0.9-2.0) ng/mL 11/16/17 11/16/17 11/17/17 Range/Units 20:10 20:40 06:13 WBC (4.5-12.0) X10-3/uL RBC (3.23-5.20) x10(6)uL Hgb (11.5-15.5) g/dL Hct (30.0-51.3) % MCV (80-96) fL MCH (27.7-33.6) pg MCHC (32.2-35.4) g/dL RDW (11.5-15.5) % Plt Count (125-369) X10(3)uL MPV (7.4-10.4) fL Neut % (Auto) (46-82) % Lymph % (Auto) (13-37) % [place] % (Auto) (4-12) % Eos % (Auto) (1.0-5.0) % Baso % (Auto) (0-2) % Neut # (Auto) (1.6-8.3) # Lymph # (Auto) (0.6-5.0) # [place] # (Auto) (0.0-1.3) # Eos # (Auto) (0.0-0.8) # Baso # (Auto) (0.0-0.2) # Sodium (135-145) mmol/L Potassium (3.5-5.3) mmol/L Chloride (100-110) mmol/L Carbon Dioxide (21-32) mmol/L BUN (7-18) mg/dL Creatinine (0.55-1.02) mg/dL Est Cr Clr Drug Dosing mL/min Estimated GFR (MDRD) (>60) BUN/Creatinine Ratio (9-20) Glucose (80-116) mg/dL Calcium (8.6-10.2) mg/dL Magnesium (1.8-2.5) mg/dL Total Bilirubin (0.1-1.3) mg/dL AST (5-25) IU/L ALT (12-36) U/L Alkaline Phosphatase (56-112) IU/L Troponin I 0.316 H* (<0.017-0.056) ng/mL C-Reactive Protein (0.5-0.9) mg/dL NT-Pro-B Natriuret Pep (<=450) pg/mL Total Protein (6.0-8.0) g/dL Albumin (3.2-4.6) g/dL Globulin g/dL Albumin/Globulin Ratio TSH, Ultra Sensitive 3.04 (0.36-3.74) IU/mL Urine Color Yellow (YELLOW) Urine Appearance Cloudy (CLEAR) Urine pH 5.0 (5.0-6.5) Ur Specific [place] 1.015 (1.010-1.025) Urine Protein Negative (NEGATIVE) mg/dL Urine Glucose (UA) Normal (NEGATIVE) mg/dL Urine Ketones Negative (NEGATIVE) mg/dL Urine Occult Blood Large H (NEGATIVE) Urine Nitrite Negative (NEGATIVE) Urine Bilirubin Negative (NEGATIVE) Urine Urobilinogen Normal (NEGATIVE) mg/dL Ur Leukocyte Esterase Large H (NEGATIVE) Urine RBC 5-10 (0) Urine WBC >100 H (0) Ur Squamous Epith Cells Few H (NS,R,O) Urine Bacteria Moderate H (NS) Digoxin 2.2 H (0.9-2.0) ng/mL 11/17/17 Range/Units 06:13 WBC (4.5-12.0) X10-3/uL RBC (3.23-5.20) x10(6)uL Hgb (11.5-15.5) g/dL Hct (30.0-51.3) % MCV (80-96) fL MCH (27.7-33.6) pg MCHC (32.2-35.4) g/dL RDW (11.5-15.5) % Plt Count (125-369) X10(3)uL MPV (7.4-10.4) fL Neut % (Auto) (46-82) % Lymph % (Auto) (13-37) % [place] % (Auto) (4-12) % Eos % (Auto) (1.0-5.0) % Baso % (Auto) (0-2) % Neut # (Auto) (1.6-8.3) # Lymph # (Auto) (0.6-5.0) # [place] # (Auto) (0.0-1.3) # Eos # (Auto) (0.0-0.8) # Baso # (Auto) (0.0-0.2) # Sodium 137 (135-145) mmol/L Potassium 4.9 (3.5-5.3) mmol/L Chloride 103 (100-110) mmol/L Carbon Dioxide 26 (21-32) mmol/L BUN 21 H (7-18) mg/dL Creatinine 1.2 H (0.55-1.02) mg/dL Est Cr Clr Drug Dosing 29.08 mL/min Estimated GFR (MDRD) 43 L (>60) BUN/Creatinine Ratio 17.5 (9-20) Glucose 94 (80-116) mg/dL Calcium 9.2 (8.6-10.2) mg/dL Magnesium (1.8-2.5) mg/dL Total Bilirubin (0.1-1.3) mg/dL AST (5-25) IU/L ALT (12-36) U/L Alkaline Phosphatase (56-112) IU/L Troponin I (<0.017-0.056) ng/mL C-Reactive Protein (0.5-0.9) mg/dL NT-Pro-B Natriuret Pep (<=450) pg/mL Total Protein (6.0-8.0) g/dL Albumin (3.2-4.6) g/dL Globulin g/dL Albumin/Globulin Ratio TSH, Ultra Sensitive (0.36-3.74) IU/mL Urine Color (YELLOW) Urine Appearance (CLEAR) Urine pH (5.0-6.5) Ur Specific [place] (1.010-1.025) Urine Protein (NEGATIVE) mg/dL Urine Glucose (UA) (NEGATIVE) mg/dL Urine Ketones (NEGATIVE) mg/dL Urine Occult Blood (NEGATIVE) Urine Nitrite (NEGATIVE) Urine Bilirubin (NEGATIVE) Urine Urobilinogen (NEGATIVE) mg/dL Ur Leukocyte Esterase (NEGATIVE) Urine RBC (0) Urine WBC (0) Ur Squamous Epith Cells (NS,R,O) Urine Bacteria (NS) Digoxin (0.9-2.0) ng/mL Result Diagrams: 11/16/17 20:10 11/17/17 06:13 - Problem List (1) Hyperlipidemia SNOMED Code(s): 18597943 ICD Code: E78.5 - HYPERLIPIDEMIA, UNSPECIFIED Status: Acute Current Visit : Yes (2) Palliative care status SNOMED Code(s): 369450051 ICD Code: Z51.5 - ENCOUNTER FOR PALLIATIVE CARE Status: Acute Current Visit: Yes (3) Acute on chronic renal insufficiency SNOMED Code(s): 737260548 ICD Code: N28.9 - DISORDER OF KIDNEY AND URETER, UNSPECIFIED; N18.9 - CHRONIC KIDNEY DISEASE, UNSPECIFIED Status: Acute Current Visit: Yes (4) Confusion SNOMED Code(s): 530760168 ICD Code: R41.0 - DISORIENTATION, UNSPECIFIED Status: Acute Current Visit : Yes (5) Elevated troponin SNOMED Code(s): 592980837, 706456699, 161412542 ICD Code: R74.8 - ABNORMAL LEVELS OF OTHER SERUM ENZYMES Status: Acute Current Visit: Yes (6) UTI (urinary tract infection) SNOMED Code(s): 44366067 ICD Code: N39.0 - URINARY TRACT INFECTION, SITE NOT SPECIFIED Status: Acute Current Visit: Yes Qualifiers: Urinary tract infection type: acute cystitis Problem List Initiated/Reviewed/Updated: Yes Orders Last 24hrs: Active Orders 24 hr Category Date Time Status Admission Status [Patient Status] [ADT] Routine ADT 11/16/17 21:33 Active Ambulate [RC] PER UNIT ROUTINE Care 11/17/17 07:50 Active Oxygen Therapy [RC] PRN Care 11/16/17 21:45 Active Telemetry Monitoring [Cardiac Monitoring] [RC] .As Care 11/16/17 21:33 Active Directed Up With Assistance [RC] 09,13,17,21 Care 11/16/17 21:45 Active VTE/DVT Education [RC] Per Unit Routine Care 11/16/17 21:45 Active Vital Signs [RC] 04,08,12,16,20,00 Care 11/16/17 21:45 Active 2 Gram Sodium Diet [DIET] Diet 11/17/17 Breakfast Active Heart Healthy Diet [DIET] Diet 11/17/17 Breakfast Active Abdomen Series w Chest 1V [CR] Stat Exams 11/16/17 19:17 Taken Head wo Cont [CT] Stat Exams 11/16/17 19:57 Taken CULTURE URINE [RM] Routine Lab 11/16/17 20:40 Received UA W/MICROSCOPIC [URIN] Stat Lab 11/16/17 20:40 Ordered ALPRAZolam [Xanax] Med 11/17/17 09:00 Active 0.25 mg PO BID Acetaminophen [Tylenol Arthritis Pain] Med 11/17/17 09:00 Active 1,300 mg PO BID Acetaminophen [Tylenol Extra Strength] Med 11/17/17 18:00 Active 1,000 mg PO WITHDINNER Apixaban [Eliquis] Med 11/17/17 09:00 Active 2.5 mg PO BID Aspirin [Halfprin] Med 11/17/17 09:00 Active 81 mg PO DAILY Doxepin [SINEquan] Med 11/17/17 21:00 Active 25 mg PO BEDTIME Fexofenadine [Chantal] Med 11/17/17 09:00 Active 180 mg PO DAILY Furosemide [Lasix] Med 11/17/17 09:00 Active 20 mg PO DAILY Levothyroxine Med 11/17/17 07:30 Active 75 mcg PO ACBRK Lisinopril [Prinivil] Med 11/17/17 09:00 Active 5 mg PO BID Montelukast [Singulair] Med 11/17/17 09:00 Active 10 mg PO DAILY Non-Formulary Medication [NF Drug] Med 11/17/17 09:00 Active 1 each EYEBOTH DAILY Non-Formulary Medication [NF Drug] Med 11/17/17 09:00 Active 1 each INH BID Non-Formulary Medication [NF Drug] Med 11/17/17 09:00 Active 1 each PO BID Non-Formulary Medication [NF Drug] Med 11/17/17 07:30 Active 1 each PO BIDAC Non-Formulary Medication [NF Drug] Med 11/17/17 18:00 Active 20 each PO WITHDINNER Non-Formulary Medication [NF Drug] Med 11/17/17 09:00 Active 40 each PO ACBREAKFAST Sodium Chloride 0.9% [Saline Flush] Med 11/16/17 21:45 Active 10 ml FLUSH ASDIRECTED PRN atorvaSTATin [Lipitor] Med 11/17/17 21:00 Active 40 mg PO BEDTIME cefTRIAXone [Rocephin] Med 11/16/17 23:00 Active 1,000 mg IV Q24H Saline Lock Insert [OM.PC] Routine Oth 11/16/17 21:45 Ordered Resuscitation Status Routine Resus Stat 11/16/17 21:45 Ordered EKG 12 Lead [EK] AM Ther 11/17/17 05:11 Ordered EKG 12 Lead [EK] Routine Ther 11/16/17 19:57 Ordered Medication Orders Acetaminophen (Tylenol Extra Strength) 1,000 mg PO WITHDINNER [facility] Acetaminophen (Tylenol Arthritis Pain) 1,300 mg PO BID [facility] Alprazolam (Xanax) 0.25 mg PO BID [facility] Apixaban (Eliquis) 2.5 mg PO BID [facility] Aspirin (Halfprin) 81 mg PO DAILY [facility] Atorvastatin Calcium (Lipitor) 40 mg PO BEDTIME [facility] Ceftriaxone Sodium (Rocephin) 1,000 mg IV Q24H [facility] Last Admin: 11/16/17 22:39 Dose: 1,000 mg Doxepin HCl (Sinequan) 25 mg PO BEDTIME [facility] Fexofenadine HCl (Chantal) 180 mg PO DAILY [facility] Furosemide (Lasix) 20 mg PO DAILY [facility] Levothyroxine Sodium (Levothyroxine) 75 mcg PO ACBRK [facility] Last Admin: 11/17/17 06:48 Dose: 75 mcg Lisinopril (Prinivil) 5 mg PO BID [facility] Montelukast Sodium (Singulair) 10 mg PO DAILY [facility] Dicyclomine 20mg Tab (Ptom) 20 each PO WITHDINNER [facility] Fluoxetine 40mg Cap (Ptom) 40 each PO ACBREAKFAST [facility] Advair 500/50 Own (Med) 1 each INH BID [facility] Olopatadine 0.2% (Ophth Own Med) 1 each EYEBOTH DAILY [facility] Omeprazole 20mg (Own Med) 1 each PO BIDAC [facility] Last Admin: 11/17/17 06:48 Dose: 1 each Ranitidine 150mg (Own Med) 1 each PO BID [facility] Sodium Chloride (Saline Flush) 10 ml FLUSH ASDIRECTED PRN PRN Reason: Keep Vein Open Last Admin: 11/17/17 00:27 Dose: 10 ml Admin: 11/16/17 22:40 Dose: 10 ml Assessment/Plan Comment:: 1. Admit the patient for observation with telemetry. 2. Start Rocephin for antibiotics. 3. For VTE prophylaxis she is on Eliquis. 4. She is a DNR and DNI which was discussed. 5. Up in chair and frequent ambulation. 6. Regular diet. 7. Continue most of her home medications and she can use her home meds because she is on observation care. 8. EKG and trend troponins.
[2017-11-17] MEDS: ACETAMINOPHEN 650 MG PO SCH ×2 (09:15→21:20)
[2017-11-17] MEDS: Montelukast 10 MG Tab***OWN MED PO SCH (09:16)
[2017-11-17] MEDS: LISINOPRIL 5 MG PO SCH ×2 (09:16→21:19)
[2017-11-17] MEDS: RANITIDINE 150 MG PO SCH ×2 (09:16→21:18)
[2017-11-17] MEDS: FLUOXETINE 40 MG PO SCH (09:17)
[2017-11-17] MEDS: FUROSEMIDE 20 MG PO SCH (09:17)
[2017-11-17] MEDS: ADVAIR INH SCH ×2 (09:18→21:17)
[2017-11-17] MEDS: APIXABAN 2.5 MG PO SCH ×2 (09:18→21:16)
[2017-11-17] MEDS: Aspirin 81 MG Tab.EC *PTOM PO SCH (09:18)
[2017-11-17] MEDS: ALPRAZolam 0.25 MG Tab PO SCH ×2 (09:19→22:41)
[2017-11-17] MEDS: OLOPATADINE 0.2% EYEBOTH SCH (10:00)
[2017-11-17] MEDS: FEXOFENADINE 180 MG PO SCH (10:25)
--- NOTE | 2017-11-17 11:03 | CT ---
INDICATION: Increased confusion and dizziness times [address] HEAD WITHOUT CONTRAST: Serial contiguous 2.5 and 5 mm sections were obtained through the brain without contrast 11/16/2017 and compared with 2016. Total exam DLP = 950.31 mGy-cm. Calcifications are noted in the left vertebral artery and in the internal carotid arteries bilaterally. No shift of midline structures is noted. Prominence of the ventricles is noted , compatible with central atrophy. Minimal patchy periventricular white matter change is noted, compatible with a mild degree of microvascular disease. No other abnormal areas of density were identified - no definite acute finding was seen - no bleeding site or hematoma was noted. Postsurgical changes are noted with windows cut in the media hale of the maxillary antra. Paranasal sinuses were otherwise unremarkable, except to note thickening of the lining of the right frontal air cell seen previously, possibly representing a retention cyst. Mastoid air cells appear to be well- aerated. No cranial abnormality was identified. IMPRESSION: 1. No acute intracranial abnormality. 2. Minimal low density abnormality periventricular, compatible with minimal microvascular disease - correlate clinically, as other cause of leukoencephalopathy cannot be excluded. 3. Postsurgical paranasal sinuses. Report was called to Dr. Buckley at 2050 hours on 11/16/2017. SINDI
--- NOTE | 2017-11-17 11:16 | CR ---
INDICATION: Epigastric pain, question obstruction/constipation. ABDOMEN SERIES WITH CHEST: CHEST: PA view of the chest was obtained 11/16/2017 and compared with 2017 and 03/02/2017, again revealing the heart to be enlarged with two ventricular pacemaker leads unchanged in position. The aorta is calcified in the arch area. There is a new finding of bilateral small to moderate sized pleural effusions, larger on the left. Parenchymal changes are perhaps minimal on the right and moderate on the left and may represent atelectasis and possibly pneumonia, again more prominent on the left. Findings compatible with COPD are also noted. Evidence of lumpectomy on the left with axillary node dissection is noted. No definite free air is noted under the hemidiaphragm leaves. IMPRESSION: 1. Bilateral pleural effusions and parenchymal changes, left much greater than right, may represent pneumonia and pleuritis, possibly atelectasis, especially on the left. 2. ASHD with cardiomegaly and pacemaker leads. 3. COPD. ABDOMEN: Four images of the abdomen in supine and upright projections were obtained 11/16/2017. No comparison abdomen x-rays were available. Hip pinning is noted on the right. A moderate dextroconcave scoliosis of the lower lumbar spine is noted, dextroconvex to a mild degree at the thoracolumbar spine. Degenerative disk disease is suggested at L4-5 and possibly L3-4. The pattern of gas and feces appears to be nonspecific without evidence of free air or definite obstructive process. The amount of stool is relatively minimal. Fluid filled loops of small bowel are suggested. No air fluid levels of any significance could be identified, however, there being only one in the distal small bowel. No definite organomegaly, mass lesions, or nonvascular pathologic calcifications were seen. IMPRESSION: 1. Nonacute abdomen - correlate clinically. 2. 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 3. Hip pinning on the right. 4. Dextroconcave scoliosis lower lumbar spine and dextroconvex scoliosis thoracolumbar spine with degenerative disk disease L4-5 and probably L3-4. 5. Bibasilar pleural parenchymal changes, which may be on the basis of pneumonia and pleuritis and possibly atelectasis. MTDD
[2017-11-17] MEDS: Acetaminophen 500 MG Tab *PTOM PO SCH (17:38)
[2017-11-17] MEDS: DICYCLOMINE 20 MG PO SCH (17:38)
[2017-11-17] MEDS ORDERED: DOXEPIN 25 MG PO SCH (21:00)
[2017-11-17] MEDS ORDERED: atorvaSTATin 40 MG Tab***OWN MED PO SCH (21:00)
[2017-11-17] MEDS: cefTRIAXone 1,000 MG VIAL IV SCH (22:42)
[2017-11-18] MEDS: Levothyroxine 75 MCG Tab***OWN MED PO SCH (07:35)
[2017-11-18] MEDS: FLUOXETINE 40 MG PO SCH (07:35)
[2017-11-18] MEDS: OMEPRAZOLE 20 MG PO SCH ×2 (07:35→18:32)
[2017-11-18] MEDS: FEXOFENADINE 180 MG PO SCH (08:29)
[2017-11-18] MEDS: FUROSEMIDE 20 MG PO SCH (08:30)
[2017-11-18] MEDS: Aspirin 81 MG Tab.EC *PTOM PO SCH (08:30)
[2017-11-18] MEDS: ADVAIR INH SCH (08:31)
[2017-11-18] MEDS: OLOPATADINE 0.2% EYEBOTH SCH (08:32)
[2017-11-18] MEDS: RANITIDINE 150 MG PO SCH (08:32)
[2017-11-18] MEDS: LISINOPRIL 5 MG PO SCH (08:32)
[2017-11-18] MEDS: ACETAMINOPHEN 650 MG PO SCH (08:33)
[2017-11-18] MEDS: Montelukast 10 MG Tab***OWN MED PO SCH (08:33)
[2017-11-18] MEDS: ALPRAZolam 0.25 MG Tab PO SCH (08:39)
[2017-11-18] MEDS: APIXABAN 2.5 MG PO SCH (08:39)
--- NOTE | 2017-11-18 10:36 | PCM.PN ---
- General Info Date of Service: 11/18/17 Admission Dx/Problem (Free Text): The patient denies confusion. When she sat up she felt a little dizzy. She denies chest pain, shortness of breath, dysuria, pyuria, hematuria, back pain. - Patient Data Vitals - Most Recent: Last Vital Signs Temp 97.6 F 11/18/17 02:30 Pulse 82 11/18/17 02:30 Resp 20 11/18/17 02:30 BP 131/68 11/18/17 08:32 Pulse Ox 95 11/18/17 02:30 Orthostatic Blood Pressure [ 141/55 Standing] Orthostatic Blood Pressure [ 124/74 Sitting] Orthostatic Blood Pressure [ 145/58 Supine] Weight - Most Recent: 116 lb 1.6 oz I&O - Last 24 Hours: Intake & Output 11/17/17 11/18/17 11/18/17 22:59 06:59 14:59 Output Total 700 Balance -700 Lab Results Last 24 Hours: Laboratory Results - last 24 hr 11/17/17 11/18/17 Range/Units 16:00 06:15 Troponin I 0.324 H* 0.286 H* (<0.017-0.056) ng/mL Charlie Results Last 24 Hours: Microbiology 11/16/17 20:40 Urine Culture - Preliminary Urine, Clean Catch Gram Positive Cocci Med Orders - Current: Current Medications Acetaminophen (Tylenol Extra Strength) 1,000 mg PO WITHDINNER [facility] Last Admin: 11/17/17 17:38 Dose: 1,000 mg Acetaminophen (Tylenol Arthritis Pain) 1,300 mg PO BID [facility] Last Admin: 11/18/17 08:33 Dose: 1,300 mg Alprazolam (Xanax) 0.25 mg PO BID [facility] Last Admin: 11/18/17 08:39 Dose: 0.25 mg Apixaban (Eliquis) 2.5 mg PO BID [facility] Last Admin: 11/18/17 08:39 Dose: 2.5 mg Aspirin (Halfprin) 81 mg PO DAILY [facility] Last Admin: 11/18/17 08:30 Dose: 81 mg Atorvastatin Calcium (Lipitor) 40 mg PO BEDTIME [facility] Last Admin: 11/17/17 21:17 Dose: 40 mg Ceftriaxone Sodium (Rocephin) 1,000 mg IV Q24H [facility] Last Admin: 11/17/17 22:42 Dose: 1,000 mg Doxepin HCl (Sinequan) 25 mg PO BEDTIME [facility] Last Admin: 11/17/17 21:20 Dose: 25 mg Fexofenadine HCl (Chantal) 180 mg PO DAILY [facility] Last Admin: 11/18/17 08:29 Dose: 180 mg Furosemide (Lasix) 20 mg PO DAILY [facility] Last Admin: 11/18/17 08:30 Dose: 20 mg Levothyroxine Sodium (Levothyroxine) 75 mcg PO ACBRK [facility] Last Admin: 11/18/17 07:35 Dose: 75 mcg Lisinopril (Prinivil) 5 mg PO BID [facility] Last Admin: 11/18/17 08:32 Dose: 5 mg Montelukast Sodium (Singulair) 10 mg PO DAILY [facility] Last Admin: 11/18/17 08:33 Dose: 10 mg Dicyclomine 20mg Tab (Ptom) 20 each PO WITHDINNER [facility] Last Admin: 11/17/17 17:38 Dose: 20 each Fluoxetine 40mg Cap (Ptom) 40 each PO ACBREAKFAST [facility] Last Admin: 11/18/17 07:35 Dose: 40 each Advair 500/50 Own (Med) 1 each INH BID [facility] Last Admin: 11/18/17 08:31 Dose: 1 each Olopatadine 0.2% (Ophth Own Med) 1 each EYEBOTH DAILY [facility] Last Admin: 11/18/17 08:32 Dose: Not Given Omeprazole 20mg (Own Med) 1 each PO BIDAC [facility] Last Admin: 11/18/17 07:35 Dose: 1 each Ranitidine 150mg (Own Med) 1 each PO BID [facility] Last Admin: 11/18/17 08:32 Dose: 1 each Sodium Chloride (Saline Flush) 10 ml FLUSH ASDIRECTED PRN PRN Reason: Keep Vein Open Last Admin: 11/17/17 22:44 Dose: 10 ml Discontinued Medications Acetaminophen (Tylenol Arthritis Pain) 1,300 mg PO ONETIME ONE Stop: 11/16/17 23:01 Last Admin: 11/16/17 22:59 Dose: 1,300 mg Al Hydroxide/Mg Hydroxide (Mag-Al Susp) 30 ml PO Q4H ONE Stop: 11/16/17 20:01 Last Admin: 11/16/17 20:20 Dose: 30 ml Alprazolam (Xanax) 0.25 mg PO ONETIME ONE Stop: 11/16/17 23:01 Last Admin: 11/16/17 22:57 Dose: 0.25 mg Apixaban (Eliquis) 2.5 mg PO ONETIME ONE Stop: 11/16/17 23:01 Last Admin: 11/16/17 22:56 Dose: 2.5 mg Atorvastatin Calcium (Lipitor) 40 mg PO ONETIME ONE Stop: 11/16/17 23:01 Last Admin: 11/16/17 22:56 Dose: 40 mg Ceftriaxone Sodium (Rocephin) Confirm Administered Dose 1,000 mg .ROUTE .ST- MED ONE Stop: 11/16/17 22:01 Last Admin: 11/16/17 22:17 Dose: Not Given Doxepin HCl (Sinequan) 25 mg PO ONETIME ONE Stop: 11/16/17 23:01 Last Admin: 11/16/17 22:57 Dose: 25 mg Ceftriaxone Sodium 1,000 mg/ (Sodium Chloride) 50 mls @ 100 mls/hr IV Q24H [facility]EE Magnesium Sulfate 1 gm/ (Dextrose/Water) 52 mls @ 100 mls/hr IV ONETIME ONE Stop: 11/16/17 22:31 Last Admin: 11/16/17 22:00 Dose: 100 mls/hr Magnesium Sulfate 2 gm/ Premix 50 mls @ 150 mls/hr IV ONETIME ONE Stop: 11/16/17 22:49 Last Admin: 11/16/17 22:34 Dose: 25 mls/hr Lisinopril (Prinivil) 5 mg PO ONETIME ONE Stop: 11/16/17 23:01 Last Admin: 11/16/17 22:56 Dose: 5 mg Ranitidine 150mg (Own Med) 1 each PO ONETIME ONE Stop: 11/16/17 23:01 Last Admin: 11/16/17 22:56 Dose: 1 each - Exam General: Alert, Oriented, Cooperative Neck: Supple Lungs: Clear to Auscultation, Normal Respiratory Effort Cardiovascular: Regular Rate, Regular Rhythm, No Murmurs Back Exam: Normal Inspection Extremities: No Pedal Edema Skin: Warm Psy/Mental Status: Alert, Normal Affect, Normal Mood - Problem List & Annotations (1) Hyperlipidemia SNOMED Code(s): 23431281 Code(s): E78.5 - HYPERLIPIDEMIA, UNSPECIFIED Status: Acute Current Visit : Yes (2) Palliative care status SNOMED Code(s): 416160111 Code(s): Z51.5 - ENCOUNTER FOR PALLIATIVE CARE Status: Acute Current Visit: Yes (3) Acute on chronic renal insufficiency SNOMED Code(s): 256958735 Code(s): N28.9 - DISORDER OF KIDNEY AND URETER, UNSPECIFIED; N18.9 - CHRONIC KIDNEY DISEASE, UNSPECIFIED Status: Acute Current Visit: Yes (4) Confusion SNOMED Code(s): 333606772 Code(s): R41.0 - DISORIENTATION, UNSPECIFIED Status: Acute Current Visit : Yes (5) Elevated troponin SNOMED Code(s): 886769555, 174014508, 314921930 Code(s): R74.8 - ABNORMAL LEVELS OF OTHER SERUM ENZYMES Status: Acute Current Visit: Yes (6) UTI (urinary tract infection) SNOMED Code(s): 38800467 Code(s): N39.0 - URINARY TRACT INFECTION, SITE NOT SPECIFIED Status: Acute Current Visit: Yes Qualifiers: Urinary tract infection type: acute cystitis - Problem List Review Problem List Initiated/Reviewed/Updated: Yes - My Orders Last 24 Hours: My Active Orders 11/17/17 16:00 EKG 12 Lead [EK] Routine 11/18/17 05:11 EKG 12 Lead [EK] AM 11/18/17 07:00 Discontinue Telemetry Monitoring [Cardiac Monitoring Discontinue] [RC] Click to Edit - Assessment Assessment:: 1. Troponin is trending down and has been on the low side so I suspect this may be stress because she does not have any other symptoms of a coronary artery event. 2. Urine was grown gram-positive cocci greater than 100,000 which is what I believe is causing her problem. The micro-be done later this afternoon and they will consider changing to by mouth antibiotics at that time. 3. Ambulate and up in chair - Plan Plan:: 1. Admit the patient for observation with telemetry. 2. Start Rocephin for antibiotics. 3. For VTE prophylaxis she is on Eliquis. 4. She is a DNR and DNI which was discussed. 5. Up in chair and frequent ambulation. 6. Regular diet. 7. Continue most of her home medications and she can use her home meds because she is on observation care. 8. EKG and trend troponins.
[2017-11-18] MEDS ORDERED: Albuterol 8 GM Inhaler*PT OWN MED INH PRN (14:58)
[2017-11-18 16:19] VITALS: BP 102/59
--- NOTE | 2017-11-18 16:40 | PCM.SN ---
- Free Text/Narrative Note: Patient did better today with increasing appetite and strength. Had one episode dizziness but it got better and she is able to walk with her walker and do well. Daughters comfortable how she's doing. Urine culture shows enterococcus faecalis. Sensitivities reviewed. Will send her home on penicillin 500 mg 4 times a day
--- NOTE | 2017-11-18 16:44 | PCM.DCSUM1 ---
Discharge Summary - Hospital Course Free Text/Narrative:: Hospital course-patient was admitted to the hospital she was given Rocephin. Head CT showed no acute changes. She had a flat and upright of the stomach and chest. She was a little bit abdominal pain. He was essentially negative other than some mild pleural effusions. Of course said could not rule out pneumonia. Urine was positive with greater than 50 WBCs. Patient's troponin was elevated. Should no acute changes of EKG serially. She did have some bigeminy at times and some PVCs. We trended her troponins and they were very low levels and improved area patient had no symptoms of coronary artery disease. Her symptoms are consistent with a bladder infection her being dizzy, weak, tired and no appetite. She did not have any bladder symptoms. She was given Rocephin for 2 days and improved nicely. Her urine grew enterococcus Faecalis. Sensitive to penicillin. We'll discharge her home on penicillin 500 mg 4 times a day. Recheck with Dr. Krishnamurthy and 10 days with a UA. Potassium was also little bit elevated at 5 by the morning was normal. Brief History: This is an 82-year-old female that is a resident of [facility]. Her daughters came to pick her up last night and found her to be weak, dizzy and confused. She states she lost her appetite about 2 days prior to being seen. She was brought to the ER and had a positive UTI. She denies dysuria , pyuria, hematuria, back pain or fevers. She's had a little bit of abdominal pain but no nausea, vomiting or diarrhea. She's been constipated mildly. She's had a cough for 3 weeks is nonproductive and that's improving. She denies shortness of breath or wheezing. She denies chest pain although she's had 3 heart attacks in the past. - Discharge Data Discharge Date: 11/18/17 Discharge Disposition: Home, Self-Care 01 Condition: Good - Discharge Diagnosis/Problem(s) (1) Hyperlipidemia SNOMED Code(s): 53242805 ICD Code: E78.5 - HYPERLIPIDEMIA, UNSPECIFIED Status: Acute Current Visit : Yes (2) Palliative care status SNOMED Code(s): 886047647 ICD Code: Z51.5 - ENCOUNTER FOR PALLIATIVE CARE Status: Acute Current Visit: Yes (3) Acute on chronic renal insufficiency SNOMED Code(s): 126973580 ICD Code: N28.9 - DISORDER OF KIDNEY AND URETER, UNSPECIFIED; N18.9 - CHRONIC KIDNEY DISEASE, UNSPECIFIED Status: Acute Current Visit: Yes (4) Confusion SNOMED Code(s): 203627453 ICD Code: R41.0 - DISORIENTATION, UNSPECIFIED Status: Acute Current Visit : Yes (5) Elevated troponin SNOMED Code(s): 626153698, 831482258, 297593822 ICD Code: R74.8 - ABNORMAL LEVELS OF OTHER SERUM ENZYMES Status: Acute Current Visit: Yes (6) UTI (urinary tract infection) SNOMED Code(s): 55499076 ICD Code: N39.0 - URINARY TRACT INFECTION, SITE NOT SPECIFIED Status: Acute Current Visit: Yes Qualifiers: Urinary tract infection type: acute cystitis (7) Pleural effusion SNOMED Code(s): 00266499 ICD Code: J90 - PLEURAL EFFUSION, NOT ELSEWHERE CLASSIFIED Status: Acute Current Visit: Yes (8) Hyperkalemia SNOMED Code(s): 21854313 ICD Code: E87.5 - HYPERKALEMIA Status: Acute Current Visit: Yes - Patient Instructions Diet: Heart Healthy Diet Activity: As Tolerated Driving: Do Not Drive Showering/Bathing: May Shower Other/Special Instructions: 1. Recheck in 10 days with a UA with Dr. Krishnamurthy - Discharge Plan Prescriptions/Med Rec: Penicillin V Potassium 500 mg PO QID #34 tab Home Medications: Home Meds ALPRAZolam [Xanax] 0.25 tab PO BID 06/25/14 [History] Doxepin [SINEquan] 25 mg PO BEDTIME 06/25/14 [History] FLUoxetine [PROzac] 40 mg PO DAILY 06/25/14 [History] Furosemide [Lasix] 20 mg PO DAILY 06/25/14 [History] Lisinopril [Prinivil] 5 mg PO BID 06/25/14 [History] Montelukast Sodium 10 mg PO DAILY 06/25/14 [History] Omeprazole 20 mg PO BIDAC 06/25/14 [History] Levothyroxine 75 mcg PO ACBRK 06/26/14 [History] Cyanocobalamin (Vitamin B-12) [Vitamin B-12] 500 mcg SL WITHDINNER 05/12/15 [ History] Acetaminophen [Pain Reliever] 1,000 mg PO WITHDINNER 03/10/16 [History] Dicyclomine [Bentyl] 20 mg PO WITHDINNER 03/10/16 [History] Fexofenadine HCl [Aller-Ease] 180 mg PO DAILY 03/10/16 [History] Fluticasone Propionate 2 spray JUSTEN BID 03/24/16 [History] Fluticasone/Salmeterol [Advair Diskus 500-50] 1 puff INH BID 03/24/16 [History] Potassium Chloride 20 meq PO BIDMEALS 03/24/16 [History] ALPRAZolam [Xanax] 0.25 mg PO DAILY PRN 07/24/16 [History] Iron,Carbonyl/Ascorbic Acid [Vitron-C Tablet] 1 tab PO DAILY 07/25/16 [History] atorvaSTATin [Lipitor] 40 mg PO BEDTIME 07/25/16 [History] Aspirin [Halfprin] 81 mg PO DAILY 01/17/17 [History] Calcium Carbonate/Vitamin D3 [Calcium 600 + Vit D Tablet] 1 tab PO 18, [History] Cholecalciferol (Vitamin D3) [Vitamin D3] 2,000 unit PO DAILY 01/17/17 [History] Vit A/Vit C/Vit E/Selenium Yst [Antioxidant Formula Tablet] 1 tab PO BEDTIME 05/26 [History] Acetaminophen [Tylenol Arthritis Pain] 1,300 mg PO BID 01/18/17 [History] Metolazone 2.5 mg PO ASDIRECTED PRN 03/03/17 [History] Albuterol [Ventolin HFA] 2 puff INH Q2H PRN 07/23/17 [History] Apixaban [Eliquis] 2.5 mg PO BID 07/23/17 [History] Multivitamin [Multi-Vitamin Daily] 1 tab PO WITHDINNER 07/23/17 [History] Digoxin [Digox] 125 mcg PO DAILY 07/24/17 [History] Olopatadine [Pataday 0.2% Ophth Soln] 1 drop EYEBOTH DAILY 11/16/17 [History] Ranitidine HCl [Zantac] 150 mg PO BID 11/16/17 [History] Penicillin V Potassium 500 mg PO QID #34 tab 11/18/17 [Rx] Forms: ED Department Discharge Referrals: Florentin Jones MD [Primary Care Provider] - - Discharge Summary/Plan Comment DC Time >30 min.: Yes - Patient Data Vitals - Most Recent: Last Vital Signs Temp 97.5 F 11/18/17 15:50 Pulse 75 11/18/17 15:50 Resp 20 11/18/17 15:50 BP 102/59 L 11/18/17 15:50 Pulse Ox 96 11/18/17 15:50 Orthostatic Blood Pressure [ 141/55 Standing] Orthostatic Blood Pressure [ 124/74 Sitting] Orthostatic Blood Pressure [ 145/58 Supine] Weight - Most Recent: 116 lb 1.6 oz I&O - Last 24 hours: Intake & Output 11/18/17 11/18/17 11/18/17 06:59 14:59 22:59 Output Total 700 700 Balance -700 -700 Lab Results - Last 24 hrs: Laboratory Results - last 24 hr 11/18/17 Range/Units 06:15 Troponin I 0.286 H* (<0.017-0.056) ng/mL TATA Results - Last 24 hrs: Microbiology 11/16/17 20:40 Urine Culture - Final Urine, Clean Catch Enterococcus Faecalis Med Orders - Current: Current Medications Acetaminophen (Tylenol Extra Strength) 1,000 mg PO WITHDINNER [facility] Last Admin: 11/17/17 17:38 Dose: 1,000 mg Acetaminophen (Tylenol Arthritis Pain) 1,300 mg PO BID [facility] Last Admin: 11/18/17 08:33 Dose: 1,300 mg Albuterol (Ventolin Hfa) 0 gm INH Q2H PRN PRN Reason: Shortness of Breath Last Admin: 11/18/17 15:52 Dose: 2 puff Alprazolam (Xanax) 0.25 mg PO BID [facility] Last Admin: 11/18/17 08:39 Dose: 0.25 mg Apixaban (Eliquis) 2.5 mg PO BID [facility] Last Admin: 11/18/17 08:39 Dose: 2.5 mg Aspirin (Halfprin) 81 mg PO DAILY [facility] Last Admin: 11/18/17 08:30 Dose: 81 mg Atorvastatin Calcium (Lipitor) 40 mg PO BEDTIME [facility] Last Admin: 11/17/17 21:17 Dose: 40 mg Ceftriaxone Sodium (Rocephin) 1,000 mg IV Q24H [facility] Last Admin: 11/17/17 22:42 Dose: 1,000 mg Doxepin HCl (Sinequan) 25 mg PO BEDTIME [facility] Last Admin: 11/17/17 21:20 Dose: 25 mg Fexofenadine HCl (Chantal) 180 mg PO DAILY [facility] Last Admin: 11/18/17 08:29 Dose: 180 mg Furosemide (Lasix) 20 mg PO DAILY [facility] Last Admin: 11/18/17 08:30 Dose: 20 mg Levothyroxine Sodium (Levothyroxine) 75 mcg PO ACBRK [facility] Last Admin: 11/18/17 07:35 Dose: 75 mcg Lisinopril (Prinivil) 5 mg PO BID [facility] Last Admin: 11/18/17 08:32 Dose: 5 mg Montelukast Sodium (Singulair) 10 mg PO DAILY [facility] Last Admin: 11/18/17 08:33 Dose: 10 mg Dicyclomine 20mg Tab (Ptom) 20 each PO WITHDINNER [facility] Last Admin: 11/17/17 17:38 Dose: 20 each Fluoxetine 40mg Cap (Ptom) 40 each PO ACBREAKFAST [facility] Last Admin: 11/18/17 07:35 Dose: 40 each Advair 500/50 Own (Med) 1 each INH BID [facility] Last Admin: 11/18/17 08:31 Dose: 1 each Olopatadine 0.2% (Ophth Own Med) 1 each EYEBOTH DAILY [facility] Last Admin: 11/18/17 08:32 Dose: Not Given Omeprazole 20mg (Own Med) 1 each PO BIDAC [facility] Last Admin: 11/18/17 07:35 Dose: 1 each Ranitidine 150mg (Own Med) 1 each PO BID [facility] Last Admin: 11/18/17 08:32 Dose: 1 each Sodium Chloride (Saline Flush) 10 ml FLUSH ASDIRECTED PRN PRN Reason: Keep Vein Open Last Admin: 11/17/17 22:44 Dose: 10 ml Discontinued Medications Acetaminophen (Tylenol Arthritis Pain) 1,300 mg PO ONETIME ONE Stop: 11/16/17 23:01 Last Admin: 11/16/17 22:59 Dose: 1,300 mg Al Hydroxide/Mg Hydroxide (Mag-Al Susp) 30 ml PO Q4H ONE Stop: 11/16/17 20:01 Last Admin: 11/16/17 20:20 Dose: 30 ml Alprazolam (Xanax) 0.25 mg PO ONETIME ONE Stop: 11/16/17 23:01 Last Admin: 11/16/17 22:57 Dose: 0.25 mg Apixaban (Eliquis) 2.5 mg PO ONETIME ONE Stop: 11/16/17 23:01 Last Admin: 11/16/17 22:56 Dose: 2.5 mg Atorvastatin Calcium (Lipitor) 40 mg PO ONETIME ONE Stop: 11/16/17 23:01 Last Admin: 11/16/17 22:56 Dose: 40 mg Ceftriaxone Sodium (Rocephin) Confirm Administered Dose 1,000 mg .ROUTE .STK- MED ONE Stop: 11/16/17 22:01 Last Admin: 11/16/17 22:17 Dose: Not Given Doxepin HCl (Sinequan) 25 mg PO ONETIME ONE Stop: 11/16/17 23:01 Last Admin: 11/16/17 22:57 Dose: 25 mg Ceftriaxone Sodium 1,000 mg/ (Sodium Chloride) 50 mls @ 100 mls/hr IV Q24H [facility] Magnesium Sulfate 1 gm/ (Dextrose/Water) 52 mls @ 100 mls/hr IV ONETIME ONE Stop: 11/16/17 22:31 Last Admin: 11/16/17 22:00 Dose: 100 mls/hr Magnesium Sulfate 2 gm/ Premix 50 mls @ 150 mls/hr IV ONETIME ONE Stop: 11/16/17 22:49 Last Admin: 11/16/17 22:34 Dose: 25 mls/hr Lisinopril (Prinivil) 5 mg PO ONETIME ONE Stop: 11/16/17 23:01 Last Admin: 11/16/17 22:56 Dose: 5 mg Ranitidine 150mg (Own Med) 1 each PO ONETIME ONE Stop: 11/16/17 23:01 Last Admin: 11/16/17 22:56 Dose: 1 each
[2017-11-18] MEDS: DICYCLOMINE 20 MG PO SCH (18:30)
[2017-11-18] MEDS: Acetaminophen 500 MG Tab *PTOM PO SCH (18:33)
== END 2017-11-18 19:05 | disposition home or self-care (01) ==
LOC: FB.ED 18:43 → UNDOADMOB 21:33 → FB.MS 21:33
PROVIDERS: ADMIT Emergency Medicine; ATTEND Family Medicine
DX: R41.0 Disorientation, unspecified (principal); R42 Dizziness and giddiness; N18.9 Chronic kidney disease, unspecified; E78.5 Hyperlipidemia, unspecified; J45.909 Unspecified asthma, uncomplicated; K21.9 Gastro-esophageal reflux disease without esophagitis; F41.9 Anxiety disorder, unspecified; F32.9 Major depressive disorder, single episode, unspecified; E03.9 Hypothyroidism, unspecified; I25.2 Old myocardial infarction; I50.9 Heart failure, unspecified; E83.42 Hypomagnesemia; R74.8 Abnormal levels of other serum enzymes; N30.00 Acute cystitis without hematuria; B95.2 Enterococcus as the cause of diseases classified elsewhere; E87.5 Hyperkalemia; J90 Pleural effusion, not elsewhere classified; Z88.5 Allergy status to narcotic agent; Z88.2 Allergy status to sulfonamides; Z91.040 Latex allergy status; Z88.6 Allergy status to analgesic agent; Z79.899 Other long term (current) drug therapy
CPT/HCPCS: 36415; 70450; 74022; 80048; 80053; 80162; 81001; 83735; 83880; 84443; 84484; 85025; 86140; 87086; 87088; 87186; 93005; 96365; 96366; 96368; 96375; 99284; 99285; A9270-GY; G0378; J0696; J3475; J7050; J7060

== ENCOUNTER 2017-12-09 19:46 | Inpatient (IN) | payer MEDICARE, BC ==
[2017-12-09] MEDS: Sodium Chloride 0.9% 1,000 ML IV SCH (21:03)
[2017-12-09] MEDS ORDERED: Sodium Chloride 0.9% 1,000 ML IV SCH (21:15)
[2017-12-09] MEDS: cefTRIAXone 1,000 MG VIAL IVPUSH SCH (21:36)
[2017-12-09] MEDS ORDERED: Aluminum Hydroxide/Magnesium Hydroxide Susp 30 ML Cup PO PRN (21:59)
--- NOTE | 2017-12-09 22:06 | ER ---
DATE SEEN: 12/09/2017 CHIEF COMPLAINT: Vaginal pain. HISTORY OF PRESENT ILLNESS: Jo is an 82-year-old female, well known to me, who comes in with vaginal pain. These symptoms have been there for about a week or more. She complains of significant pain that is constant, whether she is standing or sitting and has tried Diflucan and some vaginal suppository for yeast with minimal improvement. She saw me in the clinic about a week ago. At that time, the urine showed E coli, but she did not have any urinary symptoms. She denies any urinary symptoms night, but still has some pelvic pain as well. At the clinic, I also increased Lasix to 40 mg daily from her usual dose and she now complains of feeling tired and awful. She has had problems with sleep and appetite, losing weight unintentionally, and recently some of her friends including her has in the last week. She lives at [facility]. REVIEW OF SYSTEMS: She denies any fever, chills, nausea, vomiting. No constipation. PAST MEDICAL HISTORY: Significant for CHF, SVT, mitral valve insufficiency, GERD, hyperlipidemia, and chronic kidney disease, baseline creatinine is 1.15. She also has a history of anemia. ALLERGIES: Please see the nurse's notes. PHYSICAL EXAMINATION: GENERAL: She is sick appearing. VITAL SIGNS: Blood pressure 92/59, pulse 91, and temp 97.6. ENT: Negative. NECK: Supple. CHEST: Clear. ABDOMEN: Soft. There is mild tenderness in the suprapubic area. GENITOURINARY: Vaginal exam revealed vaginal atrophy, but no drainage or discharge. LABORATORY DATA: A wet prep is negative. UA today revealed 10-20 rbc's and a semi packed white cells. Creatinine was 2.1, potassium is 5.4, and WBC count 12.9. IMPRESSION: 1. Genitourinary syndrome of the menopause. 2. [id number] kidney injury. 3. Hyperkalemia. 4. Abdominal pain. 5. Asymptomatic bacteriuria. 6. Hypotension. 7. Anxiety. PLAN: I feel that she does need to be admitted. I will start gentle fluid rehydration, stop the Lasix and also start vaginal estrogen cream for comfort. The CT of the abdomen and pelvis showed inflammation of the anterior abdominal wall, possibly due to cellulitis, but she has no clinical suggestion of the same. However, with the bacteria showing E coli in the urine on the , which is sensitive to ampicillin and penicillin, I feel perhaps she will benefit from an antibiotic just because the symptoms of UTI are vague. /[id number] [place]/MODL
[2017-12-09] MEDS: ESTROGENS CONJUGATED VAG SCH (22:30)
[2017-12-09] MEDS: Formoterol/Mometasone 200-5 MCG 8.8 GM Inhaler IH SCH (22:35)
[2017-12-10] MEDS ORDERED: Acetaminophen 325 MG Tab PO PRN (01:23)
[2017-12-10] MEDS ORDERED: Trolamine Salicylate/Aloe Vera 10% Crm 85 GM Tube TOP PRN (04:22)
[2017-12-10] MEDS: Pantoprazole 40 MG Tab.CR PO SCH (06:45)
[2017-12-10] MEDS: Levothyroxine 75 MCG Tab PO SCH (06:45)
--- NOTE | 2017-12-10 08:56 | PCM.HP ---
H&P History of Present Illness - General Date of Service: 12/10/17 Admit Problem/Dx: Admission Diagnosis/Problem Admission Diagnosis/Problem Genitourinary pain Source of Information: Patient, Family, Old Records, Provider (through nursing to verify medication) History Limitations: Reports: No Limitations - History of Present Illness Initial Comments - Free Text/Narative: patient is an 82-year-old female with an extensive history of coronary artery disease, chronic kidney disease, atrial fibrillation on anticoagulation, and gastroesophageal reflux disease. She's had a very difficult month with depression and doctoring because her has been passing away. He about a week ago and at that time she started to develop some vaginal pain. Was a dull ache in the low abdomen. She had been into the clinic and was treated with Diflucan and some type of vaginal yeast cream which had no improvement in symptoms. She does have chronic symptoms of frequency, urgency, and incontinence and these hadn't changed at all. She had no fevers or chills, no sweats, no bowel changes, no new chest pain or shortness of breath. However she does have at baseline shortness of breath and had had a little bit of weight gain and pedal edema and so her primary doctor increased her Lasix on 529-40 mg daily and added Remeron to her medications to try to help her sleep. He also checked a urine which at the time showed enterococcus faecalis sensitive to ampicillin, nitrofurantoin, and penicillin. Was resistant to tetracycline and Levaquin. Sensitive to vancomycin. Because she had no new dysuria symptoms at that time they opted not to treat. Yesterday, the day of admission, the patient developed significant worsening of her pain. It went from being an ache to being just a very strong discomfort that she could not really do anything else and in the evening said there was no way she would be able to sleep so decided to come back into the emergency room. She also felt a little dizzy and weak at that time. On evaluation in the emergency room, she had a strongly positive urine with bacteria, white blood cells, red blood cells, leukocyte esterase positive, with some squamous epithelial cells. She had a mild hyperkalemia with potassium of 5.4 and a significant increase in her creatinine from 1.15-2.1. She was hypotensive and was admitted for treatment of her acute kidney injury on chronic kidney disease, complicated UTI, and hyperkalemia. CT of the abdomen and pelvis showed question of cellulitis in the abdominal wall questionable mild fat stranding around the urinary bladder. No acute intra-abdominal process identified and no renal stone. The patient is currently receiving IV fluids at 75 mL per hour. She feels much improved this morning. Pain is almost gone. Dizziness is gone. Recent medication changes included discontinuing digoxin, doxepin, and recent increase from 20 mg Lasix daily to 40 mg Lasix daily. She was started on 05 December on Detrol LA 2 mg by mouth daily and Remeron 7.5 mg by mouth at bedtime to try to improve her sleep. recent hospitalization for observation November 16 here at our facility for complicated UTI. Was treated with Rocephin at that time as well. Was discharged home on penicillin 500 mg 4 times a day. Sensitivities were essentially identical to current organism. Past medical history: #1 Coronary artery disease status post anterior wall myocardial infarction in 2003 treated with a drug-eluting stent. Cardiac catheter in 2008 unchanged with patent stent. In May 2015 patient had chest pain, was diverted to [facility], and angiogram there showed proximal LAD stenosis with stent placed in left main LAD. Had chronic total occlusion of distal circumflex and nonobstructive right coronary plaques. At that time ejection fraction was 35%. Patient was hospitalized again in January 2016 with NSTEMI at [facility] and was also found to have a new onset arrhythmia with junctional AV disassociation and frequent premature ventricular beats. Patient had a pacemaker and decreased EF ultimately led to defibrillator placement. Echo on 03/30/16 showed trans- esophageal ejection fraction 25%, moderate mitral regurgitation, significant left atrial dilation. Patient at that time was referred to the [facility] and has been following with cardiology there. Those records are not available at this time. Patient saw her varnisher plasticoater last on 18 of July and was changed from Plavix to Eliquis per her report. She is also continued on 81 mg aspirin daily. This change was made for improved stroke prevention given her low ejection fraction, atrial fibrillation history, and age increased risk of stroke. #2 history of breast cancer in the remote past. Treated with lumpectomy, lymph node biopsy, chemotherapy and radiation. She believes this was 2001. #3 asthma, currently well controlled. #4 hypothyroidism. #5 anxiety and depression currently active due to loss of and grieving. #6 history of cholecystectomy #7 history of irritable bowel syndrome. #8 CKD stage II. Baseline Cr 1.15. #9 Hx of GERD with Sanchez's esophagitis. #10 Chronic systolic CHF with EF 25% followed at [facility] as above. Social history: The patient lives at [facility], was living with her but he last week. She is a nonsmoker, 1 drink every couple of weeks. 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 [place]. Daughter Monisha is a pharmacist and helps her with meds. Son and daughter handling related issues. Family history: Noncontributory. vaginal area Pain Score (Numeric/FACES): 0 - Related Data Allergies/Adverse Reactions: Allergies Allergy/AdvReac Type Severity Reaction Status Date / Time ibuprofen Allergy Itching Verified 12/09/17 20:13 latex Allergy Itching Verified 12/09/17 20:13 Sulfa (Sulfonamide Allergy Stomach Verified 12/09/17 20:13 Antibiotics) Upset codeine AdvReac Insomnia Verified 12/09/17 20:13 erythromycin base AdvReac Stomach Verified 12/09/17 20:13 Upset Home Medications: Home Meds ALPRAZolam [Xanax] 0.25 tab PO TID PRN 06/25/14 [History] FLUoxetine [PROzac] 40 mg PO DAILY 06/25/14 [History] Furosemide [Lasix] 40 mg PO DAILY 06/25/14 [History] Lisinopril [Prinivil] 5 mg PO BID 06/25/14 [History] Omeprazole 20 mg PO BIDAC 06/25/14 [History] Levothyroxine 75 mcg PO ACBRK 06/26/14 [History] Cyanocobalamin (Vitamin B-12) [Vitamin B-12] 500 mcg SL WITHDINNER 05/12/15 [ History] Acetaminophen [Pain Reliever] 1,000 mg PO WITHDINNER 03/10/16 [History] Dicyclomine [Bentyl] 10 mg PO WITHDINNER 03/10/16 [History] Fexofenadine HCl [Aller-Ease] 180 mg PO DAILY 03/10/16 [History] Fluticasone Propionate 2 spray JUSTEN DAILY 03/24/16 [History] Fluticasone/Salmeterol [Advair Diskus 500-50] 1 puff INH BID 03/24/16 [History] Potassium Chloride 20 meq PO BIDMEALS 03/24/16 [History] atorvaSTATin [Lipitor] 40 mg PO DAILY 07/25/16 [History] Aspirin [Halfprin] 81 mg PO DAILY 01/17/17 [History] Acetaminophen [Tylenol Arthritis Pain] 1,300 mg PO BID 01/18/17 [History] Albuterol [Ventolin HFA] 2 puff INH Q2H PRN 07/23/17 [History] Apixaban [Eliquis] 2.5 mg PO BID 07/23/17 [History] Olopatadine [Pataday 0.2% Ophth Soln] 1 drop EYEBOTH DAILY 11/16/17 [History] Ranitidine HCl [Zantac] 150 mg PO BID 11/16/17 [History] Apixaban [Eliquis] 2.5 mg PO DAILY 12/09/17 [History] Lutein 15 mg PO DAILY 12/09/17 [History] Mag Hydrox/Al Hydrox/Simeth [Maalox Maximum Strength Susp] 30 ml PO TID PRN 08/27 [History] Mirtazapine [Remeron] 7.5 mg PO BEDTIME 12/09/17 [History] Tolterodine [Detrol LA 24 Hr] 2 mg PO DAILY 12/09/17 [History] Past Medical History HEENT History: Reports: Cataract Other HEENT History: Experiences sinus headaches. Cardiovascular History: Reports: Automatic Implantable Cardioverter Defibrillators, Heart Failure, High Cholesterol, Hypertension, [place], SOB on Exertion, Stents Other Cardiovascular History: 3 stents mitral valve failure Respiratory History: Reports: Asthma, SOB Gastrointestinal History: Reports: GERD, Hiatal Hernia Genitourinary History: Reports: UTI, Recurrent BINDER SELECTOR History: Reports: Musculoskeletal History: Reports: Fracture, Other (See Below) Other Musculoskeletal History: chronic pain in both knees; fx of below right hip Psychiatric History: Reports: Anxiety, Depression Endocrine/Metabolic History: Reports: Hypothyroidism Oncologic (Cancer) History: Reports: Breast Other Oncologic History: Left breast, lumpectomy and node removal Dermatologic History: Reports: Eczema, Other (See Below) Other Dermatologic History: long ago; itching rash - Infectious Disease History Infectious Disease History: Reports: Chicken Pox, Measles, Mumps - Past Surgical History HEENT Surgical History: Reports: Cataract Surgery, Naso-Sinus Surgery, Oral Surgery, Other (See Below) Cardiovascular Surgical History: Reports: Carotid Stents Respiratory Surgical History: Reports: None GI Surgical History: Reports: Appendectomy, Cholecystectomy, Colonoscopy Female Surgical History: Reports: Hysterectomy, Mastectomy, Other (See Below) Oncologic Surgical History: Reports: Mastectomy Social & Family History - Family History Family Medical History: Noncontributory - Tobacco Use Smoking Status *Q: Never Smoker Second Hand Smoke Exposure: No - Caffeine Use Caffeine Use: Reports: None Other Caffeine Use: Drinks decaf coffee and green tea. - Alcohol Use Days Per Week of Alcohol Use: 1 Number of Drinks Per Day: 1 Total Drinks Per Week: 1 Date of Last Drink: 11/30/17 - Recreational Drug Use Recreational Drug Use: No H&P Review of Systems - Review of Systems: Review Of Systems: ROS reveals no pertinent complaints other than HPI. Exam - Exam Exam: See Below - Vital Signs Vital Signs: Last Vital Signs Temp 36.6 C 12/10/17 04:44 Pulse 94 12/10/17 04:44 Resp 16 12/10/17 04:44 BP 107/64 12/10/17 04:44 Pulse Ox 98 12/10/17 04:44 Weight: 54.023 kg - Exam General: Alert, Oriented, Cooperative HEENT: PERRLA, Conjunctiva Clear, Mucosa Moist & Cherry Log, Posterior Pharynx Clear Neck: Supple Lungs: Clear to Auscultation, Normal Respiratory Effort Cardiovascular: Regular Rate, Regular Rhythm, Normal S1, Normal S2 GI/Abdominal Exam: Normal Bowel Sounds, Soft, Tender (mild suprapubic tenderness , moderate epigastric tenderness. No masses, no rebound, no guarding, no rigidity.) (Female) Exam: Deferred (Done in ER by Dr. Jones, normal per verbal report except atrophic vaginitis. Negative wet prep.) Back Exam: Normal Inspection Extremities: No Pedal Edema Psychiatric: Alert, Normal Affect, Normal Mood - Patient Data Lab Results Last 24 hrs: Laboratory Results - last 24 hr 12/09/17 12/09/17 12/09/17 Range/Units 20:00 20:00 20:05 WBC 12.9 H (4.5-12.0) X10-3/uL RBC 3.94 (3.23-5.20) x10(6)uL Hgb 12.3 (11.5-15.5) g/dL Hct 37.6 (30.0-51.3) % MCV 95.3 (80-96) fL MCH 31.1 (27.7-33.6) pg MCHC 32.6 (32.2-35.4) g/dL RDW 15.7 H (11.5-15.5) % Plt Count 190 (125-369) X10(3)uL MPV 9.8 (7.4-10.4) fL Neut % (Auto) 84.0 H (46-82) % Lymph % (Auto) 8.6 L (13-37) % [place] % (Auto) 6.4 (4-12) % Eos % (Auto) 1 (1.0-5.0) % Baso % (Auto) 0 (0-2) % Neut # (Auto) 10.8 H (1.6-8.3) # Lymph # (Auto) 1.1 (0.6-5.0) # [place] # (Auto) 0.8 (0.0-1.3) # Eos # (Auto) 0.1 (0.0-0.8) # Baso # (Auto) 0.1 (0.0-0.2) # Sodium 135 (135-145) mmol/L Potassium 5.4 H (3.5-5.3) mmol/L Chloride 99 L (100-110) mmol/L Carbon Dioxide 23 (21-32) mmol/L BUN 54 H D (7-18) mg/dL Creatinine 2.1 H* (0.55-1.02) mg/dL Est Cr Clr Drug Dosing 16.62 mL/min Estimated GFR (MDRD) 23 L (>60) BUN/Creatinine Ratio 25.7 H (9-20) Glucose 106 (80-116) mg/dL Calcium 9.2 (8.6-10.2) mg/dL Urine Color Yellow (YELLOW) Urine Appearance Turbid (CLEAR) Urine pH 5.0 (5.0-6.5) Ur Specific [place] 1.015 (1.010-1.025) Urine Protein 30 H (NEGATIVE) mg/dL Urine Glucose (UA) Normal (NEGATIVE) mg/dL Urine Ketones Negative (NEGATIVE) mg/dL Urine Occult Blood Large H (NEGATIVE) Urine Nitrite Negative (NEGATIVE) Urine Bilirubin Small H (NEGATIVE) Urine Urobilinogen 1 H (NEGATIVE) mg/dL Ur Leukocyte Esterase Large H (NEGATIVE) Urine RBC 10-20 H (0) Urine WBC Semi-packed H (0) Ur Squamous Epith Cells Occasional (NS,R,O) Urine Bacteria Many H (NS) 12/10/17 12/10/17 Range/Units 06:00 06:00 WBC 12.4 H (4.5-12.0) X10-3/uL RBC 3.85 (3.23-5.20) x10(6)uL Hgb 12.2 (11.5-15.5) g/dL Hct 36.8 (30.0-51.3) % MCV 95.5 (80-96) fL MCH 31.6 (27.7-33.6) pg MCHC 33.1 (32.2-35.4) g/dL RDW 15.8 H (11.5-15.5) % Plt Count 185 (125-369) X10(3)uL MPV 9.6 (7.4-10.4) fL Neut % (Auto) 84.5 H (46-82) % Lymph % (Auto) 7.5 L (13-37) % [place] % (Auto) 7.4 (4-12) % Eos % (Auto) 1 (1.0-5.0) % Baso % (Auto) 0 (0-2) % Neut # (Auto) 10.5 H (1.6-8.3) # Lymph # (Auto) 0.9 (0.6-5.0) # [place] # (Auto) 0.9 (0.0-1.3) # Eos # (Auto) 0.1 (0.0-0.8) # Baso # (Auto) 0.0 (0.0-0.2) # Sodium 136 (135-145) mmol/L Potassium 5.3 (3.5-5.3) mmol/L Chloride 101 (100-110) mmol/L Carbon Dioxide 24 (21-32) mmol/L BUN 53 H (7-18) mg/dL Creatinine 1.8 H (0.55-1.02) mg/dL Est Cr Clr Drug Dosing 19.39 mL/min Estimated GFR (MDRD) 27 L (>60) BUN/Creatinine Ratio 29.4 H (9-20) Glucose 123 H (80-116) mg/dL Calcium 8.9 (8.6-10.2) mg/dL Urine Color (YELLOW) Urine Appearance (CLEAR) Urine pH (5.0-6.5) Ur Specific [place] (1.010-1.025) Urine Protein (NEGATIVE) mg/dL Urine Glucose (UA) (NEGATIVE) mg/dL Urine Ketones (NEGATIVE) mg/dL Urine Occult Blood (NEGATIVE) Urine Nitrite (NEGATIVE) Urine Bilirubin (NEGATIVE) Urine Urobilinogen (NEGATIVE) mg/dL Ur Leukocyte Esterase (NEGATIVE) Urine RBC (0) Urine WBC (0) Ur Squamous Epith Cells (NS,R,O) Urine Bacteria (NS) Result Diagrams: 12/10/17 06:00 12/10/17 06:00 Charlie Results Last 24 hrs: Microbiology 12/09/17 20:51 Wet Prep - Final Vagina - Problem List (1) Complicated UTI (urinary tract infection) SNOMED Code(s): 65012275 ICD Code: N39.0 - URINARY TRACT INFECTION, SITE NOT SPECIFIED Status: Acute Current Visit: Yes Problem Details: Patient had previous history of enterococcal culture positive at the clinic last week with no treatment since. I agree with the decision to use Rocephin. I feel the patient would definitely benefit from 40-72 hours of IV therapy. Previous Cipro prescription in October and Keflex prescription in July. The decision not to treat in the clinic was very appropriate given the lack of urinary symptoms and the high incidence of asymptomatic bacteriuria in this age group. However at this point given the patient's lack of improvement I feel treatment is warranted. (2) Acute kidney injury superimposed on chronic kidney disease SNOMED Code(s): 15211340 ICD Code: N17.9 - ACUTE KIDNEY FAILURE, UNSPECIFIED; N18.9 - CHRONIC KIDNEY DISEASE, UNSPECIFIED Status: Acute Current Visit: Yes Problem Details: Likely secondary to recent increase in Lasix. Patient is currently receiving normal saline at 75 mL per hour and will continue this for 24 hours watching closely for signs of failure. Follow creatinine. (3) Hypovolemia due to dehydration SNOMED Code(s): 91219669 ICD Code: E86.0 - DEHYDRATION Status: Acute Current Visit: Yes Problem Details: continue fluids as above. Hold Lasix. (4) Systolic CHF, chronic SNOMED Code(s): 200733599, 919949267 ICD Code: I50.22 - CHRONIC SYSTOLIC (CONGESTIVE) HEART FAILURE Status: Acute Current Visit: Yes Problem Details: Currently quite dry, will monitor for signs of failure as we do fluids. (5) Hyperkalemia SNOMED Code(s): 10484387 ICD Code: E87.5 - HYPERKALEMIA Status: Acute Current Visit: No Problem Details: improving. Hold potassium supplements until Lasix restarted. (6) Grieving SNOMED Code(s): 131584602 ICD Code: F43.20 - ADJUSTMENT DISORDER, UNSPECIFIED Status: Acute Current Visit: Yes Problem Details: Patient just recently started on Remeron to help with sleep. I feel this is appropriate. Continue for the time being. (7) Polypharmacy SNOMED Code(s): 524624573 ICD Code: Z79.899 - OTHER CORRECTION (CURRENT) DRUG THERAPY Status: Acute Current Visit: Yes Problem Details: Discussed with the patient that she has so many medications likely she's using medications to treat side effects of other medications. She needs to work with her primary care provider to try to reduce the number of medications she is taking so as to prevent side effects. Also look at dose adjustments due to age. (8) DVT prophylaxis SNOMED Code(s): 573583083, 312822823 ICD Code: [id number] - Status: Acute Current Visit: Yes Problem Details: on Eliquis. Problem List Initiated/Reviewed/Updated: Yes Orders Last 24hrs: Active Orders 24 hr Category Date Time Status Patient Status [ADT] Routine ADT 12/09/17 21:11 Active Bedrest Bedside Commode [RC] ASDIRECTED Care 12/09/17 21:11 Active Height and Weight [RC] DAILY Care 12/09/17 21:11 Active Intake and Output [RC] 06,14,22 Care 12/09/17 21:12 Active Oxygen Therapy [RC] PRN Care 12/09/17 21:11 Active Vital Signs [RC] 08,16,00 Care 12/09/17 21:11 Active OT Evaluation and Treatment [CONS] Routine Cons 12/09/17 21:11 Active PT Evaluation and Treatment [CONS] Routine Cons 12/09/17 21:11 Active Abdomen Pelvis wo Cont [CT] Stat Exams 12/09/17 19:50 Taken CULTURE URINE [RM] Routine Lab 12/09/17 20:04 Received UA W/MICROSCOPIC [URIN] Stat Lab 12/09/17 20:05 Ordered WET PREP [MYC] Stat Lab 12/09/17 20:51 Ordered ALPRAZolam [Xanax] Med 12/09/17 21:42 Active 0.25 mg PO TID PRN Acetaminophen [Tylenol Arthritis Pain] Med 12/10/17 09:00 Active 1,300 mg PO BID Acetaminophen [Tylenol Extra Strength] Med 12/10/17 18:00 Active 1,000 mg PO WITHDINNER Albuterol [Ventolin HFA] Med 12/09/17 21:42 Active 0 gm INH Q2H PRN Alum Hydroxide/Mag Hydroxide [Mag-Al Susp] Med 12/09/17 21:59 Active 30 ml PO TID PRN Apixaban [Eliquis] Med 12/10/17 09:00 Active 2.5 mg PO BID Aspirin [Halfprin] Med 12/10/17 09:00 Active 81 mg PO DAILY Estrogens, Conjugated [Premarin Vaginal Crm] Med 12/09/17 21:15 Active 0.5 gm VAG DAILY FLUoxetine [PROzac] Med 12/10/17 09:00 Active 40 mg PO DAILY Famotidine [Pepcid] Med 12/10/17 09:00 Active 20 mg PO BID Ketotifen [Ketotifen 0.025% Ophth Soln] Med 12/10/17 09:00 Active 0 ml EYEBOTH BID Levothyroxine Med 12/10/17 07:30 Active 75 mcg PO ACBRK Lutein Med 12/10/17 09:00 Active 15 mg PO DAILY Mirtazapine [Remeron] Med 12/10/17 21:00 Active 7.5 mg PO BEDTIME Mometasone/Formoterol [Dulera 200-5 MCG] Med 12/09/17 22:00 Active 0 puff IH BID Pantoprazole [ProTONIX] Med 12/10/17 07:30 Active 40 mg PO ACBREAKFAST Sodium Chloride 0.9% [Normal Saline] 1,000 ml Med 12/09/17 21:00 Active IV ASDIRECTED Tolterodine [Detrol LA 24 Hr] Med 12/10/17 09:00 Active 2 mg PO DAILY Trolamine Salicylate/Aloe Vera [Aspercreme 10%] Med 12/10/17 04:22 Active 1 gm TOP Q1H PRN cefTRIAXone [Rocephin] Med 12/09/17 21:15 Active 1,000 mg IVPUSH Q24H Code Status [Resuscitation Status] Routine Resus Stat 12/10/17 01:43 Ordered Medication Orders Acetaminophen (Tylenol Extra Strength) 1,000 [facility] Acetaminophen (Tylenol Arthritis Pain) 1,300 mg PO BID [facility] Al Hydroxide/Mg Hydroxide (Mag-Al Susp) 30 ml PO TID PRN PRN Reason: Heartburn Albuterol (Ventolin Hfa) 0 gm INH Q2H PRN PRN Reason: Shortness of Breath Alprazolam (Xanax) 0.25 mg PO TID PRN PRN Reason: Anxiety Apixaban (Eliquis) 2.5 mg PO BID [facility] Aspirin (Halfprin) 81 mg PO DAILY [facility] Ceftriaxone Sodium (Rocephin) 1,000 mg IVPUSH Q24H [facility] Last Admin: 12/09/17 21:36 Dose: 1,000 mg Estrogens Conjugated (Premarin Vaginal Crm) 0.5 gm VAG DAILY [facility] Last Admin: 12/09/17 22:30 Dose: Famotidine (Pepcid) 20 mg PO BID [facility] Fluoxetine HCl (Prozac) 40 mg PO DAILY [facility] Sodium Chloride (Normal Saline) 1,000 mls @ 75 mls/hr IV ASDIRECTED [facility] Last Admin: 12/09/17 21:03 Dose: 75 mls/hr Ketotifen Fumarate (Ketotifen 0.025% Ophth Soln) 0 ml EYEBOTH BID [facility] Levothyroxine Sodium (Levothyroxine) 75 mcg PO ACBRK [facility] Last Admin: 12/10/17 06:45 Dose: 75 mcg Lutein (Lutein) 15 mg PO DAILY [facility] Mirtazapine (Remeron) 7.5 mg PO BEDTIME [facility] Mometasone Furoate/Formoterol Fumar (Dulera 200-5 Mcg) 0 puff IH BID [facility] Last Admin: 12/09/17 22:35 Dose: 2 puff Pantoprazole Sodium (Protonix) 40 mg PO ACBREAKFAST AMEE Last Admin: 12/10/17 06:45 Dose: 40 mg Tolterodine Tartrate (Detrol La 24 Hr) 2 mg PO DAILY [facility] Trolamine Salicylate (Aspercreme 10%) 1 gm TOP Q1H PRN PRN Reason: Pain Last Admin: 12/10/17 04:40 Dose: 1 gm Assessment/Plan Comment:: CODE STATUS discussed with the patient and her daughter on previous hospitalization in July 2017. Patient is a DNR/DNI. Would not want heroics to try to bring her back to life if she were to pass away. Would not want to be put on a breathing machine if we thought her breathing was so bad that she might if we didn't intervene. She would want to be allowed to pass peacefully. She is aware that the defibrillator will defibrillate her heart without CPR. Briefly revisited on admission and patient had no changes to this.
[2017-12-10] MEDS ORDERED: Apixaban 2.5 MG Tab PO SCH (09:00)
[2017-12-10] MEDS ORDERED: Tolterodine 2 MG Cap.ER PO SCH (09:00)
[2017-12-10] MEDS: Formoterol/Mometasone 200-5 MCG 8.8 GM Inhaler IH SCH ×3 (10:10→21:18)
[2017-12-10] MEDS: Acetaminophen 650 MG Tab.ER PO SCH ×3 (10:10→21:50)
[2017-12-10] MEDS: FLUoxetine 20 MG Cap PO SCH ×2 (10:11→10:33)
[2017-12-10] MEDS: Famotidine 20 MG Tab PO SCH ×3 (10:11→21:50)
[2017-12-10] MEDS: Aspirin 81 MG Tab.EC PO SCH ×2 (10:11→10:35)
[2017-12-10] MEDS: Sodium Chloride 0.9% 1,000 ML IV SCH ×2 (10:38→23:50)
[2017-12-10] MEDS: Apixaban 2.5 MG Tab PO SCH ×2 (11:50→21:49)
[2017-12-10] MEDS: ESTROGENS CONJUGATED VAG SCH (11:51)
[2017-12-10] MEDS: Ketotifen 0.025% Ophth Soln 5 ML Bottle EYEBOTH SCH ×2 (11:51→21:17)
[2017-12-10] MEDS: Albuterol 8 GM Inhaler INH PRN ×2 (11:55→16:16)
[2017-12-10] MEDS: ALPRAZolam 0.25 MG Tab PO PRN ×2 (15:42→21:51)
[2017-12-10] MEDS ORDERED: Acetaminophen 500 MG Tab PO SCH (18:00)
[2017-12-10] MEDS ORDERED: Mirtazapine 15 MG Tab PO SCH (21:00)
[2017-12-10] MEDS: Ondansetron 4 MG Tab.DIS PO PRN (21:17)
[2017-12-10] MEDS: cefTRIAXone 1,000 MG VIAL IVPUSH SCH (21:51)
[2017-12-11] MEDS: ALPRAZolam 0.25 MG Tab PO PRN ×2 (02:07→22:30)
[2017-12-11] MEDS: Pantoprazole 40 MG Tab.CR PO SCH (06:42)
[2017-12-11] MEDS: Levothyroxine 75 MCG Tab PO SCH (06:42)
[2017-12-11] MEDS: Formoterol/Mometasone 200-5 MCG 8.8 GM Inhaler IH SCH (09:25)
[2017-12-11] MEDS: Ketotifen 0.025% Ophth Soln 5 ML Bottle EYEBOTH SCH (09:25)
[2017-12-11] MEDS: Albuterol 8 GM Inhaler INH PRN ×2 (09:28→21:45)
--- NOTE | 2017-12-11 10:40 | PCM.PN ---
- General Info Date of Service: 12/11/17 Subjective Update: Patient continues to feel improved. She is drowsy this morning after having had some Xanax to help her sleep last night. No abdominal pain, vaginal/pelvic discomfort is completely gone. No nausea or vomiting. No diarrhea. No chest pain or shortness of breath. Her daughter Monisha is here with her today and reviewed labs and medications, treatment plan with her. - Patient Data Vitals - Most Recent: Last Vital Signs Temp 36.3 C 12/11/17 02:00 Pulse 94 12/11/17 02:00 Resp 18 12/11/17 02:00 BP 98/51 L 12/11/17 02:00 Pulse Ox 97 12/11/17 02:00 Weight - Most Recent: 56.744 kg I&O - Last 24 Hours: Intake & Output 12/10/17 12/11/17 12/11/17 22:59 06:59 14:59 Intake Total 665 800 Output Total 0 Balance 665 800 Lab Results Last 24 Hours: Laboratory Results - last 24 hr 12/11/17 12/11/17 Range/Units 06:35 06:35 WBC 11.8 (4.5-12.0) X10-3/uL RBC 4.00 (3.23-5.20) x10(6)uL Hgb 12.2 (11.5-15.5) g/dL Hct 37.8 (30.0-51.3) % MCV 94.5 (80-96) fL MCH 30.4 (27.7-33.6) pg MCHC 32.2 (32.2-35.4) g/dL RDW 15.9 H (11.5-15.5) % Plt Count 163 (125-369) X10(3)uL MPV 9.5 (7.4-10.4) fL Neut % (Auto) 80.2 (46-82) % Lymph % (Auto) 8.8 L (13-37) % Robeson % (Auto) 7.9 (4-12) % Eos % (Auto) 0 L (1.0-5.0) % Baso % (Auto) 3 H (0-2) % Neut # (Auto) 9.6 H (1.6-8.3) # Lymph # (Auto) 1.0 (0.6-5.0) # Robeson # (Auto) 0.9 (0.0-1.3) # Eos # (Auto) 0.0 (0.0-0.8) # Baso # (Auto) 0.3 H (0.0-0.2) # Sodium 135 (135-145) mmol/L Potassium 5.3 (3.5-5.3) mmol/L Chloride 104 (100-110) mmol/L Carbon Dioxide 22 (21-32) mmol/L BUN 59 H (7-18) mg/dL Creatinine 1.7 H (0.55-1.02) mg/dL Est Cr Clr Drug Dosing 20.53 mL/min Estimated GFR (MDRD) 29 L (>60) BUN/Creatinine Ratio 34.7 H (9-20) Glucose 114 (80-116) mg/dL Calcium 8.4 L (8.6-10.2) mg/dL Total Bilirubin 0.6 (0.1-1.3) mg/dL AST 306 H* D (5-25) IU/L ALT 550 H* D (12-36) U/L Alkaline Phosphatase 184 H (56-112) IU/L Total Protein 6.1 (6.0-8.0) g/dL Albumin 2.7 L (3.2-4.6) g/dL Globulin 3.4 g/dL Albumin/Globulin Ratio 0.8 Charlie Results Last 24 Hours: Microbiology 12/09/17 20:04 Urine Culture - Preliminary Urine, Voided Gram Positive Cocci Med Orders - Current: Current Medications Al Hydroxide/Mg Hydroxide (Mag-Al Susp) 30 ml PO TID PRN PRN Reason: Heartburn Last Admin: 12/10/17 11:55 Dose: 30 ml Albuterol (Ventolin Hfa) 0 gm INH Q2H PRN PRN Reason: Shortness of Breath Last Admin: 12/11/17 09:28 Dose: 2 puff Alprazolam (Xanax) 0.25 mg PO TID PRN PRN Reason: Anxiety Last Admin: 12/11/17 02:07 Dose: 0.25 mg Apixaban (Eliquis) 2.5 mg PO BID [facility] Aspirin (Halfprin) 81 mg PO DAILY [facility] Last Admin: 12/10/17 10:35 Dose: 81 mg Ceftriaxone Sodium (Rocephin) 1,000 mg IVPUSH Q24H [facility] Last Admin: 12/10/17 21:51 Dose: 1,000 mg Estrogens Conjugated (Premarin Vaginal Crm) 0.5 gm VAG BEDTIME [facility] Famotidine (Pepcid) 20 mg PO BID [facility] Last Admin: 12/10/17 21:50 Dose: 20 mg Fluoxetine HCl (Prozac) 40 mg PO DAILY [facility] Last Admin: 12/10/17 10:33 Dose: 40 mg Sodium Chloride (Normal Saline) 1,000 mls @ 75 mls/hr IV ASDIRECTED [facility] Last Admin: 12/10/17 23:50 Dose: 75 mls/hr Ketotifen Fumarate (Ketotifen 0.025% Ophth Soln) 0 ml EYEBOTH BID [facility] Last Admin: 12/11/17 09:25 Dose: 1 drop Levothyroxine Sodium (Levothyroxine) 75 mcg PO ACBRK [facility] Last Admin: 12/11/17 06:42 Dose: 75 mcg Lutein (Lutein) 15 mg PO BEDTIME [facility] Mirtazapine (Remeron) 7.5 mg PO BEDTIME [facility] Last Admin: 12/10/17 21:50 Dose: 7.5 mg Mometasone Furoate/Formoterol Fumar (Dulera 200-5 Mcg) 0 puff IH BID [facility] Ondansetron HCl (Zofran Odt) 4 mg PO Q6H PRN PRN Reason: Nausea/Vomiting Last Admin: 12/10/17 21:17 Dose: 4 mg Pantoprazole Sodium (Protonix) 40 mg PO ACBREAKFAST [facility] Last Admin: 12/11/17 06:42 Dose: 40 mg Tolterodine Tartrate (Detrol) 1 mg PO BID [facility] Trolamine Salicylate (Aspercreme 10%) 1 gm TOP Q1H PRN PRN Reason: Pain Last Admin: 12/10/17 04:40 Dose: 1 gm Discontinued Medications Acetaminophen (Tylenol Extra Strength) 1,000 mg PO WITHDINNER [facility] Last Admin: 12/10/17 17:40 Dose: 1,000 mg Acetaminophen (Tylenol Arthritis Pain) 1,300 mg PO BID [facility] Last Admin: 12/10/17 21:50 Dose: 1,300 mg Acetaminophen (Tylenol) 650 mg PO Q4H PRN PRN Reason: Pain Last Admin: 12/10/17 01:33 Dose: 650 mg Apixaban (Eliquis) 2.5 mg PO BID [facility] Last Admin: 12/10/17 21:49 Dose: 2.5 mg Apixaban (Eliquis) 2.5 mg PO DAILY [facility] Estrogens Conjugated (Premarin Vaginal Crm) 0.5 gm VAG DAILY [facility] Last Admin: 12/10/17 11:51 Dose: 1 applic Sodium Chloride (Normal Saline) 1,000 mls @ 75 mls/hr IV ASDIRECTED [facility] Ketotifen Fumarate (Ketotifen 0.025% Ophth Soln) 0 ml EYEBOTH BID [facility] Last Admin: 12/10/17 21:17 Dose: 1 drop Lutein (Lutein) 15 mg PO DAILY [facility] Last Admin: 12/10/17 14:20 Dose: Not Given Mometasone Furoate/Formoterol Fumar (Dulera 200-5 Mcg) 0 puff IH BID [facility] Last Admin: 12/10/17 21:18 Dose: 2 puff Tolterodine Tartrate (Detrol La 24 Hr) 2 mg PO DAILY [facility] Last Admin: 12/10/17 11:51 Dose: 2 mg - Exam General: Alert, Oriented, Cooperative, No Acute Distress HEENT: Pupils Equal, Pupils Reactive Neck: Supple Lungs: Clear to Auscultation, Normal Respiratory Effort Cardiovascular: Regular Rate, Regular Rhythm, No Murmurs GI/Abdominal Exam: Normal Bowel Sounds, Soft, Non-Tender, No Distention Extremities: Normal Inspection, No Pedal Edema Psy/Mental Status: Alert - Problem List & Annotations (1) Complicated UTI (urinary tract infection) SNOMED Code(s): 69359601 Code(s): N39.0 - URINARY TRACT INFECTION, SITE NOT SPECIFIED Status: Acute Current Visit: Yes Annotation/Comment:: Enterococcal culture positive at the clinic. Currently on Rocephin. Patient showed significant improvement. Culture is positive for gram-positive cocci so far with ID pending. Likely ready for discharge home tomorrow on either keflex or augmentin. Suggested using low dose preventive abx for suppression when she finishes her course of treatment. (2) Acute kidney injury superimposed on chronic kidney disease SNOMED Code(s): 05781032 Code(s): N17.9 - ACUTE KIDNEY FAILURE, UNSPECIFIED; N18.9 - CHRONIC KIDNEY DISEASE, UNSPECIFIED Status: Acute Current Visit: Yes Annotation/Comment: : D/C fluids but will not restart lasix yet. Monitor. (3) Hypovolemia due to dehydration SNOMED Code(s): 73964018 Code(s): E86.0 - DEHYDRATION Status: Acute Current Visit: Yes Annotation/Comment:: As above. Hold lasix. (4) Systolic CHF, chronic SNOMED Code(s): 940173666, 496398069 Code(s): I50.22 - CHRONIC SYSTOLIC (CONGESTIVE) HEART FAILURE Status: Acute Current Visit: Yes Annotation/Comment:: Monitor closely for signs of fluid overload. (5) Elevated liver enzymes SNOMED Code(s): 815798981 Code(s): R74.8 - ABNORMAL LEVELS OF OTHER SERUM ENZYMES Status: Acute Current Visit: Yes Annotation/Comment:: New finding on labs today. Patient was taking 3900 mg of tylenol scheduled at home. Suggest we hold tylenol, lipitor, and stop remeron. RUQ US now to evaluate for obstruction. Patient is asymptomatic with this. Last time checked were normal. Follow daily. (6) Hyperkalemia SNOMED Code(s): 53433321 Code(s): E87.5 - HYPERKALEMIA Status: Acute Current Visit: No Annotation/Comment:: Hold potassium supplements until Lasix restarted. (7) Grieving SNOMED Code(s): 220423255 Code(s): F43.20 - ADJUSTMENT DISORDER, UNSPECIFIED Status: Acute Current Visit: Yes Annotation/Comment:: D/C remeron at this time due to potential hepatic issues. (8) Polypharmacy SNOMED Code(s): 913401002 Code(s): Z79.899 - OTHER ALF (CURRENT) DRUG THERAPY Status: Acute Current Visit: Yes Annotation/Comment:: Discussed with the patient that she has so many medications likely she's using medications to treat side effects of other medications. She needs to work with her primary care provider to try to reduce the number of medications she is taking so as to prevent side effects. Also look at dose adjustments due to age. (9) DVT prophylaxis SNOMED Code(s): 357889580, 349486487 Code(s): SEM4315 - Status: Acute Current Visit: Yes Annotation/Comment :: on Eliquis. - Problem List Review Problem List Initiated/Reviewed/Updated: Yes - My Orders Last 24 Hours: My Active Orders 12/10/17 20:33 Ondansetron [Zofran ODT] 4 mg PO Q6H PRN 12/11/17 07:12 Abdomen Ltd [US] Routine 12/12/17 05:11 CBC WITH AUTO DIFF [HEME] AM COMPREHENSIVE METABOLIC PN,CMP [CHEM] AM - Plan Plan:: CODE STATUS discussed with the patient and her daughter on previous hospitalization in July 2017. Patient is a DNR/DNI. Would not want heroics to try to bring her back to life if she were to pass away. Would not want to be put on a breathing machine if we thought her breathing was so bad that she might if we didn't intervene. She would want to be allowed to pass peacefully. She is aware that the defibrillator will defibrillate her heart without CPR. Briefly revisited on admission and patient had no changes to this.
[2017-12-11] MEDS: Apixaban 5 MG Tab PO SCH (12:29)
--- NOTE | 2017-12-11 12:29 | US ---
INDICATION: Elevated liver enzymes. RIGHT UPPER QUADRANT/GALLBLADDER ULTRASOUND: Multiple ultrasonic images were obtained and reveal renal cortical thinning with the kidney measuring 9.8 x 4.2 cm on the right. No definite focal liver abnormality was identified. Liver echogenicity appeared to be fairly normal-fatty infiltration is not suggested. Common bile duct measures 8.1 mm which is normal for a post-cholecystectomy patient which is the case in this patient. Right pleural effusion is noted. The IVC was phasic. The pancreas as visualized appeared to be normal. No evidence of abdominal ascites was seen. IMPRESSION: 1. Right pleural effusion. 2. Renal cortical thinning on the right. 3. Normal appearing liver, no common bile duct dilatation allowing for post0- cholecystetomy. MTDD
[2017-12-11] MEDS: Aspirin 81 MG Tab.EC PO SCH (12:30)
[2017-12-11] MEDS: Tolterodine 2 MG Tab PO SCH (12:30)
[2017-12-11] MEDS: Famotidine 20 MG Tab PO SCH (12:31)
[2017-12-11] MEDS: FLUoxetine 20 MG Cap PO SCH (12:31)
[2017-12-11] MEDS: Acetaminophen 650 MG Tab.ER PO SCH (15:24)
[2017-12-11] MEDS: ESTROGENS CONJUGATED VAG SCH (15:24)
[2017-12-11] MEDS ORDERED: Ampicillin 1 GM in Sodium Chloride 0.9% 50 ML IV SCH (20:00)
[2017-12-11] MEDS ORDERED: ESTROGENS CONJUGATED VAG SCH (21:00)
[2017-12-11] MEDS: Ondansetron 4 MG Tab.DIS PO PRN (22:30)
[2017-12-12] MEDS: Tolterodine 2 MG Tab PO SCH ×2 (00:15→13:02)
[2017-12-12] MEDS: Formoterol/Mometasone 200-5 MCG 8.8 GM Inhaler IH SCH ×3 (00:17→22:23)
[2017-12-12] MEDS: Ketotifen 0.025% Ophth Soln 5 ML Bottle EYEBOTH SCH ×3 (00:18→22:23)
[2017-12-12] MEDS: Apixaban 5 MG Tab PO SCH ×2 (00:18→13:02)
[2017-12-12] MEDS: Ampicillin 1 GM in Sodium Chloride 0.9% 50 ML IV SCH ×2 (01:00→06:24)
[2017-12-12] MEDS: Sodium Chloride 0.9% 10 ML Syringe FLUSH PRN ×7 (01:00→20:09)
[2017-12-12] MEDS: cefTRIAXone 1,000 MG VIAL IVPUSH SCH (01:39)
[2017-12-12] MEDS: Ondansetron 4 MG Tab.DIS PO PRN (07:55)
[2017-12-12] MEDS: Levothyroxine 75 MCG Tab PO SCH (07:58)
[2017-12-12] MEDS: Pantoprazole 40 MG Tab.CR PO SCH (07:59)
[2017-12-12] MEDS ORDERED: Famotidine 20 MG Tab PO SCH (09:00)
[2017-12-12] MEDS ORDERED: Acetylcysteine 9,000 MG in Dextrose 5% in Water 200 ML IV ONE ×2 (09:30)
[2017-12-12] MEDS ORDERED: Acetylcysteine 20% 200 MG/ML 30 ML SDV IV ONE (09:39)
[2017-12-12] MEDS ORDERED: Morphine 10 MG/ML Syringe IVPUSH PRN (10:29)
[2017-12-12] MEDS ORDERED: Meropenem 1 GM SDV IVPUSH SCH (11:00)
--- NOTE | 2017-12-12 11:03 | PCM.PN ---
- General Info Date of Service: 12/12/17 Subjective Update: Patient is an 82-year-old female currently on hospital day #3 for complicated UTI with Enterococcus faecalis. Patient had a good night's rest overnight but has been complaining of increasing epigastric and abdominal pain. Liver enzymes were significantly elevated this morning at greater than 1000 AST and MALT. Creatinine is up at 2.0. Potassium is elevated at 5.9. The patient denies chest pain but she is feeling more short of breath and she feels like it's because her abdomen is so distended and pushing on her. She feels very uncomfortable in the epigastrium and complaints of heartburn. She feels a little nauseated. She has no appetite. Her abdomen is very uncomfortable. Daughter who is here with her says she is a little confused. She doesn't seem to be understanding what her daughter is telling her. - Patient Data Vitals - Most Recent: Last Vital Signs Temp 36.3 C 12/12/17 07:10 Pulse 87 12/12/17 07:10 Resp 18 12/12/17 07:10 BP 98/61 12/12/17 07:10 Pulse Ox 98 12/12/17 07:15 Weight - Most Recent: 57.153 kg I&O - Last 24 Hours: Intake & Output 12/11/17 12/12/17 12/12/17 22:59 06:59 14:59 Intake Total 350 Output Total 200 100 Balance -200 -100 350 Lab Results Last 24 Hours: Laboratory Results - last 24 hr 12/12/17 12/12/17 12/12/17 Range/Units 06:05 06:05 06:05 WBC 12.8 H (4.5-12.0) X10-3/uL RBC 4.13 (3.23-5.20) x10(6)uL Hgb 12.8 (11.5-15.5) g/dL Hct 38.8 (30.0-51.3) % MCV 93.9 (80-96) fL MCH 30.9 (27.7-33.6) pg MCHC 32.9 (32.2-35.4) g/dL RDW 15.6 H (11.5-15.5) % Plt Count 188 (125-369) X10(3)uL MPV 9.7 (7.4-10.4) fL Neut % (Auto) 84.3 H (46-82) % Lymph % (Auto) 5.2 L (13-37) % Cole % (Auto) 10.2 (4-12) % Eos % (Auto) 0 L (1.0-5.0) % Baso % (Auto) 0 (0-2) % Neut # (Auto) 10.8 H (1.6-8.3) # Lymph # (Auto) 0.7 (0.6-5.0) # Cole # (Auto) 1.3 (0.0-1.3) # Eos # (Auto) 0.0 (0.0-0.8) # Baso # (Auto) 0.0 (0.0-0.2) # ESR (0-20) mm/hr PT (8.7-11.1) INR (0.89-1.13) APTT (24.4-33.2) SECONDS Sodium 135 (135-145) mmol/L Potassium 5.9 H (3.5-5.3) mmol/L Chloride 101 (100-110) mmol/L Carbon Dioxide 20 L (21-32) mmol/L BUN 72 H D (7-18) mg/dL Creatinine 2.0 H* (0.55-1.02) mg/dL Est Cr Clr Drug Dosing 17.45 mL/min Estimated GFR (MDRD) 24 L (>60) BUN/Creatinine Ratio 36.0 H (9-20) Glucose 94 (80-116) mg/dL Calcium 9.1 (8.6-10.2) mg/dL Phosphorus 4.8 H (2.6-4.6) mg/dL Magnesium 3.0 H* (1.8-2.5) mg/dL Total Bilirubin 1.3 (0.1-1.3) mg/dL AST > 1000 H* D (5-25) IU/L ALT > 1000 H* D (12-36) U/L Alkaline Phosphatase 270 H (56-112) IU/L Lactate Dehydrogenase 1073 H (81-234) U/L C-Reactive Protein (0.5-0.9) mg/dL Total Protein 6.5 (6.0-8.0) g/dL Albumin 2.9 L (3.2-4.6) g/dL Globulin 3.6 g/dL Albumin/Globulin Ratio 0.8 Acetaminophen (10-30) ug/mL 12/12/17 12/12/17 12/12/17 Range/Units 06:05 06:05 09:20 WBC (4.5-12.0) X10-3/uL RBC (3.23-5.20) x10(6)uL Hgb (11.5-15.5) g/dL Hct (30.0-51.3) % MCV (80-96) fL MCH (27.7-33.6) pg MCHC (32.2-35.4) g/dL RDW (11.5-15.5) % Plt Count (125-369) X10(3)uL MPV (7.4-10.4) fL Neut % (Auto) (46-82) % Lymph % (Auto) (13-37) % Cole % (Auto) (4-12) % Eos % (Auto) (1.0-5.0) % Baso % (Auto) (0-2) % Neut # (Auto) (1.6-8.3) # Lymph # (Auto) (0.6-5.0) # Cole # (Auto) (0.0-1.3) # Eos # (Auto) (0.0-0.8) # Baso # (Auto) (0.0-0.2) # ESR 6 (0-20) mm/hr PT 18.2 H (8.7-11.1) INR 1.89 H (0.89-1.13) APTT 31.2 (24.4-33.2) SECONDS Sodium (135-145) mmol/L Potassium (3.5-5.3) mmol/L Chloride (100-110) mmol/L Carbon Dioxide (21-32) mmol/L BUN (7-18) mg/dL Creatinine (0.55-1.02) mg/dL Est Cr Clr Drug Dosing mL/min Estimated GFR (MDRD) (>60) BUN/Creatinine Ratio (9-20) Glucose (80-116) mg/dL Calcium (8.6-10.2) mg/dL Phosphorus (2.6-4.6) mg/dL Magnesium (1.8-2.5) mg/dL Total Bilirubin (0.1-1.3) mg/dL AST (5-25) IU/L ALT (12-36) U/L Alkaline Phosphatase (56-112) IU/L Lactate Dehydrogenase (81-234) U/L C-Reactive Protein 11.2 H* (0.5-0.9) mg/dL Total Protein (6.0-8.0) g/dL Albumin (3.2-4.6) g/dL Globulin g/dL Albumin/Globulin Ratio Acetaminophen (10-30) ug/mL 12/12/17 Range/Units 09:20 WBC (4.5-12.0) X10-3/uL RBC (3.23-5.20) x10(6)uL Hgb (11.5-15.5) g/dL Hct (30.0-51.3) % MCV (80-96) fL MCH (27.7-33.6) pg MCHC (32.2-35.4) g/dL RDW (11.5-15.5) % Plt Count (125-369) X10(3)uL MPV (7.4-10.4) fL Neut % (Auto) (46-82) % Lymph % (Auto) (13-37) % Cole % (Auto) (4-12) % Eos % (Auto) (1.0-5.0) % Baso % (Auto) (0-2) % Neut # (Auto) (1.6-8.3) # Lymph # (Auto) (0.6-5.0) # Cole # (Auto) (0.0-1.3) # Eos # (Auto) (0.0-0.8) # Baso # (Auto) (0.0-0.2) # ESR (0-20) mm/hr PT (8.7-11.1) INR (0.89-1.13) APTT (24.4-33.2) SECONDS Sodium (135-145) mmol/L Potassium (3.5-5.3) mmol/L Chloride (100-110) mmol/L Carbon Dioxide (21-32) mmol/L BUN (7-18) mg/dL Creatinine (0.55-1.02) mg/dL Est Cr Clr Drug Dosing mL/min Estimated GFR (MDRD) (>60) BUN/Creatinine Ratio (9-20) Glucose (80-116) mg/dL Calcium (8.6-10.2) mg/dL Phosphorus (2.6-4.6) mg/dL Magnesium (1.8-2.5) mg/dL Total Bilirubin (0.1-1.3) mg/dL AST (5-25) IU/L ALT (12-36) U/L Alkaline Phosphatase (56-112) IU/L Lactate Dehydrogenase (81-234) U/L C-Reactive Protein (0.5-0.9) mg/dL Total Protein (6.0-8.0) g/dL Albumin (3.2-4.6) g/dL Globulin g/dL Albumin/Globulin Ratio Acetaminophen < 2 L (10-30) ug/mL Charlie Results Last 24 Hours: Microbiology 12/09/17 20:04 Urine Culture - Final Urine, Voided Enterococcus Faecalis Med Orders - Current: Current Medications Al Hydroxide/Mg Hydroxide (Mag-Al Susp) 30 ml PO TID PRN PRN Reason: Heartburn Last Admin: 12/10/17 11:55 Dose: 30 ml Albuterol (Ventolin Hfa) 0 gm INH Q2H PRN PRN Reason: Shortness of Breath Last Admin: 12/11/17 21:45 Dose: 2 puff Alprazolam (Xanax) 0.25 mg PO TID PRN PRN Reason: Anxiety Last Admin: 12/11/17 22:30 Dose: 0.25 mg Apixaban (Eliquis) 2.5 mg PO BID [facility] Last Admin: 12/12/17 00:18 Dose: Not Given Aspirin (Halfprin) 81 mg PO DAILY [facility] Last Admin: 12/11/17 12:30 Dose: 81 mg Ceftriaxone Sodium (Rocephin) 1,000 mg IVPUSH Q24H [facility] Last Admin: 12/12/17 01:39 Dose: Not Given Estrogens Conjugated (Premarin Vaginal Crm) 0.5 gm VAG BEDTIME [facility] Last Admin: 12/12/17 00:19 Dose: Not Given Famotidine (Pepcid) 20 mg PO DAILY [facility] Fluoxetine HCl (Prozac) 40 mg PO DAILY [facility] Last Admin: 12/11/17 12:31 Dose: 40 mg Ampicillin Sodium 1 gm/ Sodium (Chloride) 50 mls @ 100 mls/hr IV Q6H [facility] Last Admin: 12/12/17 00:58 Dose: Not Given Ketotifen Fumarate (Ketotifen 0.025% Ophth Soln) 0 ml EYEBOTH BID [facility] Last Admin: 12/12/17 00:18 Dose: Not Given Levothyroxine Sodium (Levothyroxine) 75 mcg PO ACBRK [facility] Last Admin: 12/12/17 07:58 Dose: 75 mcg Lutein (Lutein) 15 mg PO BEDTIME [facility] Mirtazapine (Remeron) 7.5 mg PO BEDTIME [facility] Last Admin: 12/10/17 21:50 Dose: 7.5 mg Mometasone Furoate/Formoterol Fumar (Dulera 200-5 Mcg) 0 puff IH BID [facility] Last Admin: 12/12/17 00:17 Dose: Not Given Ondansetron HCl (Zofran Odt) 4 mg PO Q6H PRN PRN Reason: Nausea/Vomiting Last Admin: 12/12/17 07:55 Dose: 4 mg Pantoprazole Sodium (Protonix) 40 mg PO ACBREAKFAST [facility] Last Admin: 12/12/17 07:59 Dose: 40 mg Tolterodine Tartrate (Detrol) 1 mg PO BID [facility] Last Admin: 12/12/17 00:15 Dose: Not Given Trolamine Salicylate (Aspercreme 10%) 1 gm TOP Q1H PRN PRN Reason: Pain Last Admin: 12/10/17 04:40 Dose: 1 gm Discontinued Medications Acetaminophen (Tylenol Extra Strength) 1,000 mg PO WITHDINNER [facility] Last Admin: 12/10/17 17:40 Dose: 1,000 mg Acetaminophen (Tylenol Arthritis Pain) 1,300 mg PO BID [facility] Last Admin: 12/11/17 15:24 Dose: Not Given Acetaminophen (Tylenol) 650 mg PO Q4H PRN PRN Reason: Pain Last Admin: 12/10/17 01:33 Dose: 650 mg Apixaban (Eliquis) 2.5 mg PO BID [facility] Last Admin: 12/10/17 21:49 Dose: 2.5 mg Apixaban (Eliquis) 2.5 mg PO DAILY [facility] Estrogens Conjugated (Premarin Vaginal Crm) 0.5 gm VAG DAILY [facility] Last Admin: 12/11/17 15:24 Dose: Not Given Famotidine (Pepcid) 20 mg PO BID [facility] Last Admin: 12/11/17 12:31 Dose: 20 mg Sodium Chloride (Normal Saline) 1,000 mls @ 75 mls/hr IV ASDIRECTED [facility] Last Admin: 12/10/17 23:50 Dose: 75 mls/hr Sodium Chloride (Normal Saline) 1,000 mls @ 75 mls/hr IV ASDIRECTED [facility] Ketotifen Fumarate (Ketotifen 0.025% Ophth Soln) 0 ml EYEBOTH BID [facility] Last Admin: 12/10/17 21:17 Dose: 1 drop Lutein (Lutein) 15 mg PO DAILY [facility] Last Admin: 12/10/17 14:20 Dose: Not Given Mometasone Furoate/Formoterol Fumar (Dulera 200-5 Mcg) 0 puff IH BID [facility] Last Admin: 12/10/17 21:18 Dose: 2 puff Tolterodine Tartrate (Detrol La 24 Hr) 2 mg PO DAILY [facility] Last Admin: 12/10/17 11:51 Dose: 2 mg - Exam General: Alert, Cooperative, Mild Distress HEENT: Pupils Equal, Pupils Reactive Neck: Supple Lungs: Clear to Auscultation, Normal Respiratory Effort Cardiovascular: Regular Rate, Regular Rhythm, No Murmurs GI/Abdominal Exam: Other (Bowel sounds are hypoactive. The patient has inflammation of the liver which is palpable under the rib cage. She's tender in the epigastrium and throat the upper abdomen. Cannot feel the lower edge of the liver but she is quite distended. No guarding. No rigidity.) Back Exam: Normal Inspection Extremities: No Pedal Edema Psy/Mental Status: Anxious (uncomfortable.) - Problem List & Annotations (1) Acute hepatic failure Status: Acute Current Visit: Yes Annotation/Comment:: Patient is now showing signs of acute hepatic failure. Had a long discussion with the patient and her daughter Liudmila will transferred to [place] versus continued care here. At this point they prefer for her to stay here. Discussed poor prognosis. Greater than 50% mortality. Patient is not a candidate for liver transplant. Patient was transferred to ICU, checked further labs and INR is elevated at 1.89. Hold Eliquis. Hold all medications that affect the liver. Start acetylcysteine IV. Consult with Dr. Rouse from gastroenterology and he felt it was certainly possible that the Diflucan given on the could be the cause of this acute hepatic failure. The patient also was receiving marginal doses of Tylenol which with the new medication that affect the liver could have caused this. Continue supportive care. (2) Complicated UTI (urinary tract infection) SNOMED Code(s): 67090314 Code(s): N39.0 - URINARY TRACT INFECTION, SITE NOT SPECIFIED Status: Acute Current Visit: Yes Annotation/Comment:: Enterococcal culture positive. After consultation with Dr. Henriquez, patient's antibiotic spectrum was expanded to meropenem. (3) Acute kidney injury superimposed on chronic kidney disease SNOMED Code(s): 01760801 Code(s): N17.9 - ACUTE KIDNEY FAILURE, UNSPECIFIED; N18.9 - CHRONIC KIDNEY DISEASE, UNSPECIFIED Status: Acute Current Visit: Yes Annotation/Comment: : Secondary to #1. Patient receiving IV fluids with acetylcysteine so we'll continue to monitor. Recheck labs at 1400. (4) Systolic CHF, chronic SNOMED Code(s): 270401718, 811223789 Code(s): I50.22 - CHRONIC SYSTOLIC (CONGESTIVE) HEART FAILURE Status: Acute Current Visit: Yes Annotation/Comment:: Monitor closely for signs of fluid overload. (5) Elevated liver enzymes SNOMED Code(s): 144446731 Code(s): R74.8 - ABNORMAL LEVELS OF OTHER SERUM ENZYMES Status: Acute Current Visit: Yes Annotation/Comment:: New finding on labs today. Patient was taking 3900 mg of tylenol scheduled at home. Suggest we hold tylenol, lipitor, and stop remeron. RUQ US now to evaluate for obstruction. Patient is asymptomatic with this. Last time checked were normal. Follow daily. (6) Hyperkalemia SNOMED Code(s): 58901036 Code(s): E87.5 - HYPERKALEMIA Status: Acute Current Visit: No Annotation/Comment:: More severe. Likely a sign of renal failure. Recheck this afternoon. Can catheter placed to measure I's and O's accurately. On cardiac monitoring. (7) Grieving SNOMED Code(s): 460326948 Code(s): F43.20 - ADJUSTMENT DISORDER, UNSPECIFIED Status: Acute Current Visit: Yes Annotation/Comment:: D/C remeron at this time due to potential hepatic issues. (8) Polypharmacy SNOMED Code(s): 141021529 Code(s): Z79.899 - OTHER HEALTH CARE COACH (CURRENT) DRUG THERAPY Status: Acute Current Visit: Yes Annotation/Comment:: Discussed with the patient that she has so many medications likely she's using medications to treat side effects of other medications. She needs to work with her primary care provider to try to reduce the number of medications she is taking so as to prevent side effects. Also look at dose adjustments due to age. (9) DVT prophylaxis SNOMED Code(s): 662417911, 277615500 Code(s): LWX1086 - Status: Acute Current Visit: Yes Annotation/Comment :: Hold Eliquis as patient's liver failure has caused her INR to be significantly elevated. (10) Palliative care encounter SNOMED Code(s): 009113944 Code(s): Z51.5 - ENCOUNTER FOR PALLIATIVE CARE Status: Acute Current Visit: Yes Annotation/Comment:: Discussed with family using pain medications at this point to make the patient more comfortable. Her condition seems to be deteriorating rapidly and she is quite uncomfortable. Unfortunately pain medications will make her groggy and as they continue to add accumulative effect , they will not be cleared by her failing liver. They would like to opt for small doses and to treat her discomfort. - Problem List Review Problem List Initiated/Reviewed/Updated: Yes - My Orders Last 24 Hours: My Active Orders 12/11/17 10:44 Convert IV to Saline Lock [OM.PC] Stat 12/12/17 01:20 Sodium Chloride 0.9% [Saline Flush] 10 ml FLUSH ASDIRECTED PRN 12/12/17 09:00 Famotidine [Pepcid] 20 mg PO DAILY 12/12/17 09:20 AMMONIA, PLASMA Stat HEPATITIS PANEL (4) Stat 12/12/17 10:29 Morphine 0.5 mg IVPUSH Q1H PRN 12/12/17 10:30 Acetylcysteine [Acetadote 20%] 3,000 mg Dextrose 5% in Water 500 ml IV ONETIME Meropenem [Merrem] 1 gm IVPUSH Q8H 12/12/17 10:37 Urinary Catheter Assessment [RC] QSHIFT 12/12/17 10:45 Can Catheter Insertion [Insert Urinary Catheter] [OM.PC] Q24H 12/12/17 14:00 CBC WITH AUTO DIFF [HEME] Timed COMPREHENSIVE METABOLIC PN,CMP [CHEM] Timed INR,PT,PROTHROMBIN TIME [COAG] Timed 12/12/17 14:30 Acetylcysteine [Acetadote 20%] 6,000 mg Dextrose 5% in Water 1,000 ml IV ONETIME - Assessment Assessment:: ICU critical care time 65 minutes including chart review, discussing case with specialists and examining patient/discussing with family. - Plan Plan:: CODE STATUS discussed with the patient and her daughter on previous hospitalization in July 2017. Patient is a DNR/DNI. Would not want heroics to try to bring her back to life if she were to pass away. Would not want to be put on a breathing machine if we thought her breathing was so bad that she might if we didn't intervene. She would want to be allowed to pass peacefully. She is aware that the defibrillator will defibrillate her heart without CPR. Briefly revisited on admission and patient had no changes to this.
[2017-12-12] MEDS ORDERED: MEROPENEM IV SCH (11:30)
[2017-12-12] MEDS ORDERED: STERILE IV SCH (11:30)
[2017-12-12] MEDS ORDERED: WATER FOR INJECTION IV SCH (11:30)
[2017-12-12] MEDS: fentaNYL 100 MCG/2 ML SDV IVPUSH PRN ×4 (12:18→20:08)
[2017-12-12] MEDS ORDERED: Furosemide 40 MG/4 ML VIAL IVPUSH ONE ×2 (12:55→21:00)
[2017-12-12] MEDS: FLUoxetine 20 MG Cap PO SCH (13:14)
[2017-12-12] MEDS: Lidocaine 2% Jelly 5 ML Urojet MUCMEM PRN ×2 (13:38→17:30)
[2017-12-12] MEDS: Aspirin 81 MG Tab.EC PO SCH (14:09)
--- NOTE | 2017-12-12 14:59 | CT ---
INDICATION: Multiorgan failure. CT ABDOMEN AND PELVIS WITHOUT CONTRAST: Spiral 1.25 mm axial sections were obtained through the abdomen and pelvis without contrast, 12/12/2017, with sagittal and coronal reconstructions and were compared with 12/09/2017. Total exam DLP = 708.22 mGy-cm. There is a significant increase in the size of the pleural effusions seen previously, right much larger than left. Also, there is parenchymal change in the lower lobes, compatible with pneumonia and/or atelectasis. Therefore, bibasilar pneumonia and pleuritis cannot be excluded. A moderately large fixed hiatal hernia is again noted. The heart is enlarged with pacemaker leads producing hard beam artifact. The liver has a similar appearance to the previous examination. There is an increased amount of abdominal and pelvic ascites, compared with the previous examination. The exact etiology is not determined. The spleen appeared unremarkable. The pancreas appears to be somewhat fatty replaced. Calcifications are noted in the aorta, splenic artery, and superior mesenteric artery, as well as renal arteries. Renal cortical scarring is noted with renal fascial thickening and some thinning of the renal cortices. No definite renal mass was identified, although a cyst is likely of approximately 1.5 cm in the mid pole of the cortex of the left kidney and is likely a simple cyst of benign origin. No retroperitoneal masses were identified. Retroperitoneal lymphadenopathy is mild and is nonspecific. The appendix is not visualized, compatible with appendectomy. The uterus is absent, compatible with history of hysterectomy. The gallbladder is absent, compatible with cholecystectomy. No definite bowel obstruction or free air could be identified. Overall increased density of the subcutaneous tissues suggests a degree of anasarca. A Can catheter is noted in place in the urinary bladder. No additional mass lesions or organomegaly could be identified. Degenerative changes with disk disease with a grade 1 anterolisthesis noted at L4-5. Degenerative changes and disk disease are noted at lower thoracic levels. IMPRESSION: 1. Moderately large fixed hiatal hernia. 2. ASHD, cardiomegaly. 3. Bibasilar pleural parenchymal changes with large pleural effusion on the right, significantly increased in size, compared with a few days ago, and also significantly increased in size is the left pleural effusion, which is smaller than on the right. Bibasilar pneumonia and pleuritis may be present. 4. Post hysterectomy, cholecystectomy, and appendectomy. 5. ASD. 6. 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 7. Abdominal and pelvic ascites is increased, compared with the previous examination. 8. Overall soft tissue density is increased, suggesting the possibility of anasarca - correlate clinically. 9. Degenerative changes and disk disease with grade 1 anterolisthesis at L4-5. 10. No specific liver lesion is identified. A preliminary report was given by phone to Dr. Jaquelin Lylse soon after the examination was completed on 12/12/2017. JEFFD
--- NOTE | 2017-12-12 17:21 | PCM.SN ---
- Free Text/Narrative Note: Patient currently in the ICU for fulminant liver failure. Antibiotics changed to meropenem to give broader spectrum due to increased white count. tried a dose of Lasix for potassium 5.9 with elevated creatinine 2.2 with only about 100 mL of urine out. Patient is resting comfortably. INR is up to 2.2. Again reviewed current plan of care and poor prognosis with family at the bedside. Patient resting comfortably. We'll defer further labs until a.m. unless condition changes and will defer that to night covering physician. Blood pressure has held steady in the 90s systolics. Discussed with family FFP, central line placement, pressors, and at this point they feel risk outweighs the benefit. Continue current management. Critical care time 25 minutes.
[2017-12-12] MEDS ORDERED: Dextrose 5%-0.45% NaCl 1,000 ML IV SCH (21:15)
--- NOTE | 2017-12-12 21:52 | PCM.PN ---
- General Info Date of Service: 12/12/17 Admission Dx/Problem (Free Text): c/o ST at 140 As night time on-call physician, nursing asked me to review her new regular ST at 140 and dec'd SBP 86. Pt with only 100 cc urine output in previous 7.5h since 2 PM. Pt with known HF, ARF and hepatic failure. On PE there was minimal edema LE, nl skin turgor, lungs with dec'd BS b/l with slight exp wheeze and slight prolonged exp phase without rales or rhonchi, CV with regular tachy, 2/6 GRABIEL at LSB, no S3/S4, quiet precordium. CT abd/pelvis earlier in the day had shown ascites (flanks dull up 1/3 b/l with mild abd distention now), increasing b/l pleural effusions, and inc'd soft tissue density c/w anasarca. Pt currently on D5 at 64 ml/hr as part of her acetylcysteine administration. Labs from AM to PM today had shown decreasing bicarb, increasing creat (2.0 to 2.2) with evidence of decreasing tissue perfusion, c/w intravascular volume depletion despite excess fluid in both the pleural and peritoneal space. Additional labs and EKG ordered with plan of giving fluids and diuretics during the night trying to improve intravascular volume, renal perfusion and renal output. In discussion with son who is POA and granddaughter who is RN, no additional tests and interventions was desired. They requested that we change pt to comfort care. They know that pt will not survive, which they believe to be her wish. Patient lost her 1.5w ago, family in process of selling their home, pt has had multiple hospital admissions in the past year. Son states that patient "just wants to go home to be with dad." Pt changed to comfort care status and meds continued for comfort care. Other meds such as meropenem were d/c'ed. ASSESS: multisystem organ failure PLAN: change to comfort care as per family and POA and patient wishes - Patient Data Vitals - Most Recent: Last Vital Signs Temp 35.9 C 12/12/17 16:00 Pulse 87 12/12/17 07:10 Resp 16 12/12/17 16:00 BP 92/60 12/12/17 16:00 Pulse Ox 99 12/12/17 16:00 Weight - Most Recent: 57.606 kg I&O - Last 24 Hours: Intake & Output 12/12/17 12/12/17 12/12/17 06:59 14:59 22:59 Intake Total 1060 Output Total 100 450 Balance -100 610 Lab Results Last 24 Hours: Laboratory Results - last 24 hr 12/12/17 12/12/17 12/12/17 Range/Units 06:05 06:05 06:05 WBC 12.8 H (4.5-12.0) X10-3/uL Corrected WBC (4.5-12.0) X10(3) RBC 4.13 (3.23-5.20) x10(6)uL Hgb 12.8 (11.5-15.5) g/dL Hct 38.8 (30.0-51.3) % MCV 93.9 (80-96) fL MCH 30.9 (27.7-33.6) pg MCHC 32.9 (32.2-35.4) g/dL RDW 15.6 H (11.5-15.5) % Plt Count 188 (125-369) X10(3)uL MPV 9.7 (7.4-10.4) fL Neut % (Auto) 84.3 H (46-82) % Lymph % (Auto) 5.2 L (13-37) % [place] % (Auto) 10.2 (4-12) % Eos % (Auto) 0 L (1.0-5.0) % Baso % (Auto) 0 (0-2) % Neut # (Auto) 10.8 H (1.6-8.3) # Lymph # (Auto) 0.7 (0.6-5.0) # [place] # (Auto) 1.3 (0.0-1.3) # Eos # (Auto) 0.0 (0.0-0.8) # Baso # (Auto) 0.0 (0.0-0.2) # Add Manual Diff Neutrophils % (Manual) (46-82) % Lymphocytes % (Manual) (13-37) % Monocytes % (Manual) (4-12) % Nucleated RBCs (0-0) /100WBC Polychromasia ESR (0-20) mm/hr PT (8.7-11.1) INR (0.89-1.13) APTT (24.4-33.2) SECONDS Sodium 135 (135-145) mmol/L Potassium 5.9 H (3.5-5.3) mmol/L Chloride 101 (100-110) mmol/L Carbon Dioxide 20 L (21-32) mmol/L BUN 72 H D (7-18) mg/dL Creatinine 2.0 H* (0.55-1.02) mg/dL Est Cr Clr Drug Dosing 17.45 mL/min Estimated GFR (MDRD) 24 L (>60) BUN/Creatinine Ratio 36.0 H (9-20) Glucose 94 (80-116) mg/dL Calcium 9.1 (8.6-10.2) mg/dL Phosphorus 4.8 H (2.6-4.6) mg/dL Magnesium 3.0 H* (1.8-2.5) mg/dL Total Bilirubin 1.3 (0.1-1.3) mg/dL AST > 1000 H* D (5-25) IU/L ALT > 1000 H* D (12-36) U/L Alkaline Phosphatase 270 H (56-112) IU/L Ammonia Lactate Dehydrogenase 1073 H (81-234) U/L C-Reactive Protein (0.5-0.9) mg/dL Total Protein 6.5 (6.0-8.0) g/dL Albumin 2.9 L (3.2-4.6) g/dL Globulin 3.6 g/dL Albumin/Globulin Ratio 0.8 Acetaminophen (10-30) ug/mL 12/12/17 12/12/17 12/12/17 Range/Units 06:05 06:05 09:20 WBC (4.5-12.0) X10-3/uL Corrected WBC (4.5-12.0) X10(3) RBC (3.23-5.20) x10(6)uL Hgb (11.5-15.5) g/dL Hct (30.0-51.3) % MCV (80-96) fL MCH (27.7-33.6) pg MCHC (32.2-35.4) g/dL RDW (11.5-15.5) % Plt Count (125-369) X10(3)uL MPV (7.4-10.4) fL Neut % (Auto) (46-82) % Lymph % (Auto) (13-37) % [place] % (Auto) (4-12) % Eos % (Auto) (1.0-5.0) % Baso % (Auto) (0-2) % Neut # (Auto) (1.6-8.3) # Lymph # (Auto) (0.6-5.0) # [place] # (Auto) (0.0-1.3) # Eos # (Auto) (0.0-0.8) # Baso # (Auto) (0.0-0.2) # Add Manual Diff Neutrophils % (Manual) (46-82) % Lymphocytes % (Manual) (13-37) % Monocytes % (Manual) (4-12) % Nucleated RBCs (0-0) /100WBC Polychromasia ESR 6 (0-20) mm/hr PT 18.2 H (8.7-11.1) INR 1.89 H (0.89-1.13) APTT 31.2 (24.4-33.2) SECONDS Sodium (135-145) mmol/L Potassium (3.5-5.3) mmol/L Chloride (100-110) mmol/L Carbon Dioxide (21-32) mmol/L BUN (7-18) mg/dL Creatinine (0.55-1.02) mg/dL Est Cr Clr Drug Dosing mL/min Estimated GFR (MDRD) (>60) BUN/Creatinine Ratio (9-20) Glucose (80-116) mg/dL Calcium (8.6-10.2) mg/dL Phosphorus (2.6-4.6) mg/dL Magnesium (1.8-2.5) mg/dL Total Bilirubin (0.1-1.3) mg/dL AST (5-25) IU/L ALT (12-36) U/L Alkaline Phosphatase (56-112) IU/L Ammonia Lactate Dehydrogenase (81-234) U/L C-Reactive Protein 11.2 H* (0.5-0.9) mg/dL Total Protein (6.0-8.0) g/dL Albumin (3.2-4.6) g/dL Globulin g/dL Albumin/Globulin Ratio Acetaminophen (10-30) ug/mL 12/12/17 12/12/17 12/12/17 Range/Units 09:20 09:20 14:12 WBC 14.6 H (4.5-12.0) X10-3/uL Corrected WBC 14.4 H (4.5-12.0) X10(3) RBC 3.98 (3.23-5.20) x10(6)uL Hgb 12.3 (11.5-15.5) g/dL Hct 37.4 (30.0-51.3) % MCV 94.0 (80-96) fL MCH 30.9 (27.7-33.6) pg MCHC 32.9 (32.2-35.4) g/dL RDW 15.8 H (11.5-15.5) % Plt Count 156 (125-369) X10(3)uL MPV 9.9 (7.4-10.4) fL Neut % (Auto) (46-82) % Lymph % (Auto) (13-37) % [place] % (Auto) (4-12) % Eos % (Auto) (1.0-5.0) % Baso % (Auto) (0-2) % Neut # (Auto) (1.6-8.3) # Lymph # (Auto) (0.6-5.0) # [place] # (Auto) (0.0-1.3) # Eos # (Auto) (0.0-0.8) # Baso # (Auto) (0.0-0.2) # Add Manual Diff Yes Neutrophils % (Manual) 91 H (46-82) % Lymphocytes % (Manual) 6 L (13-37) % Monocytes % (Manual) 3 L (4-12) % Nucleated RBCs 2 H (0-0) /100WBC Polychromasia Few ESR (0-20) mm/hr PT (8.7-11.1) INR (0.89-1.13) APTT (24.4-33.2) SECONDS Sodium (135-145) mmol/L Potassium (3.5-5.3) mmol/L Chloride (100-110) mmol/L Carbon Dioxide (21-32) mmol/L BUN (7-18) mg/dL Creatinine (0.55-1.02) mg/dL Est Cr Clr Drug Dosing mL/min Estimated GFR (MDRD) (>60) BUN/Creatinine Ratio (9-20) Glucose (80-116) mg/dL Calcium (8.6-10.2) mg/dL Phosphorus (2.6-4.6) mg/dL Magnesium (1.8-2.5) mg/dL Total Bilirubin (0.1-1.3) mg/dL AST (5-25) IU/L ALT (12-36) U/L Alkaline Phosphatase (56-112) IU/L Ammonia 21 Lactate Dehydrogenase (81-234) U/L C-Reactive Protein (0.5-0.9) mg/dL Total Protein (6.0-8.0) g/dL Albumin (3.2-4.6) g/dL Globulin g/dL Albumin/Globulin Ratio Acetaminophen < 2 L (10-30) ug/mL 12/12/17 12/12/17 Range/Units 14:12 14:12 WBC (4.5-12.0) X10-3/uL Corrected WBC (4.5-12.0) X10(3) RBC (3.23-5.20) x10(6)uL Hgb (11.5-15.5) g/dL Hct (30.0-51.3) % MCV (80-96) fL MCH (27.7-33.6) pg MCHC (32.2-35.4) g/dL RDW (11.5-15.5) % Plt Count (125-369) X10(3)uL MPV (7.4-10.4) fL Neut % (Auto) (46-82) % Lymph % (Auto) (13-37) % [place] % (Auto) (4-12) % Eos % (Auto) (1.0-5.0) % Baso % (Auto) (0-2) % Neut # (Auto) (1.6-8.3) # Lymph # (Auto) (0.6-5.0) # [place] # (Auto) (0.0-1.3) # Eos # (Auto) (0.0-0.8) # Baso # (Auto) (0.0-0.2) # Add Manual Diff Neutrophils % (Manual) (46-82) % Lymphocytes % (Manual) (13-37) % Monocytes % (Manual) (4-12) % Nucleated RBCs (0-0) /100WBC Polychromasia ESR (0-20) mm/hr PT 21.1 H (8.7-11.1) INR 2.20 H (0.89-1.13) APTT (24.4-33.2) SECONDS Sodium 134 L (135-145) mmol/L Potassium 5.7 H (3.5-5.3) mmol/L Chloride 99 L (100-110) mmol/L Carbon Dioxide 16 L (21-32) mmol/L BUN 77 H (7-18) mg/dL Creatinine 2.2 H* (0.55-1.02) mg/dL Est Cr Clr Drug Dosing 15.86 mL/min Estimated GFR (MDRD) 21 L (>60) BUN/Creatinine Ratio 35.0 H (9-20) Glucose 133 H (80-116) mg/dL Calcium 8.7 (8.6-10.2) mg/dL Phosphorus (2.6-4.6) mg/dL Magnesium (1.8-2.5) mg/dL Total Bilirubin 1.3 (0.1-1.3) mg/dL AST > 1000 H* (5-25) IU/L ALT > 1000 H* (12-36) U/L Alkaline Phosphatase 240 H (56-112) IU/L Ammonia Lactate Dehydrogenase (81-234) U/L C-Reactive Protein (0.5-0.9) mg/dL Total Protein 6.0 (6.0-8.0) g/dL Albumin 2.5 L (3.2-4.6) g/dL Globulin 3.5 g/dL Albumin/Globulin Ratio 0.7 Acetaminophen (10-30) ug/mL Med Orders - Current: Current Medications Al Hydroxide/Mg Hydroxide (Mag-Al Susp) 30 ml PO TID PRN PRN Reason: Heartburn Last Admin: 12/10/17 11:55 Dose: 30 ml Albuterol (Ventolin Hfa) 0 gm INH Q2H PRN PRN Reason: Shortness of Breath Last Admin: 12/11/17 21:45 Dose: 2 puff Alprazolam (Xanax) 0.25 mg PO TID PRN PRN Reason: Anxiety Last Admin: 12/11/17 22:30 Dose: 0.25 mg Apixaban (Eliquis) 2.5 mg PO BID [facility] Last Admin: 12/12/17 13:02 Dose: Not Given Aspirin (Halfprin) 81 mg PO DAILY [facility] Last Admin: 12/12/17 14:09 Dose: Not Given Ceftriaxone Sodium (Rocephin) 1,000 mg IVPUSH Q24H [facility] Last Admin: 12/12/17 01:39 Dose: Not Given Estrogens Conjugated (Premarin Vaginal Crm) 0.5 gm VAG BEDTIME [facility] Last Admin: 12/12/17 00:19 Dose: Not Given Famotidine (Pepcid) 20 mg PO DAILY [facility] Last Admin: 12/12/17 13:14 Dose: 20 mg Fluoxetine HCl (Prozac) 40 mg PO DAILY [facility] Last Admin: 12/12/17 13:14 Dose: 40 mg Ampicillin Sodium 1 gm/ Sodium (Chloride) 50 mls @ 100 mls/hr IV Q6H [facility] Last Admin: 12/12/17 00:58 Dose: Not Given Ketotifen Fumarate (Ketotifen 0.025% Ophth Soln) 0 ml EYEBOTH BID [facility] Last Admin: 12/12/17 13:11 Dose: 1 drop Levothyroxine Sodium (Levothyroxine) 75 mcg PO ACBRK [facility] Last Admin: 12/12/17 07:58 Dose: 75 mcg Lutein (Lutein) 15 mg PO BEDTIME [facility] Mirtazapine (Remeron) 7.5 mg PO BEDTIME [facility] Last Admin: 12/10/17 21:50 Dose: 7.5 mg Mometasone Furoate/Formoterol Fumar (Dulera 200-5 Mcg) 0 puff IH BID [facility] Last Admin: 12/12/17 13:10 Dose: 2 puff Ondansetron HCl (Zofran Odt) 4 mg PO Q6H PRN PRN Reason: Nausea/Vomiting Last Admin: 12/12/17 07:55 Dose: 4 mg Pantoprazole Sodium (Protonix) 40 mg PO ACBREAKFAST [facility] Last Admin: 12/12/17 07:59 Dose: 40 mg Tolterodine Tartrate (Detrol) 1 mg PO BID [facility] Last Admin: 12/12/17 13:02 Dose: Not Given Trolamine Salicylate (Aspercreme 10%) 1 gm TOP Q1H PRN PRN Reason: Pain Last Admin: 12/10/17 04:40 Dose: 1 gm Discontinued Medications Acetaminophen (Tylenol Extra Strength) 1,000 mg PO WITHDINNER [facility] Last Admin: 12/10/17 17:40 Dose: 1,000 mg Acetaminophen (Tylenol Arthritis Pain) 1,300 mg PO BID [facility] Last Admin: 12/11/17 15:24 Dose: Not Given Acetaminophen (Tylenol) 650 mg PO Q4H PRN PRN Reason: Pain Last Admin: 12/10/17 01:33 Dose: 650 mg Apixaban (Eliquis) 2.5 mg PO BID [facility] Last Admin: 12/10/17 21:49 Dose: 2.5 mg Apixaban (Eliquis) 2.5 mg PO DAILY [facility] Estrogens Conjugated (Premarin Vaginal Crm) 0.5 gm VAG DAILY [facility] Last Admin: 12/11/17 15:24 Dose: Not Given Famotidine (Pepcid) 20 mg PO BID [facility] Last Admin: 12/11/17 12:31 Dose: 20 mg Sodium Chloride (Normal Saline) 1,000 mls @ 75 mls/hr IV ASDIRECTED [facility] Last Admin: 12/10/17 23:50 Dose: 75 mls/hr Sodium Chloride (Normal Saline) 1,000 mls @ 75 mls/hr IV ASDIRECTED [facility] Ketotifen Fumarate (Ketotifen 0.025% Ophth Soln) 0 ml EYEBOTH BID [facility] Last Admin: 12/10/17 21:17 Dose: 1 drop Lutein (Lutein) 15 mg PO DAILY [facility] Last Admin: 12/10/17 14:20 Dose: Not Given Mometasone Furoate/Formoterol Fumar (Dulera 200-5 Mcg) 0 puff IH BID [facility] Last Admin: 12/10/17 21:18 Dose: 2 puff Tolterodine Tartrate (Detrol La 24 Hr) 2 mg PO DAILY [facility] Last Admin: 12/10/17 11:51 Dose: 2 mg - Problem List Review Problem List Initiated/Reviewed/Updated: No - My Orders Last 24 Hours: My Active Orders 12/12/17 20:51 BASIC METABOLIC PANEL,BMP [CHEM] Routine BLOOD GAS VENOUS [BG] Routine CBC WITH AUTO DIFF [HEME] Routine LACTIC ACID [CHEM] Routine SEDIMENTATION RATE MANUAL [HEME] Routine TROPONIN I [CHEM] Routine 12/12/17 20:52 EKG 12 Lead [EK] Routine 12/12/17 20:53 EKG Documentation Completion [RC] ASDIRECTED 12/12/17 21:37 Comfort Measures [OM.PC] Routine 12/12/17 21:38 Transfer Patient (Change bed) [ADT] Routine - Assessment Assessment:: ICU critical care time 65 minutes including chart review, discussing case with specialists and examining patient/discussing with family. - Plan Plan:: CODE STATUS discussed with the patient and her daughter on previous hospitalization in July 2017. Patient is a DNR/DNI. Would not want heroics to try to bring her back to life if she were to pass away. Would not want to be put on a breathing machine if we thought her breathing was so bad that she might if we didn't intervene. She would want to be allowed to pass peacefully. She is aware that the defibrillator will defibrillate her heart without CPR. Briefly revisited on admission and patient had no changes to this.
[2017-12-12] MEDS ORDERED: MEROPENEM IVPUSH SCH (23:30)
[2017-12-12] MEDS ORDERED: STERILE IVPUSH SCH (23:30)
[2017-12-12] MEDS ORDERED: WATER FOR INJECTION IVPUSH SCH (23:30)
[2017-12-13] MEDS: fentaNYL 100 MCG/2 ML SDV IVPUSH PRN ×8 (00:42→22:13)
[2017-12-13 06:17] LABS: HBSAG SCREEN Negative (Negative); HEP A AB, IGM Negative (Negative); HEP B CORE AB, IGM Negative (Negative); HEP C VIRUS AB <0.1 s/co ratio (0.0-0.9)
[2017-12-13] MEDS: Sodium Chloride 0.9% 10 ML Syringe FLUSH PRN ×5 (07:26→20:40)
--- NOTE | 2017-12-13 08:49 | PCM.PN ---
- General Info Date of Service: 12/13/17 Subjective Update: Patient is an 82-year-old female admitted on 12/09/17 for complicated UTI. The patient went into acute liver failure yesterday and was transferred to the ICU for aggressive medical care while respecting the patient's DNR/DNI wishes and palliation. Please see note from covering physician overnight for further details. Essentially the patient's heart rate increased with sinus tachycardia, blood pressure dropped and continued to drop overnight to a low 60 systolic. After discussion with the family the patient and her family opted to discontinue aggressive medical care and moved to comfort cares. She went into acute renal failure with minimal urine output in the last 12 hours, anasarca, third spacing fluids in the abdomen and lungs, and family and patient would like to proceed with comfort measures and withdraw aggressive medical intervention. This morning patient is drowsy but arousable. She was quite uncomfortable in the lying position and when sitting up pain was about a 5 out of 10. She's been getting low doses of narcotics IV for pain management. She has no chest pain, she is mildly short of breath but is comfortable at rest and has no hypoxia. no tachypnea. She tried some by mouth water this morning and vomited up almost immediately. Functional Status: Reports: Pain Controlled - Patient Data Vitals - Most Recent: Last Vital Signs Temp 36.0 C 12/13/17 00:39 Pulse 142 H 12/13/17 00:39 Resp 19 12/13/17 00:39 BP 62/22 L 12/13/17 00:39 Pulse Ox 96 12/13/17 00:39 Weight - Most Recent: 57.153 kg I&O - Last 24 Hours: Intake & Output 12/12/17 12/13/17 12/13/17 22:59 06:59 14:59 Intake Total 603 582 Output Total 75 75 Balance 528 507 Lab Results Last 24 Hours: Laboratory Results - last 24 hr 12/12/17 12/12/17 12/12/17 Range/Units 06:05 06:05 06:05 WBC (4.5-12.0) X10-3/uL Corrected WBC (4.5-12.0) X10(3) RBC (3.23-5.20) x10(6)uL Hgb (11.5-15.5) g/dL Hct (30.0-51.3) % MCV (80-96) fL MCH (27.7-33.6) pg MCHC (32.2-35.4) g/dL RDW (11.5-15.5) % Plt Count (125-369) X10(3)uL MPV (7.4-10.4) fL Add Manual Diff Neutrophils % (Manual) (46-82) % Lymphocytes % (Manual) (13-37) % Monocytes % (Manual) (4-12) % Nucleated RBCs (0-0) /100WBC Polychromasia ESR 6 (0-20) mm/hr PT (8.7-11.1) INR (0.89-1.13) APTT (24.4-33.2) SECONDS Sodium (135-145) mmol/L Potassium (3.5-5.3) mmol/L Chloride (100-110) mmol/L Carbon Dioxide (21-32) mmol/L BUN (7-18) mg/dL Creatinine (0.55-1.02) mg/dL Est Cr Clr Drug Dosing mL/min Estimated GFR (MDRD) (>60) BUN/Creatinine Ratio (9-20) Glucose (80-116) mg/dL Calcium (8.6-10.2) mg/dL Phosphorus 4.8 H (2.6-4.6) mg/dL Magnesium 3.0 H* (1.8-2.5) mg/dL Total Bilirubin (0.1-1.3) mg/dL AST (5-25) IU/L ALT (12-36) U/L Alkaline Phosphatase (56-112) IU/L Ammonia Lactate Dehydrogenase 1073 H (81-234) U/L C-Reactive Protein 11.2 H* (0.5-0.9) mg/dL Total Protein (6.0-8.0) g/dL Albumin (3.2-4.6) g/dL Globulin g/dL Albumin/Globulin Ratio Acetaminophen (10-30) ug/mL Hepatitis A IgM Ab (Negative) Hep Bs Antigen (Negative) Hep B Core IgM Ab (Negative) Hepatitis C Antibody (0.0-0.9) s/co ratio 06/05/18 06/05/18 06/05/18 Range/Units 09:20 09:20 09:20 WBC (4.5-12.0) X10-3/uL Corrected WBC (4.5-12.0) X10(3) RBC (3.23-5.20) x10(6)uL Hgb (11.5-15.5) g/dL Hct (30.0-51.3) % MCV (80-96) fL MCH (27.7-33.6) pg MCHC (32.2-35.4) g/dL RDW (11.5-15.5) % Plt Count (125-369) X10(3)uL MPV (7.4-10.4) fL Add Manual Diff Neutrophils % (Manual) (46-82) % Lymphocytes % (Manual) (13-37) % Monocytes % (Manual) (4-12) % Nucleated RBCs (0-0) /100WBC Polychromasia ESR (0-20) mm/hr PT 18.2 H (8.7-11.1) INR 1.89 H (0.89-1.13) APTT 31.2 (24.4-33.2) SECONDS Sodium (135-145) mmol/L Potassium (3.5-5.3) mmol/L Chloride (100-110) mmol/L Carbon Dioxide (21-32) mmol/L BUN (7-18) mg/dL Creatinine (0.55-1.02) mg/dL Est Cr Clr Drug Dosing mL/min Estimated GFR (MDRD) (>60) BUN/Creatinine Ratio (9-20) Glucose (80-116) mg/dL Calcium (8.6-10.2) mg/dL Phosphorus (2.6-4.6) mg/dL Magnesium (1.8-2.5) mg/dL Total Bilirubin (0.1-1.3) mg/dL AST (5-25) IU/L ALT (12-36) U/L Alkaline Phosphatase (56-112) IU/L Ammonia 21 Lactate Dehydrogenase (81-234) U/L C-Reactive Protein (0.5-0.9) mg/dL Total Protein (6.0-8.0) g/dL Albumin (3.2-4.6) g/dL Globulin g/dL Albumin/Globulin Ratio Acetaminophen (10-30) ug/mL Hepatitis A IgM Ab Negative (Negative) Hep Bs Antigen Negative (Negative) Hep B Core IgM Ab Negative (Negative) Hepatitis C Antibody <0.1 (0.0-0.9) s/co ratio 12/12/17 12/12/17 12/12/17 Range/Units 09:20 14:12 14:12 WBC 14.6 H (4.5-12.0) X10-3/uL Corrected WBC 14.4 H (4.5-12.0) X10(3) RBC 3.98 (3.23-5.20) x10(6)uL Hgb 12.3 (11.5-15.5) g/dL Hct 37.4 (30.0-51.3) % MCV 94.0 (80-96) fL MCH 30.9 (27.7-33.6) pg MCHC 32.9 (32.2-35.4) g/dL RDW 15.8 H (11.5-15.5) % Plt Count 156 (125-369) X10(3)uL MPV 9.9 (7.4-10.4) fL Add Manual Diff Yes Neutrophils % (Manual) 91 H (46-82) % Lymphocytes % (Manual) 6 L (13-37) % Monocytes % (Manual) 3 L (4-12) % Nucleated RBCs 2 H (0-0) /100WBC Polychromasia Few ESR (0-20) mm/hr PT 21.1 H (8.7-11.1) INR 2.20 H (0.89-1.13) APTT (24.4-33.2) SECONDS Sodium (135-145) mmol/L Potassium (3.5-5.3) mmol/L Chloride (100-110) mmol/L Carbon Dioxide (21-32) mmol/L BUN (7-18) mg/dL Creatinine (0.55-1.02) mg/dL Est Cr Clr Drug Dosing mL/min Estimated GFR (MDRD) (>60) BUN/Creatinine Ratio (9-20) Glucose (80-116) mg/dL Calcium (8.6-10.2) mg/dL Phosphorus (2.6-4.6) mg/dL Magnesium (1.8-2.5) mg/dL Total Bilirubin (0.1-1.3) mg/dL AST (5-25) IU/L ALT (12-36) U/L Alkaline Phosphatase (56-112) IU/L Ammonia Lactate Dehydrogenase (81-234) U/L C-Reactive Protein (0.5-0.9) mg/dL Total Protein (6.0-8.0) g/dL Albumin (3.2-4.6) g/dL Globulin g/dL Albumin/Globulin Ratio Acetaminophen < 2 L (10-30) ug/mL Hepatitis A IgM Ab (Negative) Hep Bs Antigen (Negative) Hep B Core IgM Ab (Negative) Hepatitis C Antibody (0.0-0.9) s/co ratio 06//18 Range/Units 14:12 WBC (4.5-12.0) X10-3/uL Corrected WBC (4.5-12.0) X10(3) RBC (3.23-5.20) x10(6)uL Hgb (11.5-15.5) g/dL Hct (30.0-51.3) % MCV (80-96) fL MCH (27.7-33.6) pg MCHC (32.2-35.4) g/dL RDW (11.5-15.5) % Plt Count (125-369) X10(3)uL MPV (7.4-10.4) fL Add Manual Diff Neutrophils % (Manual) (46-82) % Lymphocytes % (Manual) (13-37) % Monocytes % (Manual) (4-12) % Nucleated RBCs (0-0) /100WBC Polychromasia ESR (0-20) mm/hr PT (8.7-11.1) INR (0.89-1.13) APTT (24.4-33.2) SECONDS Sodium 134 L (135-145) mmol/L Potassium 5.7 H (3.5-5.3) mmol/L Chloride 99 L (100-110) mmol/L Carbon Dioxide 16 L (21-32) mmol/L BUN 77 H (7-18) mg/dL Creatinine 2.2 H* (0.55-1.02) mg/dL Est Cr Clr Drug Dosing 15.86 mL/min Estimated GFR (MDRD) 21 L (>60) BUN/Creatinine Ratio 35.0 H (9-20) Glucose 133 H (80-116) mg/dL Calcium 8.7 (8.6-10.2) mg/dL Phosphorus (2.6-4.6) mg/dL Magnesium (1.8-2.5) mg/dL Total Bilirubin 1.3 (0.1-1.3) mg/dL AST > 1000 H* (5-25) IU/L ALT > 1000 H* (12-36) U/L Alkaline Phosphatase 240 H (56-112) IU/L Ammonia Lactate Dehydrogenase (81-234) U/L C-Reactive Protein (0.5-0.9) mg/dL Total Protein 6.0 (6.0-8.0) g/dL Albumin 2.5 L (3.2-4.6) g/dL Globulin 3.5 g/dL Albumin/Globulin Ratio 0.7 Acetaminophen (10-30) ug/mL Hepatitis A IgM Ab (Negative) Hep Bs Antigen (Negative) Hep B Core IgM Ab (Negative) Hepatitis C Antibody (0.0-0.9) s/co ratio Med Orders - Current: Current Medications Al Hydroxide/Mg Hydroxide (Mag-Al Susp) 30 ml PO TID PRN PRN Reason: Heartburn Last Admin: 12/10/17 11:55 Dose: 30 ml Albuterol (Ventolin Hfa) 0 gm INH Q2H PRN PRN Reason: Shortness of Breath Last Admin: 12/11/17 21:45 Dose: 2 puff Alprazolam (Xanax) 0.25 mg PO TID PRN PRN Reason: Anxiety Last Admin: 12/11/17 22:30 Dose: 0.25 mg Apixaban (Eliquis) 2.5 mg PO BID [facility] Last Admin: 12/12/17 13:02 Dose: Not Given Aspirin (Halfprin) 81 mg PO DAILY [facility] Last Admin: 12/12/17 14:09 Dose: Not Given Ceftriaxone Sodium (Rocephin) 1,000 mg IVPUSH Q24H [facility] Last Admin: 12/12/17 01:39 Dose: Not Given Estrogens Conjugated (Premarin Vaginal Crm) 0.5 gm VAG BEDTIME [facility] Last Admin: 12/12/17 00:19 Dose: Not Given Famotidine (Pepcid) 20 mg PO DAILY [facility] Last Admin: 12/12/17 13:14 Dose: 20 mg Fluoxetine HCl (Prozac) 40 mg PO DAILY [facility] Last Admin: 12/12/17 13:14 Dose: 40 mg Ampicillin Sodium 1 gm/ Sodium (Chloride) 50 mls @ 100 mls/hr IV Q6H [facility] Last Admin: 12/12/17 00:58 Dose: Not Given Ketotifen Fumarate (Ketotifen 0.025% Ophth Soln) 0 ml EYEBOTH BID [facility] Last Admin: 12/12/17 22:23 Dose: Not Given Levothyroxine Sodium (Levothyroxine) 75 mcg PO ACBRK [facility] Last Admin: 12/12/17 07:58 Dose: 75 mcg Lutein (Lutein) 15 mg PO BEDTIME [facility] Mirtazapine (Remeron) 7.5 mg PO BEDTIME [facility] Last Admin: 12/10/17 21:50 Dose: 7.5 mg Mometasone Furoate/Formoterol Fumar (Dulera 200-5 Mcg) 0 puff IH BID [facility] Last Admin: 12/12/17 22:23 Dose: Not Given Ondansetron HCl (Zofran Odt) 4 mg PO Q6H PRN PRN Reason: Nausea/Vomiting Last Admin: 12/12/17 07:55 Dose: 4 mg Pantoprazole Sodium (Protonix) 40 mg PO ACBREAKFAST [facility] Last Admin: 12/12/17 07:59 Dose: 40 mg Tolterodine Tartrate (Detrol) 1 mg PO BID [facility] Last Admin: 12/12/17 13:02 Dose: Not Given Trolamine Salicylate (Aspercreme 10%) 1 gm TOP Q1H PRN PRN Reason: Pain Last Admin: 12/10/17 04:40 Dose: 1 gm Discontinued Medications Acetaminophen (Tylenol Extra Strength) 1,000 mg PO WITHDINNER [facility] Last Admin: 12/10/17 17:40 Dose: 1,000 mg Acetaminophen (Tylenol Arthritis Pain) 1,300 mg PO BID [facility] Last Admin: 12/11/17 15:24 Dose: Not Given Acetaminophen (Tylenol) 650 mg PO Q4H PRN PRN Reason: Pain Last Admin: 12/10/17 01:33 Dose: 650 mg Apixaban (Eliquis) 2.5 mg PO BID [facility] Last Admin: 12/10/17 21:49 Dose: 2.5 mg Apixaban (Eliquis) 2.5 mg PO DAILY [facility] Estrogens Conjugated (Premarin Vaginal Crm) 0.5 gm VAG DAILY [facility] Last Admin: 12/11/17 15:24 Dose: Not Given Famotidine (Pepcid) 20 mg PO BID [facility] Last Admin: 12/11/17 12:31 Dose: 20 mg Sodium Chloride (Normal Saline) 1,000 mls @ 75 mls/hr IV ASDIRECTED [facility] Last Admin: 12/10/17 23:50 Dose: 75 mls/hr Sodium Chloride (Normal Saline) 1,000 mls @ 75 mls/hr IV ASDIRECTED [facility] Ketotifen Fumarate (Ketotifen 0.025% Ophth Soln) 0 ml EYEBOTH BID [facility] Last Admin: 12/10/17 21:17 Dose: 1 drop Lutein (Lutein) 15 mg PO DAILY [facility] Last Admin: 12/10/17 14:20 Dose: Not Given Mometasone Furoate/Formoterol Fumar (Dulera 200-5 Mcg) 0 puff IH BID [facility] Last Admin: 12/10/17 21:18 Dose: 2 puff Tolterodine Tartrate (Detrol La 24 Hr) 2 mg PO DAILY [facility] Last Admin: 12/10/17 11:51 Dose: 2 mg - Exam General: Sedated (but rousable.) HEENT: Pupils Equal, Pupils Reactive Neck: Supple Lungs: Decreased Breath Sounds, Crackles Cardiovascular: Regular Rate, Regular Rhythm, No Murmurs GI/Abdominal Exam: Distended (Abdomen is somewhat rigid and distended, with significant tenderness and hepatomegaly in the upper abdomen. No bowel sounds.) Extremities: Other (Sutures anasarca throughout the dependent portions of her arms and back legs and trace pedal edema.) - Problem List & Annotations (1) Acute hepatic failure Status: Acute Current Visit: Yes Annotation/Comment:: See notes from yesterday. Patient completed treatment with N-acetylcysteine. Family has opted to move to comfort cares. The suspected cause of acute hepatic failure is idiosyncratic reaction to Diflucan coupled with chronic use of 3900 mg Tylenol daily. Anticipate within 24 hours. (2) Complicated UTI (urinary tract infection) SNOMED Code(s): 04762108 Code(s): N39.0 - URINARY TRACT INFECTION, SITE NOT SPECIFIED Status: Acute Current Visit: Yes Annotation/Comment:: Antibiotics discontinued per family 's request for comfort measures. (3) Acute kidney injury superimposed on chronic kidney disease SNOMED Code(s): 34715009 Code(s): N17.9 - ACUTE KIDNEY FAILURE, UNSPECIFIED; N18.9 - CHRONIC KIDNEY DISEASE, UNSPECIFIED Status: Acute Current Visit: Yes Annotation/Comment: : Now in complete renal failure with no urine output. Continue Can catheter for comfort. Patient has significant third spacing with intravascular volume depletion. No fluids at this time. (4) Systolic CHF, chronic SNOMED Code(s): 950874390, 700645406 Code(s): I50.22 - CHRONIC SYSTOLIC (CONGESTIVE) HEART FAILURE Status: Acute Current Visit: Yes Annotation/Comment:: See above. (5) Elevated liver enzymes SNOMED Code(s): 526420498 Code(s): R74.8 - ABNORMAL LEVELS OF OTHER SERUM ENZYMES Status: Acute Current Visit: Yes Annotation/Comment:: See above. (6) Hyperkalemia SNOMED Code(s): 95883518 Code(s): E87.5 - HYPERKALEMIA Status: Acute Current Visit: No Annotation/Comment:: Likely worsened due to ARF. (7) Polypharmacy SNOMED Code(s): 818712150 Code(s): Z79.899 - OTHER [employer]URE [employer] INSPECTOR (CURRENT) DRUG THERAPY Status: Acute Current Visit: Yes Annotation/Comment:: Discussed with the patient that she has so many medications likely she's using medications to treat side effects of other medications. She needs to work with her primary care provider to try to reduce the number of medications she is taking so as to prevent side effects. Also look at dose adjustments due to age. (8) Palliative care encounter SNOMED Code(s): 109374948 Code(s): Z51.5 - ENCOUNTER FOR PALLIATIVE CARE Status: Acute Current Visit: Yes Annotation/Comment:: On comfort cares. Narcotics for pain and SOB , ice chips for comfort, anticipate patient imminent within 24 hours. - Problem List Review Problem List Initiated/Reviewed/Updated: Yes - My Orders Last 24 Hours: My Active Orders 12/12/17 10:37 Urinary Catheter Assessment [RC] QSHIFT 12/12/17 10:45 Can Catheter Insertion [Insert Urinary Catheter] [OM.PC] Q24H 12/12/17 12:05 fentaNYL [Sublimaze] 25 mcg IVPUSH Q30M PRN 12/12/17 12:52 Lidocaine 2% [Xylocaine 2% Jelly] 5 ml MUCMEM Q4H PRN - Plan Plan:: CODE STATUS discussed with the patient and her daughter on previous hospitalization in July 2017. Patient is a DNR/DNI. Would not want heroics to try to bring her back to life if she were to pass away. Would not want to be put on a breathing machine if we thought her breathing was so bad that she might if we didn't intervene. She would want to be allowed to pass peacefully. She is aware that the defibrillator will defibrillate her heart without CPR. Briefly revisited on admission and patient had no changes to this.
[2017-12-13] MEDS: Ketotifen 0.025% Ophth Soln 5 ML Bottle EYEBOTH SCH ×2 (11:18→20:45)
--- NOTE | 2017-12-13 13:50 | ER ---
DATE SEEN: 12/09/2017 ADDENDUM: The patient's nurse handed me a note that said the patient had Enterococcus faecalis on the urinary culture report. Rocephin is not listed as the drug of choice, but ampicillin is. Rocephin was discontinued, and Ampicillin 1 g q.6 hours IV was started and left with the nurse. /[id number] HUMBERTO/JOVANI
[2017-12-13 15:31] VITALS: BP 89/53
--- NOTE | 2017-12-14 08:16 | PCM.DCSUM1 ---
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 Possibly idiosyncratic reaction to Diflucan. Possible combination of drugs with chronic use of Tylenol, Remeron, antibiotics given in the hospital, or other outpatient medication. Consults: [facility] by phone Procedures: Patient had 2 abdomen and pelvis CTs during her hospital stay. She had 1 right upper quadrant ultrasound to evaluate elevated LFTs. History of present illness: The patient was an 82-year-old female who admin doctoring over the last month to try to reduce polypharmacy and about a week prior to admission had developed severe vaginal pain. She was treated as an outpatient with a 1 time dose of Diflucan for presumptive yeast infection, also worked up for possible urine infection although she had no symptoms of dysuria. Urine culture showed Enterococcus faecalis broadly sensitive which was appropriately not treated due to lack of symptoms and thought to be asymptomatic bacteriuria. However the patient's vaginal pain increased significantly on the night prior to admission and she presented to the emergency department and was admitted for presumptive complicated UTI and started on Rocephin for treatment. Hospital course: The patient initially showed significant improvement and did very well. Symptoms completely resolved by hospital day #2 and she continued on IV antibiotic therapy until culture results came back at which time she was switched to IV ampicillin with the plan to discharge on either Keflex or Augmentin for longer term treatment and then suppressive therapy following because this was her third positive culture with this organism this month. The patient's LFTs had not been checked on admission or in the clinic since October and on hospital day #3 routine LFT check showed an elevated AST of 306 and ALT of 550. Alkaline phosphatase was 184. Bilirubin was normal. The patient was asymptomatic and right upper quadrant ultrasound was performed which was negative. All the patient's potential etiology medications like Tylenol and statins were discontinued and liver enzymes were checked the following morning on 12/12. At that point liver enzymes had risen to greater than 1000 ALT & AST with an alkaline phosphatase of 207 and a total bili of 1.3. The patient started to feel nauseated and have a feeling of distention and discomfort in the upper abdomen. For the next couple of hours pain increased significantly. Discussion was held with the family about whether or not to transfer to [place] and after extensive discussion of the risks and benefits of transfer versus staying locally where she could be supported by family, not to mention the long- term prognosis of acute liver failure regardless of the cause with significant mortality, the decision was made by the family to keep the patient locally but pursue aggressive care up to the point of . The patient was started on meropenem. I consulted with gastroenterology in [place] and please see ICU notes for further details as to his recommendations. At that point with a medication review it was thought that the Diflucan in the outpatient setting was suggestive with timing to have caused this idiosyncratic reaction in the liver. The patient's blood pressure started to drop. Central line placement and pressors were discussed at length but given the increased INR from liver failure and the patient's history of using Eliquis, family opted not to place a central line and the patient was in agreement with this. Patient had been started on N-acetylcysteine IV for treatment of presumptive liver failure with scheduled Tylenol 3600 mg in the outpatient setting and was tolerating that well. A clinton catheter was placed and over the next 8 hours urine output dropped significantly. With following labs INR continued to increase, creatinine increased, potassium had increased and the patient was given 1 dose IV Lasix with almost no output. Again discussed prognosis and potential transfer with the family and they opted at that point to continue care locally. Later that evening the patient had an episode of tachycardia and hypotension and the decision was made in discussion with the emergency room physician and the family to opt for comfort cares about midnight on the evening of 12/12-am of . Pain management was continued. Patient was kept comfortable until she the evening of 12/13/2017 at approximately 2300. On retrospective chart review it was found that the patient had received 4250 mg Tylenol orally on 12/10/17. This was due to one PRN dose given at 0130 of 650 mg since she had missed her evening dose of her scheduled Tylenol and couldn't sleep without it. The patient's scheduled Tylenol of 1300 mg twice a day Tylenol arthritis and 1000 mg daily with supper was then given later in the day. Because the patient's liver enzymes were already elevated at 0600 on 12/11 unlikely this was the etiology of her liver failure but could have been a contributing factor to have this Tylenol dose on top of an already injured liver. Cause of : Acute hepatic failure secondary to medication toxicity, possibly idiosyncratic reaction to Diflucan, possibly cumulative Tylenol effect , most likely combination of multiple medications causing liver injury. Secondary to polypharmacy. Contributing diagnoses but not the cause of : Acute renal failure secondary to acute hepatic failure superimposed on chronic kidney disease. Chronic systolic and diastolic congestive heart failure. Date of : 12/13/2017 Time of : 2309 Disposition: Patient taken to [facility] in [place], [place]. - Discharge Data Discharge Date: 12/13/17 (2309) Discharge Disposition: 20 Condition: - Discharge Diagnosis/Problem(s) (1) Acute hepatic failure Status: Acute Problem Details: Immediate cause of . (2) Complicated UTI (urinary tract infection) SNOMED Code(s): 93381843 ICD Code: N39.0 - URINARY TRACT INFECTION, SITE NOT SPECIFIED Status: Acute Problem Details: Antibiotics discontinued per family's request for comfort measures. (3) Acute kidney injury superimposed on chronic kidney disease SNOMED Code(s): 14154357 ICD Code: N17.9 - ACUTE KIDNEY FAILURE, UNSPECIFIED; N18.9 - CHRONIC KIDNEY DISEASE, UNSPECIFIED Status: Acute Problem Details: Essentially no urine output for 24 hours prior to . (4) Systolic CHF, chronic SNOMED Code(s): 704649434, 222788874 ICD Code: I50.22 - CHRONIC SYSTOLIC (CONGESTIVE) HEART FAILURE Status: Acute Problem Details: See above. (5) Elevated liver enzymes SNOMED Code(s): 123727596 ICD Code: R74.8 - ABNORMAL LEVELS OF OTHER SERUM ENZYMES Status: Acute Problem Details: See above. (6) Hyperkalemia SNOMED Code(s): 94173346 ICD Code: E87.5 - HYPERKALEMIA Status: Acute Problem Details: Likely worsened due to ARF. (7) Polypharmacy SNOMED Code(s): 971964600 ICD Code: Z79.899 - OTHER ASSISTED (CURRENT) DRUG THERAPY Status: Acute (8) Palliative care encounter SNOMED Code(s): 819810134 ICD Code: Z51.5 - ENCOUNTER FOR PALLIATIVE CARE Status: Acute Problem Details: Comfort cares for last 24 hours. - Discharge Plan Home Medications: Home Meds ALPRAZolam [Xanax] 0.25 tab PO TID PRN 06/25/14 [History] FLUoxetine [PROzac] 40 mg PO DAILY 06/25/14 [History] Furosemide [Lasix] 40 mg PO DAILY 06/25/14 [History] Lisinopril [Prinivil] 5 mg PO BID 06/25/14 [History] Omeprazole 20 mg PO BIDAC 06/25/14 [History] Levothyroxine 75 mcg PO ACBRK 06/26/14 [History] Cyanocobalamin (Vitamin B-12) [Vitamin B-12] 500 mcg SL WITHDINNER 05/12/15 [ History] Acetaminophen [Pain Reliever] 1,000 mg PO WITHDINNER 03/10/16 [History] Dicyclomine [Bentyl] 10 mg PO WITHDINNER 03/10/16 [History] Fexofenadine HCl [Aller-Ease] 180 mg PO DAILY 03/10/16 [History] Fluticasone Propionate 2 spray JUSTEN DAILY 03/24/16 [History] Fluticasone/Salmeterol [Advair Diskus 500-50] 1 puff INH BID 03/24/16 [History] Potassium Chloride 20 meq PO BIDMEALS 03/24/16 [History] atorvaSTATin [Lipitor] 40 mg PO DAILY 07/25/16 [History] Aspirin [Halfprin] 81 mg PO DAILY 01/17/17 [History] Acetaminophen [Tylenol Arthritis Pain] 1,300 mg PO BID 01/18/17 [History] Albuterol [Ventolin HFA] 2 puff INH Q2H PRN 07/23/17 [History] Apixaban [Eliquis] 2.5 mg PO BID 07/23/17 [History] Olopatadine [Pataday 0.2% Ophth Soln] 1 drop EYEBOTH DAILY 11/16/17 [History] Ranitidine HCl [Zantac] 150 mg PO BID 11/16/17 [History] Lutein 15 mg PO BEDTIME 12/09/17 [History] Mag Hydrox/Al Hydrox/Simeth [Maalox Maximum Strength Susp] 30 ml PO TID PRN 08/27 [History] Mirtazapine [Remeron] 7.5 mg PO BEDTIME 12/09/17 [History] Tolterodine [Detrol LA 24 Hr] 2 mg PO DAILY 12/09/17 [History] Patient Handouts: Urinary Tract Infection, Adult, [id number], Antibiotic Resistance, Antibiotic Medicine, Adult, Fall Prevention in Hospitals, Adult, Acetylcysteine solution for injection, Venous Thromboembolism Prevention Forms: ED Department Discharge Referrals: Florentin Jones MD [Primary Care Provider] - - Discharge Summary/Plan Comment DC Time >30 min.: No - Patient Data Vitals - Most Recent: Last Vital Signs Temp 36.3 C 12/13/17 15:26 Pulse 88 12/13/17 15:26 Resp 15 12/13/17 15:26 BP 89/53 L 12/13/17 15: Pulse Ox 94 L 12/13/17 15:26 Weight - Most Recent: 57.153 kg Med Orders - Current: Current Medications Al Hydroxide/Mg Hydroxide (Mag-Al Susp) 30 ml PO TID PRN PRN Reason: Heartburn Last Admin: 12/10/17 11:55 Dose: 30 ml Albuterol (Ventolin Hfa) 0 gm INH Q2H PRN PRN Reason: Shortness of Breath Last Admin: 12/11/17 21:45 Dose: 2 puff Alprazolam (Xanax) 0.25 mg PO TID PRN PRN Reason: Anxiety Last Admin: 12/11/17 22:30 Dose: 0.25 mg Apixaban (Eliquis) 2.5 mg PO BID [facility] Last Admin: 12/12/17 13:02 Dose: Not Given Aspirin (Halfprin) 81 mg PO DAILY [facility] Last Admin: 12/12/17 14:09 Dose: Not Given Ceftriaxone Sodium (Rocephin) 1,000 mg IVPUSH Q24H [facility] Last Admin: 12/12/17 01:39 Dose: Not Given Estrogens Conjugated (Premarin Vaginal Crm) 0.5 gm VAG BEDTIME [facility] Last Admin: 12/12/17 00:19 Dose: Not Given Famotidine (Pepcid) 20 mg PO DAILY [facility] Last Admin: 12/12/17 13:14 Dose: 20 mg Fluoxetine HCl (Prozac) 40 mg PO DAILY [facility] Last Admin: 12/12/17 13:14 Dose: 40 mg Ampicillin Sodium 1 gm/ Sodium (Chloride) 50 mls @ 100 mls/hr IV Q6H [facility] Last Admin: 12/12/17 00:58 Dose: Not Given Ketotifen Fumarate (Ketotifen 0.025% Ophth Soln) 0 ml EYEBOTH BID [facility] Last Admin: 12/13/17 20:45 Dose: 1 drop Levothyroxine Sodium (Levothyroxine) 75 mcg PO ACBRK [facility] Last Admin: 12/12/17 07:58 Dose: 75 mcg Lutein (Lutein) 15 mg PO BEDTIME [facility] Mirtazapine (Remeron) 7.5 mg PO BEDTIME [facility] Last Admin: 12/10/17 21:50 Dose: 7.5 mg Mometasone Furoate/Formoterol Fumar (Dulera 200-5 Mcg) 0 puff IH BID [facility] Last Admin: 12/12/17 22:23 Dose: Not Given Ondansetron HCl (Zofran Odt) 4 mg PO Q6H PRN PRN Reason: Nausea/Vomiting Last Admin: 12/12/17 07:55 Dose: 4 mg Pantoprazole Sodium (Protonix) 40 mg PO ACBREAKFAST [facility] Last Admin: 12/12/17 07:59 Dose: 40 mg Tolterodine Tartrate (Detrol) 1 mg PO BID [facility] Last Admin: 12/12/17 13:02 Dose: Not Given Trolamine Salicylate (Aspercreme 10%) 1 gm TOP Q1H PRN PRN Reason: Pain Last Admin: 12/10/17 04:40 Dose: 1 gm Discontinued Medications Acetaminophen (Tylenol Extra Strength) 1,000 mg PO WITHDINNER [facility] Last Admin: 12/10/17 17:40 Dose: 1,000 mg Acetaminophen (Tylenol Arthritis Pain) 1,300 mg PO BID [facility] Last Admin: 12/11/17 15:24 Dose: Not Given Acetaminophen (Tylenol) 650 mg PO Q4H PRN PRN Reason: Pain Last Admin: 12/10/17 01:33 Dose: 650 mg Apixaban (Eliquis) 2.5 mg PO BID [facility] Last Admin: 12/10/17 21:49 Dose: 2.5 mg Apixaban (Eliquis) 2.5 mg PO DAILY [facility] Estrogens Conjugated (Premarin Vaginal Crm) 0.5 gm VAG DAILY [facility] Last Admin: 12/11/17 15:24 Dose: Not Given Famotidine (Pepcid) 20 mg PO BID [facility] Last Admin: 12/11/17 12:31 Dose: 20 mg Sodium Chloride (Normal Saline) 1,000 mls @ 75 mls/hr IV ASDIRECTED [facility] Last Admin: 12/10/17 23:50 Dose: 75 mls/hr Sodium Chloride (Normal Saline) 1,000 mls @ 75 mls/hr IV ASDIRECTED [facility] Ketotifen Fumarate (Ketotifen 0.025% Ophth Soln) 0 ml EYEBOTH BID [facility] Last Admin: 12/10/17 21:17 Dose: 1 drop Lutein (Lutein) 15 mg PO DAILY [facility] Last Admin: 12/10/17 14:20 Dose: Not Given Mometasone Furoate/Formoterol Fumar (Dulera 200-5 Mcg) 0 puff IH BID [facility] Last Admin: 12/10/17 21:18 Dose: 2 puff Tolterodine Tartrate (Detrol La 24 Hr) 2 mg PO DAILY [facility] Last Admin: 12/10/17 11:51 Dose: 2 mg
== END 2017-12-13 23:10 | disposition expired | DRG 442 ==
LOC: FB.ED 19:46 → FB.MS 21:07 → FB.ICU 12-12 08:52 → FB.MS 12-12 21:40
PROVIDERS: ADMIT Family Medicine; ATTEND Family Medicine
DX: K71.10 Toxic liver disease with hepatic necrosis, without coma (principal); N39.0 Urinary tract infection, site not specified; N17.9 Acute kidney failure, unspecified; I47.1 Supraventricular tachycardia; I34.0 Nonrheumatic mitral (valve) insufficiency; I50.22 Chronic systolic (congestive) heart failure; I13.0 Hypertensive heart and chronic kidney disease with heart failure and stage 1 through stage 4 chronic kidney disease, or unspecified chronic kidney disease; N18.9 Chronic kidney disease, unspecified; F41.9 Anxiety disorder, unspecified; Z51.5 Encounter for palliative care; Z66 Do not resuscitate; B95.2 Enterococcus as the cause of diseases classified elsewhere; R00.0 Tachycardia, unspecified; I95.9 Hypotension, unspecified; E87.5 Hyperkalemia; T37.8X5A Adverse effect of other specified systemic anti-infectives and antiparasitics, initial encounter; T39.1X5A Adverse effect of 4-Aminophenol derivatives, initial encounter; I25.10 Atherosclerotic heart disease of native coronary artery without angina pectoris; I48.91 Unspecified atrial fibrillation; N18.2 Chronic kidney disease, stage 2 (mild); K21.9 Gastro-esophageal reflux disease without esophagitis; I25.2 Old myocardial infarction; J45.909 Unspecified asthma, uncomplicated; E03.9 Hypothyroidism, unspecified; F41.8 Other specified anxiety disorders; F43.0 Acute stress reaction; Z79.899 Other long term (current) drug therapy; Z95.5 Presence of coronary angioplasty implant and graft; Z79.01 Long term (current) use of anticoagulants; Z85.3 Personal history of malignant neoplasm of breast; Z91.040 Latex allergy status; Z88.2 Allergy status to sulfonamides; Z88.8 Allergy status to other drugs, medicaments and biological substances; Z95.810 Presence of automatic (implantable) cardiac defibrillator; E78.5 Hyperlipidemia, unspecified
CPT/HCPCS: 36415; 74176; 80048; 81001; 85025; 87086; 87088; 87186; 87210; 96361; 99285; J7030; 51702; 76705; 80053; 80074; 82140; 83615; 83735; 84100; 85610; 85651; 85730; 86140; 94150; 96374; 97165-GO; 99284; A9270-GY; G0480; J0290; J0696; J1940; J2185; J2270; J3010; J7050; J7060